=== PATIENT | female | born 1960 | race Caucasian/White ===

== ENCOUNTER 2016-06-06 17:44 | Emergency (ER) | payer MEDICARE, MEDICAID ==
[2016-06-06 18:39] VITALS: BP 116/40
--- NOTE | 2016-06-06 18:49 | UC ---
General HPI - HPI Summary HPI Summary: complaint of cough , nasal congestion and headache that started approx 10 days occasionally productive cough with yellow sputum nasal congestion has become purulent sinus pressure for the last several days denies fever, sore throat, ear pain coughing spasms occasionally uses her nebulizer with relief approx 2x day for the last 2 weeks seen by cardiology and started on increase in lasix but feels no different- last dose yesterday denies feeling shortness of breath at this time, edema in BLE normal for her denies chest pain, palpitations, nauseous, dizziness, denies wheezing in her chest - History of Current Complaint Chief Complaint: UCGeneralIllness Stated Complaint: COUGH/CHEST CONGESTION Time Seen by Provider: 06/06/16 18:37 - Allergy/Home Medications Allergies/Adverse Reactions: Allergies Allergy/AdvReac Type Severity Reaction Status Date / Time Latex Allergy Itching Verified 06/06/16 18:39 Meloxicam [From Mobic] Allergy Rash Verified 05/01/15 11:31 Penicillins [PCN] Allergy Rash Verified 05/01/15 11:31 Home Medications: Home Medications Losartan Potassium [Cozaar] 25 mg PO DAILY 06/06/16 [History Confirmed 06/06/16] Spironolactone [Aldactone 25 MG-] 25 mg PO DAILY 06/06/16 [History Confirmed 12/14] PMH/Surg Hx/FS Hx/Imm Hx Previously Healthy: No - chronic CHf Endocrine History Of: Reports: Diabetes Denies: Thyroid Disease Cardiovascular History Of: Reports: Cardiac Disorders - A-fib, Hypertension Denies: Pacemaker/ICD, Congestive Heart Failure, Deep Vein Thrombosis Respiratory History Of: Reports: Asthma, Pneumonia Denies: COPD, Pulmonary Embolism GI/ History Of: Denies: Ulcer, Gastrointestinal Bleed, Gall Bladder Disease, Kidney Stones Neurological History Of: Denies: Dementia, Seizures Cancer History Of: Denies: Lung Cancer Other History Of: Anticoagulant Therapy - Surgical History Surgical History: Yes Surgery Procedure, Year, and Place: Cryo ablation, hysterectomy, hernia repair, cholecystectomy, knee surgery, cervical spine placement - Family History Known Family History: Positive: Cardiac Disease - mother, Hypertension - father Negative: Diabetes - Social History Occupation: Disabled Alcohol Use: None Substance Use Type: None Smoking Status (MU): Never Smoked Tobacco - Immunization History Most Recent Influenza Vaccination: fall 2014 Most Recent Tetanus Shot: unknown - received in past Most Recent Pneumonia Vaccination: never Review of Systems Constitutional: Negative Skin: Negative Eyes: Negative ENT: Ear Ache, Nasal Discharge Respiratory: Cough Cardiovascular: Negative Gastrointestinal: Negative Genitourinary: Negative Motor: Negative Neurovascular: Negative Musculoskeletal: Negative Neurological: Negative Psychological: Negative All Other Systems Reviewed And Are Negative: Yes Physical Exam Triage Information Reviewed: Yes Appearance: No Pain Distress, Well-Nourished, Obese Vital Signs: Initial Vital Signs Temp 97.8 F 06/06/16 18:32 Pulse 90 06/06/16 18:32 Resp 16 06/06/16 18:32 BP 116/40 06/06/16 18:32 Pulse Ox 99 06/06/16 18:32 Vital Signs Reviewed: Yes Eyes: Positive: Conjunctiva Clear ENT: Positive: Pharyngeal erythema, Nasal congestion, Nasal drainage, TM bulging , Other: - maxillary sinus tenderness. Negative: TM red Neck: Positive: No Lymphadenopathy Respiratory: Positive: Lungs clear, Normal breath sounds, No respiratory distress. Negative: Decreased breath sounds, Crackles, Rhonchi, Wheezing Cardiovascular: Positive: RRR, No Murmur, Pulses Normal Bowel Sounds: Positive: Present Musculoskeletal: Positive: Edema @ - BLE 1+ ankles Neurological: Positive: Alert Psychological Exam: Normal Skin Exam: Normal Course/Dx - Course Course Of Treatment: exam completed. will treat for siusitis d/t length of illness. lung sounds clear, edema in BLKE normal for patient denies s/s of CHF at this time, has followup with Dr Perez in 2 days - Differential Dx - Multi-Symptom Provider Diagnoses: sinusitis secondary to URI - Physician Notifications Discussed Patient Care With: Dr Restrepo Time Discussed With Above Provider: 19:04 Discharge - Discharge Plan Condition: Stable Disposition: HOME Prescriptions: DOXYcycline CAP(*) [DOXYcycline 100MG CAP(*)] 100 mg PO BID #20 cap Patient Education Materials: Sinusitis (ED) Referrals: Deneen Perez MD [Medical Doctor] - Additional Instructions: Please followup with Dr Perez regarding your lasix and CHF SINUSITIS What is Sinusitis? Sinusitis is inflammation or infection of the lining of the sinuses behind the bones in your cheeks or forehead. Sinusitis may occur following a common cold, flu, or other infection; allergies; a tooth infection that spreads to the sinuses; swimming in contaminated water; pressure changes in airplanes at high altitudes; violent sneezing or nose blowing or smoking or breathing other peoples smoke. Symptoms Might Include: Nasal Congestion Sneezing Watery eyes, eye irritation, or eye itching Headaches Pressure in the cheeks Wheezing Trouble smelling Sore throat and coughing may occur Treatment Recommendations: Take medicines as prescribed until completely gone. Drink plenty of fluids. Use saline nose spray to thin the mucous and help the sinuses drain. Use a vaporizer or humidifier. Apply warm compresses to the face or forehead several times a day for 10 to 20 minutes. Call Your Doctor or Return Here IF: Your pain increases during treatment. You develop a high temperature. You develop unusual swelling around the eyes. You have difficulty with your vision. You develop a severe headache, earache, or toothache. You develop increased fever or fever that does not respond to medication such as Tylenol?. You have difficulty breathing or catching your breath. You begin to have any other new symptoms that worry you
[2016-06-06] MEDS ORDERED: DOXYcycline CAP(*) 100 MG PO ONE (19:00)
== END 2016-06-06 19:28 | disposition home or self-care (01) ==
LOC: UCCORT 17:44
DX: J06.9 Acute upper respiratory infection, unspecified (principal); J32.9 Chronic sinusitis, unspecified; Z88.0 Allergy status to penicillin; Z88.8 Allergy status to other drugs, medicaments and biological substances
CPT/HCPCS: 99212; A9270-GY; G0463

== ENCOUNTER 2017-07-02 09:26 | Inpatient (IN) | payer MEDICARE, MEDICAID ==
[2017-07-02] MEDS ORDERED: NS 0.9% 1000 ML* 1,000 ML IV ONE (10:21)
--- NOTE | 2017-07-02 10:34 | RAD ---
HISTORY: Neurological changes, code carrillo COMPARISONS: None TECHNIQUE: Multiple contiguous axial CT scans were obtained of the head without intravenous contrast. FINDINGS: HEMORRHAGE/INFARCT: There is no hemorrhage or acute infarct. MASSES/SHIFT: There is no mass or shift. EXTRA-AXIAL SPACES: There are no extra-axial fluid collections. SULCI AND VENTRICLES: The sulci and ventricles are normal in size and position for the patient's stated age. CEREBRUM: There are no focal parenchymal abnormalities. BRAINSTEM: There are no focal parenchymal abnormalities. CEREBELLUM: There are no focal parenchymal abnormalities. VESSELS: The vessels are grossly normal. PARANASAL SINUSES: The paranasal sinuses are clear. ORBITS: The orbits are unremarkable. BONES AND SOFT TISSUE: Instantly noted is a dysraphic defect of the posterior arch of C1. OTHER: None IMPRESSION: NO ACUTE INTRACRANIAL PATHOLOGY. PRELIMINARY FINDINGS WERE DISCUSSED WITH DR. WEBER IN THE EMERGENCY DEPARTMENT AT APPROXIMATELY 10:30 AM ON JULY 02, 2017.
[2017-07-02 10:40] LABS: ABS Basophils 0.1 10^3/ul (0-0.2); ABS Eosinophils 0.2 10^3/ul (0-0.6); ABS Lymphocytes 1.8 10^3/ul (1.0-4.8); ABS Neutrophils 10.7 10^3/ul (1.5-7.7); ABS Nucleated RBC 0 10^3/ul; Eosinophil % 1.4 % (0-6); Hematocrit 44 % (35-47); Hemoglobin 14.5 g/dl (12.0-16.0); Lymphocyte % 13.4 % (25-47); Mean Corpuscular HGB Conc 33 g/dl (31-36); Mean Corpuscular Hemoglobin 31 pg (27-31); Mean Corpuscular Volume 92 fL (80-97); Mean Platelet Volume 8 um3 (7.4-10.4); Nucleated Red Blood Cells % 0; Platelet Count 277 10^3/ul (150-450); Red Blood Count 4.76 10^6/ul (4.0-5.4); Red Cell Distribution Width 14 % (10.5-15); White Blood Count 13.8 10^3/ul (3.5-10.8)
[2017-07-02] MEDS ORDERED: Ondansetron INJ* 2 MG/ML VIAL IV ONE (10:48)
[2017-07-02 10:56] LABS: EGFR Non-African American 102.3 (>60)
[2017-07-02 11:01] LABS: INR 0.94 (0.77-1.02)
[2017-07-02] MEDS ORDERED: Iodixanol* (CONTRAST) 320 MG/ML 100 ML SDV IV ONE (11:17)
[2017-07-02 11:35] LABS: Urine Appearance Clear; Urine Blood 1+ (Negative); Urine Color Yellow; Urine Ketones Negative (Negative); Urine Protein Negative (Negative); Urine Specific Gravity 1.024 (1.010-1.030); Urine Urobilinogen Negative (Negative)
--- NOTE | 2017-07-02 11:52 | RAD ---
HISTORY: Neurological changes COMPARISONS: May 01, 2015 VIEWS: 1: frontal portable view of the chest at 11:23 AM FINDINGS: LINES AND TUBES: None. CARDIOMEDIASTINAL SILHOUETTE: The cardiac silhouette is enlarged. The cardiomediastinal silhouette is otherwise normal for portable technique. PLEURA: The costophrenic angles are sharp. No pleural abnormalities are noted. LUNG PARENCHYMA: The lungs are clear. ABDOMEN: The upper abdomen is clear. There is no subphrenic gas. BONES AND SOFT TISSUES: The patient is status post anterior cervical fusion. IMPRESSION: CARDIOMEGALY. NO ACTIVE CARDIOPULMONARY DISEASE.
--- NOTE | 2017-07-02 12:06 | RAD ---
HISTORY: Left-sided weakness COMPARISONS: Head CT dated July 02, 2017, CT of the chest dated May 02, 2015 TECHNIQUE: Multiple contiguous axial CT scans were obtained of the head and neck after the administration of nonionic intravenous contrast timed to the systemic arterial phase of contrast enhancement. Coronal and sagittal multiplanar reformations are submitted for review. Multiple 3-D maximum intensity projection reconstructions are also submitted for review. FINDINGS: Evaluation is limited by suboptimal contrast opacification. CTA NECK: AORTIC ARCH: There is a normal three-vessel branching pattern of the aortic arch. There is no ostial or proximal stenosis of the cephalic great vessels. RIGHT VERTEBRAL ARTERY: There is loss of contrast enhancement of the distal V3 and V4 segments of the right vertebral artery, with reconstitution just proximal to the vertebrobasilar junction. This includes the expected origin of the right posterior inferior cerebellar artery, which is also not seen. LEFT VERTEBRAL ARTERY: The left vertebral artery is patent along its course, without stenosis. DOMINANCE: The left vertebral artery is dominant. RIGHT COMMON CAROTID ARTERY: The right common carotid artery is patent. The right carotid bifurcation occurs at C3-C4 RIGHT INTERNAL CAROTID ARTERY: There is no right internal carotid artery stenosis by NASCET criteria. RIGHT EXTERNAL CAROTID ARTERY: The right external carotid artery is unremarkable. LEFT COMMON CAROTID ARTERY: The left common carotid artery is patent. The left carotid bifurcation occurs at C3-C4 LEFT INTERNAL CAROTID ARTERY: There is no left internal carotid artery stenosis by NASCET criteria. LEFT EXTERNAL CAROTID ARTERY: The left external carotid artery is unremarkable. VENOUS CIRCULATION: The venous system is unremarkable. SALIVARY GLANDS: The parotid glands, submandibular glands, sublingual glands are normal. NASAL CAVITY/NASOPHARYNX: The nasal cavity and nasopharynx are normal. ORAL CAVITY/OROPHARYNX: The oral cavity and oropharynx are unremarkable. LARYNGEAL APPARATUS/HYPOPHARYNX: The laryngeal apparatus and hypopharynx are normal. UPPER AIRWAY/UPPER ESOPHAGUS: The visualized upper airway and esophagus are normal. LUNG APICES: There are multiple enlarged prevascular and paratracheal lymph nodes measuring up to 2.2 centers in short axis. This is new when compared to CT of the chest dated May 02, 2015. THYROID GLAND: The thyroid gland is normal. LYMPH NODES: As noted above, there are enlarged mediastinal lymph nodes. There is no appreciable cervical lymphadenopathy by size criteria. BONES AND SOFT TISSUES: Degenerative changes noted of the spine. The patient is status post anterior cervical fusion. Incidentally noted is a dysraphic defect of the arch of C1. CTA HEAD: INTRACRANIAL CIRCULATION: As noted above, there is loss of contrast enhancement of the distal right vertebral artery, including the expected origin of PICA which is not visualized. There is distal reconstitution of the V4 segment just proximal to the vertebrobasilar junction, likely from retrograde flow. Elsewhere, there is no aneurysm, vascular malformation, occlusion, or stenosis of the visualized intracranial circulation. The anterior communicating artery complex is clear. Bilateral posterior communicating arteries are identified. VENOUS CIRCULATION: The venous system is unremarkable. PERFUSION: There is no obvious parenchymal perfusion deficit. HEMORRHAGE/INFARCT: There is no hemorrhage or acute infarct. MASSES/SHIFT: There is no mass or shift. EXTRA-AXIAL SPACES: There are no extra-axial fluid collections. SULCI AND VENTRICLES: The sulci and ventricles are normal in size and position for the patient's stated age. CEREBRUM: There are no focal parenchymal abnormalities. BRAINSTEM: There are no focal parenchymal abnormalities. CEREBELLUM: There are no focal parenchymal abnormalities. PARANASAL SINUSES: The paranasal sinuses are clear. ORBITS: The orbits are unremarkable. BONES AND SOFT TISSUE: No bone or soft tissue abnormalities are noted. OTHER: There is no abnormal enhancement. IMPRESSION: 1. THERE IS LOSS OF CONTRAST ENHANCEMENT OF THE DISTAL RIGHT VERTEBRAL ARTERY, CONCERNING FOR DISTAL RIGHT VERTEBRAL ARTERY OCCLUSION, INCLUDING THE EXPECTED LOCATION OF THE ORIGIN OF THE RIGHT POSTERIOR INFERIOR CEREBELLAR ARTERY, WHICH IS ALSO NOT VISUALIZED AND PRESUMABLY OCCLUDED. 2. NO INTERNAL CAROTID ARTERY STENOSIS BY NASCET CRITERIA. 3. MEDIASTINAL LYMPHADENOPATHY PRELIMINARY FINDINGS WERE DISCUSSED WITH DR. WEBER IN THE EMERGENCY DEPARTMENT AT APPROXIMATELY 12 NOON ON JULY 02, 2017. . CPT II Codes: 3100F
[2017-07-02] MEDS ORDERED: Furosemide TAB* 20 MG PO SCH (14:00)
[2017-07-02] MEDS ORDERED: Dextrose 50% Syringe 50 ML* 25 GM/50 ML SYRINGE IV PUSH PRN (15:02)
[2017-07-02] MEDS ORDERED: amLODIPine TAB* 5 MG PO STA (15:05)
--- NOTE | 2017-07-02 15:39 | CONS ---
NEUROLOGY CONSULTATION: DATE OF CONSULT: 07/02/17 REQUESTING PHYSICIAN: Dr. Mcbride REASON FOR CONSULT: Marley arroyo. CHIEF COMPLAINT: Left-sided weakness and numbness. HISTORY OF PRESENT ILLNESS: Mylene Mendoza is 57-year-old woman with a history of type 2 diabetes; atrial fibrillation, on Pradaxa as well as morbid obesity, hypertension, and dyslipidemia who presents to the emergency department with the acute onset of left-sided numbness and weakness at approximately 8:15 this morning. She was seated on her couch using her laptop when she started to have a funny sensation in the back of her head/neck. She went to sit forward and states that she had the acute onset of numbness and a heavy feeling in her left arm and leg. She also remarked that her vision became blurry and she felt a sense of nausea. She may have also experienced some dizziness/vertigo at that time, but is no longer experiencing that now, though she does remain nauseated. Her daughter tried to help her get off the couch to ambulate to the bathroom and noticed that her meal attendant on her arm on the left side was weaker than normal. In addition, the patient felt that she could not move her left leg and began to cry when she realized she could not walk and so she sat down in a chair next to the couch. At that point, her daughter activated EMS and she was brought in. Upon Dr. Mcbride's evaluation of the patient a marley arroyo was called. The patient denies any past history of TIA or stroke. She mentions that when her daughter was a baby, she would have brief episodes of tingling involving her lips, but otherwise no previous history of neurologic changes. She has a right sided headache now but reports a history of only one migraine headache in her life. She takes her Pradaxa regularly and took it yesterday, though has not yet taken it this morning. She is not a candidate for tPA secondary to use of Pradaxa. PAST MEDICAL HISTORY: 1. Atrial fibrillation diagnosed in 2014. 2. Hypertension. 3. Dyslipidemia. 4. Asthma. 5. GERD. 6. Vih-fdpmwnv-iqqxspbmt type 2 diabetes. 7. Back pain. 8. Morbid obesity. 9. Overactive bladder. PAST SURGICAL HISTORY: 1. Hysterectomy. 2. Hernia repair. 3. Cholecystectomy. 4. Knee surgery. 5. C-spine pin placement. HOME MEDICATIONS: Home medications still need to be confirmed, but according to the list in [employer] include the following; 1. Metformin 500 mg daily. 2. Spironolactone 25 mg daily. 3. Ropinirole 0.5 mg twice daily. 4. Omeprazole 20 mg daily. 5. Multivitamin daily. 6. Singulair 10 mg daily. 7. Metoprolol 75 mg b.i.d. 8. Magnesium oxide 1 tablet daily. 9. Losartan 25 mg daily. 10. Furosemide 20 mg Tuesdays and . 11. Digoxin 0.25 mg daily. 12. Dabigatran 150 mg twice daily. 13. Vitamin C 500 mg daily. 14. Tylenol 1300 mg b.i.d. ALLERGIES: LATEX causes itching, and MELOXICAM and PENICILLINS cause rash. FAMILY HISTORY: There is a history of stroke, coronary artery disease, diabetes and hypertension in the patient's father. Mother had type 2 diabetes, hypertension, and coronary artery disease and a sister also has coronary artery disease. SOCIAL HISTORY: The patient lives at home with family. She does not smoke and drinks alcohol occasionally. REVIEW OF SYSTEMS: As per HPI, otherwise negative. PHYSICAL EXAM: Vital Signs: Temperature 97.4, blood pressure 128/75, heart rate 91, and oxygen saturation 94% to 96% on room air. On general examination, she is in no acute distress, lying on the ER gurney. She is morbidly obese. She is very poorly groomed and smells malodorous. Her heart is in an irregular rate and rhythm. Lungs were clear. Her skin is intact , but the soles of her feet have caked dirt on them. Her finger nails are dirty. Her affect is appropriate. On neurologic examination, she is fully awake, alert, and oriented. She has no aphasia or dysarthria. On cranial nerve testing, pupils are equal, round, and reactive from 3 to 2 mm. Versions were full, but there was some nystagmus on right lateral gaze with some torsional component. Alvarado were full to confrontation with no extinction to double simultaneous stimulation. Facial sensation and musculature are full and symmetric. Hearing is intact to voice. The palate elevates symmetrically and the tongue is midline. On motor examination, she gives good resistance in the proximal upper and lower extremities. Elbow flexion and extension also appears relatively full. She does have some drift of the left arm when completing the stroke scale, but it does not hit the bed. She is not able to fully flex her left lower extremity at the knee though she does give good resistance to the degree that she is able to flex the knee. The right upper and lower extremities are full strength. On sensory testing, pinprick is symmetric in the upper extremities, but subjectively decreased slightly in the left lower extremity. It appears that she may not be able to distinguish dull from sharp in the left lower extremity, but this is also questionable on the right lower extremity. [id number] was slow, but no clear ataxia on the left and normal on the right. [id number] was normal on the right and she could not perform on the left secondary to weakness. Her NIH stroke scale is 2, one point for each extremity on the left. DIAGNOSTIC STUDIES/LAB DATA: Her CBC is notable for a white count of 13.8 with elevated absolute neutrophils of 10.7. No coagulation studies are available. CMP is notable for a nonfasting glucose of 194 and otherwise just a slightly low chloride of 100 and elevated BUN to creatinine ratio of 31.7. Her nonfasting lipids show triglycerides 308, cholesterol 196, LDL 98, HDL 36.5. Noncontrast brain CT showed no acute intracranial abnormality and no evidence of prior infarction or clear evidence of small vessel disease. IMPRESSION: Mylene Mendoza is 57-year-old woman with a history of multiple cardiovascular risk factors including atrial fibrillation, on Pradaxa; hypertension; diabetes as well as morbid obesity, who presented to the emergency department with acute onset of left-sided weakness and numbness associated with some blurring of her vision and nausea. Her exam overall at this point is not very impressive, though I do note that she has some nystagmus when looking towards the right and she may have some subtle left-sided weakness as well as some subtle sensory changes on the left. She is not a candidate for tPA given the presence of Pradaxa and also her relatively minor deficits at this point. Stroke is within the differential and given the nystagmus seen on exam as well as the nausea and possible vertigo, I would consider a posterior circulation event and so I have asked Dr. Mcbride to get a CT angiogram of the head and neck here in the emergency department before making further decisions on whether she should be admitted to this hospital or not. If this were to show any signs of a large vessel occlusion then she would likely need to be transferred out, though I have low suspicion for that at this point based on her exam. If the CTA is unremarkable, then she should be admitted for stroke workup including MRI scan of the brain as well as monitoring on telemetry, echocardiogram, fasting lipid profile, and rechecking the hemoglobin A1c. At this point, I will continue her on her Pradaxa. I also note that her white count is elevated and it is not clear at this time if this is infectious in nature, but should be followed up on. I note that she has had some previous high white counts historically as well. Dr. Sanchez and Dr. Harkins will be taking over this weekend and will receive sign out on the patient if she remains in this hospital. [id number]/[facility] #: [id number] LARRY
--- NOTE | 2017-07-02 18:34 | ED ---
Nirali Sandoval Nilda, scribed for Kalpesh Mcbride MD on 07/02/17 at 1025 . Neurological HPI - HPI Summary HPI Summary: Code Mcdonnell [id number] This patient is a 57 year old F BIBA accompanied by family with a chief complaint of constant numbness and tingling in LUE and LLE since 814. Daughter reports pt could not walk because she was dragging left leg. Symptoms aggravated and alleviated by nothing. Per triage note, pt reports bilat blurred vision. Patient denies ALMONTE, dizziness, and diplopia. - History of Current Complaint Chief Complaint: EDNeurologicalDeficit Stated Complaint: WEAKNESS Time Seen by Provider: 07/02/17 10:13 Hx Obtained From: Patient Onset/Duration: Sudden Onset, Started hours ago Timing: Constant Pain Intensity: 0 Pain Scale Used: 0-10 Numeric Character: Weak - left sided Aggravating: Nothing Alleviating: Nothing - Allergy/Home Medications Allergies/Adverse Reactions: Allergies Allergy/AdvReac Type Severity Reaction Status Date / Time latex Allergy Itching Verified 07/02/17 15:18 meloxicam Allergy Rash Verified 07/02/17 15:18 Penicillins Allergy Rash Verified 07/02/17 15:18 Home Medications: Home Medications Acetaminophen [Tylenol 8 Hour Arthritis] 1,300 mg PO BID 07/02/17 [History Confirmed 07/02/17] Ascorbic Acid TAB* [Vitamin C TAB*] 500 mg PO DAILY 07/02/17 [History Confirmed 07/02/17] Losartan TAB* [Cozaar TAB*] 25 mg PO DAILY 07/02/17 [History Confirmed 07/02/17] Metoprolol Succinate XL TAB* [Toprol XL TAB*] 75 mg PO BID 07/02/17 [History Confirmed 07/02/17] Multivitamins/Minerals TAB* [Theragran/minerals TAB*] 1 tab PO DAILY 07/02/17 [ History Confirmed 07/02/17] Omeprazole CAP* [Prilosec CAP* 20 MG] 20 mg PO DAILY 07/02/17 [History Confirmed 07/02/17] Ropinirole TAB* [Requip TAB*] 0.5 mg PO BID 07/02/17 [History Confirmed 07/02/17 ] Spironolactone TAB* [Aldactone TAB*] 25 mg PO DAILY 07/02/17 [History Confirmed 07/02/17] PMH/Surg Hx/FS Hx/Imm Hx Endocrine/Hematology History: Reports: Hx Anticoagulant Therapy, Hx Diabetes Denies: Hx Blood Disorders, Hx Blood Transfusions, Hx Bone Marrow Disease, Hx Systemic Lupus Erythematosus, Hx Sickle Cell Disease, Hx Thyroid Disease, Hx Anemia, Hx Unexplained Bleeding, Other Endocrine/Hematological Disorders Cardiovascular History: Reports: Hx Hypercholesterolemia, Hx Hypertension Denies: Hx Aneurysm, Hx Angina, Hx Angioplasty, Hx Auto Implanted Cardiovert Defib, Hx Cardiac Arrest, Hx Cardiomegaly, Hx Congenital Heart Disease, Hx Congestive Heart Failure, Hx Coronary Artery Disease, Hx Deep Vein Thrombosis, Hx Embolism, Hx Hypotension, Hx Pacemaker/ICD, Hx Peripheral Vascular Disease, Hx Rheumatic Fever, Hx Syncope, Hx Valvular Heart Disease, Other Cardiovascular Problems/Disorders Respiratory History: Reports: Hx Asthma, Hx Pneumonia, Hx Seasonal Allergies Denies: Hx Chronic Bronchitis, Hx Chronic Obstructive Pulmonary Disease (COPD ), Hx Cystic Fibrosis, Hx Lung Cancer, Hx Pulmonary Edema, Hx Pulmonary Embolism , Hx Sleep Apnea, Other Respiratory Problems/Disorders GI History: Reports: Hx Gastroesophageal Reflux Disease Denies: Hx Cirrhosis, Hx Crohn's Disease, Hx Diverticulosis, Hx Gall Bladder Disease, Hx Gastrointestinal Bleed, Hx Hiatal Hernia, Hx Irritable Bowel, Hx Jaundice, Hx Obstructive Bowel, Hx Ileostomy, Hx Pyloric Stenosis, Hx Ulcer, Other GI Disorders History: Reports: Hx Kidney Infection Denies: Hx Acute Renal Failure, Hx Benign Prostatic Hyperplasia, Hx Chronic Renal Failure, Hx Dialysis, Hx Kidney Stones, Other Problems/Disorders Musculoskeletal History: Reports: Hx Arthritis Denies: Hx Back Problems, Hx Bursitis, Hx Congenital Bone Abnormalities, Hx Fibromyalgia, Hx Gout, Hx Orthopedic Injury, Hx Scoliosis, Hx Tendonitis, Other Musculoskeletal History Sensory History: Reports: Hx Contacts or Glasses Opthamlomology History: Reports: Hx Contacts or Glasses Neurological History: Denies: Hx Dementia, Hx Seizures - Surgical History Surgery Procedure, Year, and Place: Cryo ablation, hysterectomy, hernia repair, cholecystectomy, knee surgery, cervical spine placement Hx Anesthesia Reactions: No Infectious Disease History: No Infectious Disease History: Reports: Hx Hepatitis - related to mono Denies: Hx Human Immunodeficiency Virus (HIV), Hx of Known/Suspected MRSA, Hx Shingles, Hx Tuberculosis, Hx Known/Suspected VRE, Hx Known/Suspected VRSA, History Other Infectious Disease, Traveled Outside the [place] in Last 30 Days - Family History Known Family History: Positive: Cardiac Disease - mother, Hypertension - father Negative: Diabetes - Social History Alcohol Use: Rare Substance Use Type: Reports: Prescribed Smoking Status (MU): Never Smoked Tobacco Review of Systems Positive: Blurred Vision - bilat. Negative: Diplopia Neurological: Other - negative dizziness Positive: Weakness - L-sided, Paresthesia - LUE and LLE, Numbness - LUE and LLE. Negative: Headache All Other Systems Reviewed And Are Negative: Yes Physical Exam - Summary Physical Exam Summary: VITAL SIGNS: Reviewed. GENERAL: Patient is an obese female who is lying comfortable in the stretcher. She has poor hygiene. Patient is not in any acute respiratory distress. HEAD AND FACE: No signs of trauma. No ecchymosis, hematomas or skull depressions. No sinus tenderness. EYES: PERRLA, EOMI x 2, No injected conjunctiva, no nystagmus. EARS: Hearing grossly intact. Ear canals and tympanic membranes are within normal limits. MOUTH: Oropharynx within normal limits. NECK: Supple, trachea is midline, no adenopathy, no JVD, no carotid bruit, no c- spine tenderness, neck with full ROM. CHEST: Symmetric, no tenderness at palpation LUNGS: Clear to auscultation bilaterally. No wheezing or crackles. CVS: Regular rate and rhythm, S1 and S2 present, no murmurs or gallops appreciated. ABDOMEN: Soft, non-tender. No signs of distention. No rebound no guarding, and no masses palpated. Bowel sounds are normal. EXTREMITIES: no edema, no cyanosis or clubbing. NEURO: Alert and oriented x 3. Speech is normal and follows commands. Left sided weakness, with NIH score: 4 SKIN: Dry and warm Triage Information Reviewed: Yes Vital Signs On Initial Exam: Initial Vitals Temp Pulse Resp BP Pulse Ox 97.4 F 88 18 112/83 93 07/02/17 09:34 07/02/17 09:34 07/02/17 09:34 07/02/17 09:34 07/02/17 09:34 Vital Signs Reviewed: Yes Diagnostics - Vital Signs Vital Signs Temp Pulse Resp BP Pulse Ox 07/02/17 10:00 98 128/75 94 07/02/17 09:36 83 18 93 07/02/17 09:34 97.4 F 88 18 112/83 93 - Laboratory Lab Results: Lab Results 07/02/17 07/02/17 07/02/17 Range/Units 10:29 10:33 10:33 WBC 13.8 H (3.5-10.8) 10^3/ul RBC 4.76 (4.0-5.4) 10^6/ul Hgb 14.5 (12.0-16.0) g/dl Hct 44 (35-47) % MCV 92 (80-97) fL MCH 31 (27-31) pg MCHC 33 (31-36) g/dl RDW 14 (10.5-15) % Plt Count 277 (150-450) 10^3/ul MPV 8 (7.4-10.4) um3 Neut % (Auto) 77.5 (38-83) % Lymph % (Auto) 13.4 L (25-47) % Aiken % (Auto) 7.0 (1-9) % Eos % (Auto) 1.4 (0-6) % Baso % (Auto) 0.7 (0-2) % Absolute Neuts (auto) 10.7 H (1.5-7.7) 10^3/ul Absolute Lymphs (auto) 1.8 (1.0-4.8) 10^3/ul Absolute Monos (auto) 1.0 H (0-0.8) 10^3/ul Absolute Eos (auto) 0.2 (0-0.6) 10^3/ul Absolute Basos (auto) 0.1 (0-0.2) 10^3/ul Absolute Nucleated RBC 0 10^3/ul Nucleated RBC % 0 INR (Anticoag Therapy) 0.94 (0.77-1.02) APTT 33.3 (26.0-36.3) seconds Sodium (133-145) mmol/L Potassium (3.5-5.0) mmol/L Chloride (101-111) mmol/L Carbon Dioxide (22-32) mmol/L Anion Gap (2-11) mmol/L BUN (6-24) mg/dL Creatinine (0.51-0.95) mg/dL Est GFR ( Amer) (>60) Est GFR (Non-Af Amer) (>60) BUN/Creatinine Ratio (8-20) Glucose (70-100) mg/dL POC Glucose (mg/dL) 181 H (70-100) mg/dL Lactic Acid (0.5-2.0) mmol/L Calcium (8.6-10.3) mg/dL Total Bilirubin (0.2-1.0) mg/dL AST (13-39) U/L ALT (7-52) U/L Alkaline Phosphatase (34-104) U/L Troponin I (<0.04) ng/mL Total Protein (6.4-8.9) g/dL Albumin (3.2-5.2) g/dL Globulin (2-4) g/dL Albumin/Globulin Ratio (1-3) Triglycerides mg/dL Cholesterol mg/dL LDL Cholesterol mg/dL HDL Cholesterol mg/dL Urine Color Urine Appearance Urine pH (5-9) Ur Specific Stendal (1.010-1.030) Urine Protein (Negative) Urine Ketones (Negative) Urine Blood (Negative) Urine Nitrate (Negative) Urine Bilirubin (Negative) Urine Urobilinogen (Negative) Ur Leukocyte Esterase (Negative) Urine WBC (Auto) (Absent) Urine RBC (Auto) (Absent) Ur Squamous Epith Cells (Absent) Urine Bacteria (Absent) Urine Glucose (Negative) Blood Type Antibody Screen 07/02/17 07/02/17 07/02/17 Range/Units 10:33 10:33 10:33 WBC (3.5-10.8) 10^3/ul RBC (4.0-5.4) 10^6/ul Hgb (12.0-16.0) g/dl Hct (35-47) % MCV (80-97) fL MCH (27-31) pg MCHC (31-36) g/dl RDW (10.5-15) % Plt Count (150-450) 10^3/ul MPV (7.4-10.4) um3 Neut % (Auto) (38-83) % Lymph % (Auto) (25-47) % Aiken % (Auto) (1-9) % Eos % (Auto) (0-6) % Baso % (Auto) (0-2) % Absolute Neuts (auto) (1.5-7.7) 10^3/ul Absolute Lymphs (auto) (1.0-4.8) 10^3/ul Absolute Monos (auto) (0-0.8) 10^3/ul Absolute Eos (auto) (0-0.6) 10^3/ul Absolute Basos (auto) (0-0.2) 10^3/ul Absolute Nucleated RBC 10^3/ul Nucleated RBC % INR (Anticoag Therapy) (0.77-1.02) APTT (26.0-36.3) seconds Sodium 137 (133-145) mmol/L Potassium 4.1 (3.5-5.0) mmol/L Chloride 100 L (101-111) mmol/L Carbon Dioxide 27 (22-32) mmol/L Anion Gap 10 (2-11) mmol/L BUN 19 (6-24) mg/dL Creatinine 0.60 (0.51-0.95) mg/dL Est GFR ( Amer) 131.6 (>60) Est GFR (Non-Af Amer) 102.3 (>60) BUN/Creatinine Ratio 31.7 H (8-20) Glucose 194 H (70-100) mg/dL POC Glucose (mg/dL) (70-100) mg/dL Lactic Acid 3.9 H* (0.5-2.0) mmol/L Calcium 9.6 (8.6-10.3) mg/dL Total Bilirubin 0.40 (0.2-1.0) mg/dL AST 13 (13-39) U/L ALT 17 (7-52) U/L Alkaline Phosphatase 61 (34-104) U/L Troponin I 0.00 (<0.04) ng/mL Total Protein 6.7 (6.4-8.9) g/dL Albumin 3.9 (3.2-5.2) g/dL Globulin 2.8 (2-4) g/dL Albumin/Globulin Ratio 1.4 (1-3) Triglycerides 308 mg/dL Cholesterol 196 mg/dL LDL Cholesterol 98 mg/dL HDL Cholesterol 36.5 mg/dL Urine Color Urine Appearance Urine pH (5-9) Ur Specific Stendal (1.010-1.030) Urine Protein (Negative) Urine Ketones (Negative) Urine Blood (Negative) Urine Nitrate (Negative) Urine Bilirubin (Negative) Urine Urobilinogen (Negative) Ur Leukocyte Esterase (Negative) Urine WBC (Auto) (Absent) Urine RBC (Auto) (Absent) Ur Squamous Epith Cells (Absent) Urine Bacteria (Absent) Urine Glucose (Negative) Blood Type O Positive Antibody Screen Negative 07/02/17 Range/Units 11:00 WBC (3.5-10.8) 10^3/ul RBC (4.0-5.4) 10^6/ul Hgb (12.0-16.0) g/dl Hct (35-47) % MCV (80-97) fL MCH (27-31) pg MCHC (31-36) g/dl RDW (10.5-15) % Plt Count (150-450) 10^3/ul MPV (7.4-10.4) um3 Neut % (Auto) (38-83) % Lymph % (Auto) (25-47) % Aiken % (Auto) (1-9) % Eos % (Auto) (0-6) % Baso % (Auto) (0-2) % Absolute Neuts (auto) (1.5-7.7) 10^3/ul Absolute Lymphs (auto) (1.0-4.8) 10^3/ul Absolute Monos (auto) (0-0.8) 10^3/ul Absolute Eos (auto) (0-0.6) 10^3/ul Absolute Basos (auto) (0-0.2) 10^3/ul Absolute Nucleated RBC 10^3/ul Nucleated RBC % INR (Anticoag Therapy) (0.77-1.02) APTT (26.0-36.3) seconds Sodium (133-145) mmol/L Potassium (3.5-5.0) mmol/L Chloride (101-111) mmol/L Carbon Dioxide (22-32) mmol/L Anion Gap (2-11) mmol/L BUN (6-24) mg/dL Creatinine (0.51-0.95) mg/dL Est GFR ( Amer) (>60) Est GFR (Non-Af Amer) (>60) BUN/Creatinine Ratio (8-20) Glucose (70-100) mg/dL POC Glucose (mg/dL) (70-100) mg/dL Lactic Acid (0.5-2.0) mmol/L Calcium (8.6-10.3) mg/dL Total Bilirubin (0.2-1.0) mg/dL AST (13-39) U/L ALT (7-52) U/L Alkaline Phosphatase (34-104) U/L Troponin I (<0.04) ng/mL Total Protein (6.4-8.9) g/dL Albumin (3.2-5.2) g/dL Globulin (2-4) g/dL Albumin/Globulin Ratio (1-3) Triglycerides mg/dL Cholesterol mg/dL LDL Cholesterol mg/dL HDL Cholesterol mg/dL Urine Color Yellow Urine Appearance Clear Urine pH 5.0 (5-9) Ur Specific Stendal 1.024 (1.010-1.030) Urine Protein Negative (Negative) Urine Ketones Negative (Negative) Urine Blood 1+ H (Negative) Urine Nitrate Negative (Negative) Urine Bilirubin Negative (Negative) Urine Urobilinogen Negative (Negative) Ur Leukocyte Esterase Negative (Negative) Urine WBC (Auto) Trace(0-5/hpf) (Absent) Urine RBC (Auto) Trace(0-2/hpf) (Absent) Ur Squamous Epith Cells Present H (Absent) Urine Bacteria 1+ H (Absent) Urine Glucose Negative (Negative) Blood Type Antibody Screen Result Diagrams: 07/02/17 10:33 07/02/17 10:33 Lab Statement: Any lab studies that have been ordered have been reviewed, and results considered in the medical decision making process. - CT CTA head/neck CT Interpretation Completed By: Radiologist - CTA Head/Neck, per radiologist, reveals 1. THERE IS LOSS OF CONTRAST ENHANCEMENT OF THE DISTAL RIGHT VERTEBRAL ARTERY, CONCERNING FOR DISTAL RIGHT VERTEBRAL ARTERY OCCLUSION, INCLUDING THE EXPECTED LOCATION OF THE ORIGIN OF THE RIGHT POSTERIOR INFERIOR CEREBELLAR ARTERY, WHICH IS ALSO NOT VISUALIZED AND PRESUMABLY OCCLUDED. 2. NO INTERNAL CAROTID ARTERY STENOSIS BY NASCET CRITERIA. 3. MEDIASTINAL LYMPHADENOPATHY Dr. Mcbride has reviewed this radiology report. CT brain CT Interpretation Completed By: Radiologist - CT brain, per radiologist, reveals NO ACUTE INTRACRANIAL PATHOLOGY. Dr. Mcbride has reviewed this radiology report. CXR CT Interpretation Completed By: Radiologist - CXR, per radiologist, reveals CARDIOMEGALY. NO ACTIVE CARDIOPULMONARY DISEASE. Dr. Mcbride has reviewed this radiology report. - EKG 1041 Cardiac Rate: Other Rate EKG Rhythm: Atrial Fibrillation - 97 bpm EKG Interpretation: no ST elevations NIH Scale - NIH Scale Level of Consciousness: Alert/Keenly Responsive Ask Patient the Month and His/Her Age: Both Correct Ask Pt to Open/Close Eyes and Program Medical Director/Release Non-Paretic Hand: Both Correctly Best Gaze (Only Horizontal Eye Movement): Normal Visual Field Testing: No Visual Loss Facial Paresis-Pt to Smile & Close Eyes or Grimace Symmetry: Normal/Symmetrical Motor Function - Right Arm: No Drift-Holds 10 Seconds Motor Function - Left Arm: Drifts LT 10 seconds Motor Function - Right Leg: No Drift-Holds 10 Seconds Motor Function - Left Leg: Drifts LT 10 seconds Limb Ataxia-Must be out of Proportion to Weakness Present: Present in One Limb Sensory (Use Pinprick to Test Arms/Legs/Trunk/Face): Pinprick Less on Affected Best Language (Describe Picture, Name Items): No Aphasia Dysarthria (Read Several Words): Normal Extinction and Inattention: No Abnormality Total Score: 4 Course/Dx - Course Assessment/Plan: This patient is a 57 year old F BIBA accompanied by family with a chief complaint of constant numbness and tingling LUE and LLE since 814. Daughter reports pt could not walk because she was dragging left leg. Symptoms aggravated and alleviated by nothing. Per triage note, pt reports bilat blurred vision. Patient denies ALMONTE, dizziness, and diplopia. Code Mcdonnell 1019. Labs tests unremarkable except for Lactic Acid 3.9, WBC 13.8, Urine Bacteria 1+, Urine blood 1+. An EKG reveals Afib, 97 bpm, no ST elevations. CT brain, per radiologist, reveals NO ACUTE INTRACRANIAL PATHOLOGY. Dr. Mcbride has reviewed this radiology report. CXR, per radiologist, reveals CARDIOMEGALY. NO ACTIVE CARDIOPULMONARY DISEASE. Dr. Mcbride has reviewed this radiology report. Dr. Carrizales at bedside. No candidate for TPA since patient is taking blood thinners. She recommends CTA. CTA Head/Neck, per radiologist, reveals. 1. THERE IS LOSS OF CONTRAST ENHANCEMENT OF THE DISTAL RIGHT VERTEBRAL ARTERY, CONCERNING. FOR DISTAL RIGHT VERTEBRAL ARTERY OCCLUSION, INCLUDING THE EXPECTED LOCATION OF THE ORIGIN OF THE RIGHT POSTERIOR INFERIOR CEREBELLAR ARTERY, WHICH IS ALSO NOT VISUALIZED AND PRESUMABLY OCCLUDED. 2. NO INTERNAL CAROTID ARTERY STENOSIS BY NASCET CRITERIA. 3. MEDIASTINAL LYMPHADENOPATHY. Dr. Mcbride has reviewed this radiology report. After CTA Dr. Carrizales recommends admission to the Hospitalist. I discuss my physical exam, findings and test results with Dr. Tai from the hospitalist services and she agrees to admit patient to his services. Patient is hemodynamically stable alert and oriented x 3. - Differential Dx Differential Diagnoses Neuro: Positive: Benign Paroxysmal Positional Vertigo, Carbon Monoxide Poisoning, Cerebrovascular Accident, Transient Ischemic Attack, Vasovagal Reaction - Diagnoses Provider Diagnoses: Ischemic cerebrovascular accident (CVA), Hyperglycemia - Physician Notifications Discussed Care Of Patient With: Анна Carrizales - Neurologist Time Discussed With Above Provider: 10:28 Instructed by Provider To: Other - pt is not candidate for tpA since pt is taking blood thinner. - Critical Care Time Critical Care Time: 75-104 min Discharge - Discharge Plan Condition: Stable Disposition: ADMITTED TO [facility] The documentation as recorded by the Nirali adkins Nilda accurately reflects the service I personally performed and the decisions made by me, Kalpesh Mcbride MD.
[2017-07-02] MEDS: Insulin LISPRO* 1 UNITS UNIT SUBCUT SCH ×2 (18:37→21:04)
[2017-07-02] MEDS ORDERED: Ondansetron INJ* 2 MG/ML VIAL IV PRN (18:48)
[2017-07-02] MEDS ORDERED: LORazepam INJ* 2 MG/ML 1 ML VIAL IV PUSH PRN (18:49)
--- NOTE | 2017-07-02 19:23 | HP ---
AMENDED REPORT NOW INCLUDES COSIGNER DESIGNATION - ESIGNED BEFORE ADJUSTMENT HISTORY AND PHYSICAL: DATE OF ADMISSION: 07/02/17 PRIMARY CARE PHYSICIAN: Dr. Eagle Schaeffer. MELTER CASTER: Deneen Perez MD ATTENDING PROVIDER: Dr. Tai * (DICTATED BY MIKO BOLES NP) CHIEF COMPLAINT: Numbness and tingling of the face, the left upper extremity and the left lower extremity since approximately 8:15 this morning. HISTORY OF PRESENT ILLNESS: This is a 57-year-old female patient with a history of coronary artery disease and heart failure, diabetes mellitus, hyperlipidemia, hypertension, who presented to the emergency department with these symptoms. The patient states she was dragging her left leg, was unable to walk, also had some blurred vision and some diplopia bilaterally. The patient stated that she did not have a headache or any dizziness, however, but that she felt like she could not ambulate and that she was dragging her left foot behind her. A Code Patel was called at 10:19 this morning when she arrived in the emergency department. CAT scan and CTA were performed in the emergency department. The CTA of the head and neck showed loss of contrast enhancement of the distal right vertebral artery concerning for distal right vertebral artery occlusion including the expected location of the origin of right posterior-inferior cerebellar artery which is also not visualized and presumably occluded. Also found that there was no internal carotid artery stenosis. There was some mediastinal lymphadenopathy. CT of the brain revealed no acute intracranial pathology and no intracranial hemorrhage. Chest x -ray showed some cardiomegaly, but no acute cardiopulmonary disease. EKG, the patient is in persistent atrial fibrillation, this is at her baseline. PAST SURGICAL HISTORY: Significant for: 1. Hysterectomy. 2. Hernia repair. 3. Cholecystectomy. 4. Knee surgery. 5. C-spine surgery. MEDICATIONS: At home include: 1. Ropinirole 0.5 mg 2 times a day. 2. Singulair 10 mg daily. 3. Pradaxa 150 mg 2 times a day. 4. Metformin 500 mg daily. 5. Spironolactone 25 mg daily. 6. Mag-Ox 400 mg daily. 7. Losartan 25 mg daily. 8. Lasix 2 tablets Tuesdays and p.r.n. 3-pound weight gain. 9. Digoxin 0.25 mg daily. 10. Vitamin C 500 mg daily. 11. Omeprazole 20 mg daily. 12. Metoprolol succinate 75 mg 2 times a day. 13. Tylenol as needed. 14. Multivitamin daily. SOCIAL HISTORY: The patient does not smoke, rarely drinks alcohol, does not use any illicit drug use. Her daughter, Miladis, is her healthcare proxy. She is a full code. REVIEW OF SYSTEMS: A 10-point review of systems is negative except as noted in the HPI. PHYSICAL EXAMINATION GENERAL: The patient is alert, morbidly obese, in no acute distress. She is oriented x3. VITAL SIGNS: Currently, temperature 97.4, heart rate 99, atrial fibrillation on the monitor; respiratory rate 20, satting at 93% on room air, blood pressure is 146/82. HEENT: The patient is atraumatic, normocephalic. PERRLA with nonicteric sclerae. NECK: Supple and no JVD noted. No carotid bruits auscultated. LUNGS: Clear bilaterally at the apices to auscultation. No wheezing, rhonchi, or rales noted at that bases. CARDIOVASCULAR: Rate and rhythm are irregular. She has atrial fibrillation on monitor. No murmurs, gallops, or rubs appreciated. ABDOMEN: Obese, nontender. MUSCULOSKELETAL: There is no clubbing, no cyanosis, no edema. She has brisk cap refill. NEUROLOGIC: She is intact. She does not have a pronator drift. No focal deficits noted. PSYCHIATRIC: She is cooperative and appropriate. LABORATORY DATA: WBC is 13.8, RBC is 4.76, hemoglobin 14.5, hematocrit 44, platelets 277,000. Sodium 137, potassium 4.1, chloride 100, CO2 of 27, BUN 19, creatinine 0.6, GFR 102.3, glucose 194, lactic acid 3.9, calcium 9.6, AST 13, ALT 17, alk phos 61. Troponin 0.00. Total protein 6.7. Albumin 3.9. Triglycerides 308. Total cholesterol 196, LDL 98, and HDL is 36.5. Urinalysis shows 1+ blood, squamous epithelial cells; negative for nitrites or leukocytes. Coags: INR is 0.94, APTT is 33.3. IMAGING: EKG shows persistent atrial fibrillation, rate between 80s and 90s. Chest x-ray shows cardiomegaly with no acute cardiopulmonary process. IMPRESSION: The patient has had an NIH stroke scale done in the ER and swallow eval. She has passed her swallow screen, so we can discontinue her n.p.o. order. Her NIH screen is 4. Neurology was already at the bedside for consultation. I believe she has been admitted to medical service, so this is a 57-year-old female with a history of cardiac disease, diabetes, and morbid obesity, who now presents with acute cerebrovascular accident presenting in the distal right vertebral artery. PLAN: The patient has already had CTA of the head and neck. Neurology will be following her. Lipids already have been drawn. We will follow labs again tomorrow. The patient is already anticoagulated on Pradaxa for her atrial fibrillation, so we will look to Neurology for further recommendations concerning the stroke at this time. She does not have any overt deficits currently, so assuming that we will do risk optimization with this patient, she is not in rapid ventricular response and her atrial fibrillation seems to be at baseline. We will continue her home medications as ordered with the exception of her metformin. She will be placed on lispro sliding scale. Consistent carb diet and telemetry. Again, we will look to Neurology for any additional input on this patient's case. The patient is a full code. Again, her daughter is her healthcare proxy. We will continue to follow this patient closely and look for any new changes. She will have neurologic checks q.4 hours. This plan has been discussed with Dr. Tyler Tai, he is in agreement with the plan. MIKO BOLES NP [id number]/CPS #: [id number] LARRY
--- NOTE | 2017-07-02 19:51 | RAD ---
INDICATION: Posterior circulation CVA. COMPARISON: Comparison is made with a prior CT angiogram of the head and neck and CT of the brain from every second 2018. TECHNIQUE: Sagittal T1, axial T1, T2, susceptibility, FLAIR and diffusion weighted images were obtained. The examination is limited. The patient did not completely fit into the head coil. FINDINGS: The ventricles, cisterns and sulci appear to be within normal limits. No significant focal abnormality or mass effect is seen. There is suggestion of a very small area of restricted diffusion in the anterior medulla on the right side measuring approximately 3 mm in size. There is also a second area of restricted diffusion which appears to be associated with a small extra-axial mass present at the vertex adjacent to the midline on the left side measuring 1.2 x 0.6 cm in size suspicious for a small meningioma. There is no evidence for hemorrhage. There is loss of the flow-void in the right vertebral artery suspicious for occlusion as noted on the prior CTA exam. The visualized portion of the paranasal sinuses and mastoid air cells appear clear. IMPRESSION: 1. LIMITED EXAM. 2. PROBABLE SMALL AREA OF RESTRICTED DIFFUSION AND INFARCT IN THE ANTERIOR ASPECT OF THE MEDULLA ON THE RIGHT SIDE. 3. PROBABLE OCCLUSION OF THE DISTAL RIGHT VERTEBRAL ARTERY. 4. SMALL EXTRA-AXIAL MASS PRESENT POSTERIORLY AT THE VERTEX ON THE LEFT SIDE SUSPICIOUS FOR MENINGIOMA. RECOMMEND FURTHER EVALUATION WITH A CONTRAST-ENHANCED MRI OF THE BRAIN.
[2017-07-02] MEDS ORDERED: Atorvastatin* 80 MG TAB PO ONE (20:16)
[2017-07-02] MEDS: CMC:Dabigatran CAP(NF) 150 MG CAP PO SCH (21:06)
[2017-07-02] MEDS: Metoprolol Succinate XL TAB* 25 MG PO SCH (21:06)
[2017-07-02] MEDS: Ropinirole TAB* 0.5 MG TAB PO SCH (21:06)
[2017-07-02] MEDS: Aspirin EC Low Dose* 81 MG TAB.EC PO SCH (21:06)
[2017-07-03 07:19] LABS: Hematocrit 42 % (35-47); Hemoglobin 13.9 g/dl (12.0-16.0); Mean Corpuscular HGB Conc 33 g/dl (31-36); Mean Corpuscular Hemoglobin 30 pg (27-31); Mean Corpuscular Volume 92 fL (80-97); Mean Platelet Volume 8 um3 (7.4-10.4); Platelet Count 264 10^3/ul (150-450); Red Blood Count 4.62 10^6/ul (4.0-5.4); Red Cell Distribution Width 14 % (10.5-15); White Blood Count 14.4 10^3/ul (3.5-10.8)
[2017-07-03] MEDS: Insulin LISPRO* 1 UNITS UNIT SUBCUT SCH ×4 (07:34→22:07)
[2017-07-03 07:38] LABS: EGFR Non-African American 104.3 (>60)
[2017-07-03] MEDS: Multivitamins/Minerals TAB PO SCH (08:33)
[2017-07-03] MEDS: Magnesium Oxide TAB* 400 MG PO SCH (08:33)
[2017-07-03] MEDS: Losartan TAB* 25 MG PO SCH (08:33)
[2017-07-03] MEDS: Omeprazole CAP* 20 MG PO SCH (08:33)
[2017-07-03] MEDS: CMC:Dabigatran CAP(NF) 150 MG CAP PO SCH ×2 (08:33→21:56)
[2017-07-03] MEDS: Aspirin EC Low Dose* 81 MG TAB.EC PO SCH (08:33)
[2017-07-03] MEDS: Spironolactone TAB* 25 MG PO SCH (08:33)
[2017-07-03] MEDS: Ascorbic Acid TAB* 500 MG PO SCH (08:33)
[2017-07-03] MEDS: Montelukast Sodium TAB* 10 MG PO SCH (08:33)
[2017-07-03] MEDS: Ropinirole TAB* 0.5 MG TAB PO SCH ×2 (08:33→21:56)
[2017-07-03] MEDS: Digoxin TAB* 0.25 MG PO SCH (08:33)
[2017-07-03] MEDS: Metoprolol Succinate XL TAB* 25 MG PO SCH ×2 (08:33→21:57)
[2017-07-03 08:37] LABS: Monocytes % 6 % (0-13)
--- NOTE | 2017-07-03 14:54 | PN ---
Subjective Date of Service: 07/03/17 Interval History: Feels stronger today. No new c/o. Objective Active Medications: Ascorbic Acid (Vitamin C Tab*) 500 mg PO DAILY [facility] Last Admin: 07/03/17 08:33 Dose: 500 mg Aspirin (Aspirin Ec Low Dose*) 81 mg PO DAILY [facility] Last Admin: 07/03/17 08:33 Dose: 81 mg Atorvastatin Calcium (Lipitor*) 80 mg PO 1700 [facility] Dabigatran (Pradaxa Cap(Nf)) 150 mg PO BID [facility] Last Admin: 07/03/17 08:33 Dose: 150 mg Dextrose (D50w Syringe 50 Ml*) 12.5 gm IV PUSH .FOR FS < 60 - SS PRN PRN Reason: FS < 60 Digoxin (Lanoxin Tab*) 0.25 mg PO DAILY [facility] Last Admin: 07/03/17 08:33 Dose: 0.25 mg Insulin Human Lispro (Humalog*) 0 units SUBCUT ACHS [facility] PRN Reason: Protocol Last Admin: 07/03/17 11:46 Dose: Not Given Lorazepam (Ativan Inj*) 1 mg IV PUSH ONCE PRN PRN Reason: ANXIETY FOR MRI Stop: 07/03/17 18:48 Losartan Potassium (Cozaar Tab*) 25 mg PO DAILY [facility] Last Admin: 07/03/17 08:33 Dose: 25 mg Magnesium Oxide (Magox 400 Tab*) 400 mg PO DAILY [facility] Last Admin: 07/03/17 08:33 Dose: 400 mg Metoprolol Succinate (Toprol Xl Tab*) 75 mg PO BID [facility] Last Admin: 07/03/17 08:33 Dose: 75 mg Montelukast Sodium (Singulair Tab*) 10 mg PO DAILY [facility] Last Admin: 07/03/17 08:33 Dose: 10 mg Multivitamins/Minerals (Theragran/Minerals Tab*) 1 tab PO DAILY [facility] Last Admin: 07/03/17 08:33 Dose: 1 tab Omeprazole (Prilosec Cap*) 20 mg PO DAILY [facility] Last Admin: 07/03/17 08:33 Dose: 20 mg Ondansetron HCl (Zofran Inj*) 4 mg IV Q6H PRN PRN Reason: NAUSEA Last Admin: 07/02/17 21:05 Dose: 4 mg Ropinirole HCl (Requip Tab*) 0.5 mg PO BID [facility] Last Admin: 07/03/17 08:33 Dose: 0.5 mg Spironolactone (Aldactone Tab*) 25 mg PO DAILY [facility] Last Admin: 07/03/17 08:33 Dose: 25 mg Vital Signs - 8 hr 07/03/17 07/03/17 07/03/17 08:10 08:33 11:14 Temperature 98.2 F 97.9 F Pulse Rate 101 100 85 Respiratory 18 22 Rate Blood Pressure 130/71 119/64 (mmHg) O2 Sat by Pulse 98 97 Oximetry Oxygen Devices in Use Now: None Appearance: Alert, partly up in bed. In good spirits. Looks comfortable. Eyes: No Scleral Icterus Neck: NL Appearance and Movements; NL JVP, No Thyroid Enlargement, Masses Respiratory: Symmetrical Chest Expansion and Respiratory Effort, Clear to Auscultation, Clear to Percussion Cardiovascular: NL Sounds; No Murmurs; No JVD, RRR, No Edema, - Neurological: Alert and Oriented x 3, NL Sensation - Moves all limbs well. Result Diagrams: 07/03/17 07:13 07/03/17 07:09 Additional Lab and Data: Lab Results 07/02/17 07/02/17 07/02/17 Range/Units 10:29 10:33 10:33 WBC 13.8 H (3.5-10.8) 10^3/ul RBC 4.76 (4.0-5.4) 10^6/ul Hgb 14.5 (12.0-16.0) g/dl Hct 44 (35-47) % MCV 92 (80-97) fL MCH 31 (27-31) pg MCHC 33 (31-36) g/dl RDW 14 (10.5-15) % Plt Count 277 (150-450) 10^3/ul MPV 8 (7.4-10.4) um3 Neut % (Auto) 77.5 (38-83) % Lymph % (Auto) 13.4 L (25-47) % Converse % (Auto) 7.0 (1-9) % Eos % (Auto) 1.4 (0-6) % Baso % (Auto) 0.7 (0-2) % Absolute Neuts (auto) 10.7 H (1.5-7.7) 10^3/ul Absolute Lymphs (auto) 1.8 (1.0-4.8) 10^3/ul Absolute Monos (auto) 1.0 H (0-0.8) 10^3/ul Absolute Eos (auto) 0.2 (0-0.6) 10^3/ul Absolute Basos (auto) 0.1 (0-0.2) 10^3/ul Absolute Nucleated RBC 0 10^3/ul Nucleated RBC % 0 INR (Anticoag Therapy) 0.94 (0.77-1.02) APTT 33.3 (26.0-36.3) seconds Sodium (133-145) mmol/L Potassium (3.5-5.0) mmol/L Chloride (101-111) mmol/L Carbon Dioxide (22-32) mmol/L Anion Gap (2-11) mmol/L BUN (6-24) mg/dL Creatinine (0.51-0.95) mg/dL Est GFR ( Amer) (>60) Est GFR (Non-Af Amer) (>60) BUN/Creatinine Ratio (8-20) Glucose (70-100) mg/dL POC Glucose (mg/dL) 181 H (70-100) mg/dL Lactic Acid (0.5-2.0) mmol/L Calcium (8.6-10.3) mg/dL Total Bilirubin (0.2-1.0) mg/dL AST (13-39) U/L ALT (7-52) U/L Alkaline Phosphatase (34-104) U/L Troponin I (<0.04) ng/mL Total Protein (6.4-8.9) g/dL Albumin (3.2-5.2) g/dL Globulin (2-4) g/dL Albumin/Globulin Ratio (1-3) Triglycerides mg/dL Cholesterol mg/dL LDL Cholesterol mg/dL HDL Cholesterol mg/dL Urine Color Urine Appearance Urine pH (5-9) Ur Specific [place] (1.010-1.030) Urine Protein (Negative) Urine Ketones (Negative) Urine Blood (Negative) Urine Nitrate (Negative) Urine Bilirubin (Negative) Urine Urobilinogen (Negative) Ur Leukocyte Esterase (Negative) Urine WBC (Auto) (Absent) Urine RBC (Auto) (Absent) Ur Squamous Epith Cells (Absent) Urine Bacteria (Absent) Urine Glucose (Negative) Blood Type Antibody Screen 07/02/17 07/02/17 07/02/17 Range/Units 10:33 10:33 10:33 WBC (3.5-10.8) 10^3/ul RBC (4.0-5.4) 10^6/ul Hgb (12.0-16.0) g/dl Hct (35-47) % MCV (80-97) fL MCH (27-31) pg MCHC (31-36) g/dl RDW (10.5-15) % Plt Count (150-450) 10^3/ul MPV (7.4-10.4) um3 Neut % (Auto) (38-83) % Lymph % (Auto) (25-47) % Converse % (Auto) (1-9) % Eos % (Auto) (0-6) % Baso % (Auto) (0-2) % Absolute Neuts (auto) (1.5-7.7) 10^3/ul Absolute Lymphs (auto) (1.0-4.8) 10^3/ul Absolute Monos (auto) (0-0.8) 10^3/ul Absolute Eos (auto) (0-0.6) 10^3/ul Absolute Basos (auto) (0-0.2) 10^3/ul Absolute Nucleated RBC 10^3/ul Nucleated RBC % INR (Anticoag Therapy) (0.77-1.02) APTT (26.0-36.3) seconds Sodium 137 (133-145) mmol/L Potassium 4.1 (3.5-5.0) mmol/L Chloride 100 L (101-111) mmol/L Carbon Dioxide 27 (22-32) mmol/L Anion Gap 10 (2-11) mmol/L BUN 19 (6-24) mg/dL Creatinine 0.60 (0.51-0.95) mg/dL Est GFR ( Amer) 131.6 (>60) Est GFR (Non-Af Amer) 102.3 (>60) BUN/Creatinine Ratio 31.7 H (8-20) Glucose 194 H (70-100) mg/dL POC Glucose (mg/dL) (70-100) mg/dL Lactic Acid 3.9 H* (0.5-2.0) mmol/L Calcium 9.6 (8.6-10.3) mg/dL Total Bilirubin 0.40 (0.2-1.0) mg/dL AST 13 (13-39) U/L ALT 17 (7-52) U/L Alkaline Phosphatase 61 (34-104) U/L Troponin I 0.00 (<0.04) ng/mL Total Protein 6.7 (6.4-8.9) g/dL Albumin 3.9 (3.2-5.2) g/dL Globulin 2.8 (2-4) g/dL Albumin/Globulin Ratio 1.4 (1-3) Triglycerides 308 mg/dL Cholesterol 196 mg/dL LDL Cholesterol 98 mg/dL HDL Cholesterol 36.5 mg/dL Urine Color Urine Appearance Urine pH (5-9) Ur Specific [place] (1.010-1.030) Urine Protein (Negative) Urine Ketones (Negative) Urine Blood (Negative) Urine Nitrate (Negative) Urine Bilirubin (Negative) Urine Urobilinogen (Negative) Ur Leukocyte Esterase (Negative) Urine WBC (Auto) (Absent) Urine RBC (Auto) (Absent) Ur Squamous Epith Cells (Absent) Urine Bacteria (Absent) Urine Glucose (Negative) Blood Type O Positive Antibody Screen Negative 07/02/17 Range/Units 11:00 WBC (3.5-10.8) 10^3/ul RBC (4.0-5.4) 10^6/ul Hgb (12.0-16.0) g/dl Hct (35-47) % MCV (80-97) fL MCH (27-31) pg MCHC (31-36) g/dl RDW (10.5-15) % Plt Count (150-450) 10^3/ul MPV (7.4-10.4) um3 Neut % (Auto) (38-83) % Lymph % (Auto) (25-47) % Converse % (Auto) (1-9) % Eos % (Auto) (0-6) % Baso % (Auto) (0-2) % Absolute Neuts (auto) (1.5-7.7) 10^3/ul Absolute Lymphs (auto) (1.0-4.8) 10^3/ul Absolute Monos (auto) (0-0.8) 10^3/ul Absolute Eos (auto) (0-0.6) 10^3/ul Absolute Basos (auto) (0-0.2) 10^3/ul Absolute Nucleated RBC 10^3/ul Nucleated RBC % INR (Anticoag Therapy) (0.77-1.02) APTT (26.0-36.3) seconds Sodium (133-145) mmol/L Potassium (3.5-5.0) mmol/L Chloride (101-111) mmol/L Carbon Dioxide (22-32) mmol/L Anion Gap (2-11) mmol/L BUN (6-24) mg/dL Creatinine (0.51-0.95) mg/dL Est GFR ( Amer) (>60) Est GFR (Non-Af Amer) (>60) BUN/Creatinine Ratio (8-20) Glucose (70-100) mg/dL POC Glucose (mg/dL) (70-100) mg/dL Lactic Acid (0.5-2.0) mmol/L Calcium (8.6-10.3) mg/dL Total Bilirubin (0.2-1.0) mg/dL AST (13-39) U/L ALT (7-52) U/L Alkaline Phosphatase (34-104) U/L Troponin I (<0.04) ng/mL Total Protein (6.4-8.9) g/dL Albumin (3.2-5.2) g/dL Globulin (2-4) g/dL Albumin/Globulin Ratio (1-3) Triglycerides mg/dL Cholesterol mg/dL LDL Cholesterol mg/dL HDL Cholesterol mg/dL Urine Color Yellow Urine Appearance Clear Urine pH 5.0 (5-9) Ur Specific [place] 1.024 (1.010-1.030) Urine Protein Negative (Negative) Urine Ketones Negative (Negative) Urine Blood 1+ H (Negative) Urine Nitrate Negative (Negative) Urine Bilirubin Negative (Negative) Urine Urobilinogen Negative (Negative) Ur Leukocyte Esterase Negative (Negative) Urine WBC (Auto) Trace(0-5/hpf) (Absent) Urine RBC (Auto) Trace(0-2/hpf) (Absent) Ur Squamous Epith Cells Present H (Absent) Urine Bacteria 1+ H (Absent) Urine Glucose Negative (Negative) Blood Type Antibody Screen Assess/Plan/Problems-Billing Assessment: - Patient Problems (1) CVA (cerebral vascular accident) Current Visit: Yes Status: Acute Code(s): I63.9 - CEREBRAL INFARCTION, UNSPECIFIED SNOMED Code(s): 912973619 Comment: R medulla. Continue ASA, dabigatran. Start atorvastatin. PT/OT ordered. Discussed with Dr. Sanchez on 07/03. (2) Atrial fibrillation with RVR Current Visit: No Status: Acute Priority: High Code(s): I48.91 - UNSPECIFIED ATRIAL FIBRILLATION SNOMED Code(s): 851351186962284 Comment: Continue Metoprolol,digoxin, pradaxa (3) DM type 2 (diabetes mellitus, type 2) Current Visit: No Status: Acute Priority: High Comment: Continue Lispro by SS. Metformin on hold. (4) HTN (hypertension) Current Visit: No Status: Acute Priority: High Code(s): I10 - ESSENTIAL ( PRIMARY) HYPERTENSION SNOMED Code(s): 59257632 Comment: Controlled with metoprolol, losartan. (5) GERD (gastroesophageal reflux disease) Current Visit: No Status: Acute Code(s): K21.9 - GASTRO-ESOPHAGEAL REFLUX DISEASE WITHOUT ESOPHAGITIS SNOMED Code(s): 405394734 Comment: Continue omeprazole. (6) Cardiomyopathy Current Visit: No Status: Acute Priority: High Code(s): I42.9 - CARDIOMYOPATHY, UNSPECIFIED SNOMED Code(s): 50847248 Comment: Non ischemic cardiomyopathy with severe left systolic ventricular dysfunction - EF 20%. Continue BB, spironolactone. (7) Morbid obesity Current Visit: Yes Status: Acute Code(s): E66.01 - MORBID (SEVERE) OBESITY DUE TO EXCESS CALORIES SNOMED Code(s): 496908980 Comment: BMI 54.9.
[2017-07-03] MEDS: Atorvastatin* 80 MG TAB PO SCH (17:05)
--- NOTE | 2017-07-03 21:27 | CONS ---
NEUROLOGY FOLLOWUP CONSULTATION: DATE OF FOLLOWUP: 07/03/17 LOCATION: She is in room 444. HOSPITALIST: Dr. Tai. CHIEF COMPLAINT: Left-sided weakness. INTERVAL HISTORY: Since yesterday, Ms. Mendoza feels that her left upper extremity and lower extrem ity function is much improved. She had a little bit of nausea last night, but none since. She was n ot able to use much of her hand yesterday and now she can open and close it. She does not notice any weakness in her legs at this point. She does not have any problems with vertigo, double vision, or any facial numbness or change in speech. I asked if she takes her Pradaxa on a regular basis and she insists that she does. She does not think she missed any doses the week before this event. MEDICATIONS: Reviewed and she is now on: 1. Aspirin 81 mg p.o. daily. 2. Atorvastatin 80 mg p.o. daily was added as well. 3. Pradaxa 150 mg p.o. b.i.d. 4. Digoxin 0.25 mg p.o. daily. 5. Sliding scale insulin. 6. Cozaar 25 mg p.o. daily. 7. Metoprolol XL 75 mg p.o. b.i.d. 8. Singulair 10 mg p.o. daily. 9. Multivitamins. 10. Ropinirole 0.5 mg p.o. b.i.d. 11. Spironolactone 25 mg p.o. daily PHYSICAL EXAMINATION: She is morbidly obese. Temperature 97.9, blood pressure is running at 120/60, heart rate is in 80s and irregularly irregular, respiratory rate 22, oxygen saturation 97% on room a ir. Heart: Irregular rhythm, but I do not hear any murmurs. Carotid pulses are not felt, but I do not hear any bruits either. Lungs: Clear. Neurological Exam: Pupils react equally from 3-1/2 to 2 mm. Visual enciso are full to confrontation . Fundi are normal. She has clockwise and left beating nystagmus in left gaze for about 8 to 10 yris ts. She has no nystagmus in other enciso of gaze. Facial musculature is intact and symmetric, and f acial sensation to temperature and light touch is symmetric. Palate and tongue appear normal, palate rises symmetrically, and tongue protrudes in the midline. There is no dysarthria. Hearing is intac t. Motor exam reveals a left pronator drift. She has normal strength proximally and distally in the low er extremities. She has mild left wrist extensor and ultrasonic solderer weakness. Sensory exam normal for mild vibratory loss in the feet. Light touch and pin discrimination are symm etric in the limbs. Finger taps are a little slow and clumsy in the left hand relative to the right. There is no tremor. Reflexes diffusely hypoactive, trace at the knees, absent at the ankles. Plantar responses flexor on the right and extensor on the left. She is alert and oriented and a fair historian with relatively intact memory. She has good attention , concentration, and fund of knowledge. Language is fluent. DIAGNOSTIC STUDIES/LAB DATA: Brain MRI from yesterday revealing a very small right anterior medullar y infarction. CT angiogram of the head and neck yesterday reveals occlusion of the distal right vert ebral artery. Other laboratory data notable for CBC with a slightly elevated white blood cell count today at 14.4, hemoglobin normal at 13.9 and platelet count 264,000. INR yesterday was 0.94 and PTT 33.3. Choleste rol yesterday was 196, LDL 98. Glucose today is 126. 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 I agree with Dr. Carrizales in adding aspirin 81 mg at least for a couple of months. I also a gree with Dr. Tai restarting atorvastatin. PT will be involved and OT as well. I will follow her along with you. [id number]/[facility] #: [id number]
[2017-07-03] MEDS: Nystatin TOP POWDER* 15 GM BTL TOPICAL SCH (21:57)
[2017-07-04] MEDS ORDERED: Acetaminophen TAB* 325 MG PO PRN (07:25)
[2017-07-04] MEDS: Insulin LISPRO* 1 UNITS UNIT SUBCUT SCH ×2 (07:38→11:55)
[2017-07-04] MEDS: Omeprazole CAP* 20 MG PO SCH (09:04)
[2017-07-04] MEDS: Digoxin TAB* 0.25 MG PO SCH (09:04)
[2017-07-04] MEDS: CMC:Dabigatran CAP(NF) 150 MG CAP PO SCH (09:04)
[2017-07-04] MEDS: Spironolactone TAB* 25 MG PO SCH (09:04)
[2017-07-04] MEDS: Multivitamins/Minerals TAB PO SCH (09:04)
[2017-07-04] MEDS: Metoprolol Succinate XL TAB* 25 MG PO SCH (09:04)
[2017-07-04] MEDS: Magnesium Oxide TAB* 400 MG PO SCH (09:05)
[2017-07-04] MEDS: Ropinirole TAB* 0.5 MG TAB PO SCH (09:05)
[2017-07-04] MEDS: Ascorbic Acid TAB* 500 MG PO SCH (09:05)
[2017-07-04] MEDS: Losartan TAB* 25 MG PO SCH (09:05)
[2017-07-04] MEDS: Montelukast Sodium TAB* 10 MG PO SCH (09:05)
[2017-07-04] MEDS: Aspirin EC Low Dose* 81 MG TAB.EC PO SCH (09:05)
[2017-07-04] MEDS: Nystatin TOP POWDER* 15 GM BTL TOPICAL SCH ×2 (09:06→15:21)
[2017-07-04] MEDS ORDERED: Metoprolol Tartrate TAB* 25 MG PO ONE (11:46)
--- NOTE | 2017-07-04 11:57 | PN ---
Progress Note - Progress Note Date of Service: 07/04/17 Note: Time spent on discharge 50 minutes.
--- NOTE | 2017-07-04 13:33 | ECHO ---
Patient: JUMA FUNG [facility] Rec#: [id number] : 1960 Date: 07/04/2017 Age: 57y Height: 167.64 cm / 66.0 in Weight: 156.04 kg / 343.9 lbs Sex: F BSA: 2.52 Room#: [facility] Type: Inpatient Referring: Arielle Rodriguez Reading: Alexis Ibrahim MD Mix Crusher Operator: Mariposa Le RDCS CC: Eagle Schaeffer MD Transthoracic Echocardiogram Indication: CVA BP: 112/45 HR: 85 Rhythm: A-Fib Findings History: Obesity, CAD, CHF, DM, HLD, HTN, A-fib. Technical Comments: The study quality is fair. The study is technically limited due to patient body habitus. Left Ventricle: The left ventricular chamber size is normal. Mild to moderate concentric left ventricular hypertrophy is observed. Global left ventricular wall motion and contractility are within normal limits. Left ventricular systolic function is at the lower limits of normal. The estimated ejection fraction is 50-55%. The assessment of diastolic function is non-diagnostic. Left Atrium: The left atrium is severely dilated. Right Ventricle: Moderator Band present. The right ventricle is mild to moderately dilated. The right ventricular global systolic function is mildly reduced. Right Atrium: The right atrial cavity size is severely dilated. A patent foramen ovale is visualized. There is a patent foramen ovale with predominant [id number] shunting. A patent foramen ovale is demonstrated by agitated contrast. Aortic Valve: The aortic valve is trileaflet. The aortic valve leaflets are mildly thickened. There is a trace of aortic regurgitation. There is no evidence of aortic stenosis. Mitral Valve: The mitral valve leaflets are mildly thickened. There is moderate mitral regurgitation. There is no evidence of mitral stenosis. Tricuspid Valve: The tricuspid valve leaflets are normal. There is trace tricuspid regurgitation. There is evidence that pulmonary hypertension may be underestimated. There is no tricuspid stenosis. Pulmonic Valve: The pulmonic valve appears normal. There is a trace pulmonic regurgitation. There is no pulmonic stenosis. Pericardium: There is no significant pericardial effusion. A pericardial fat pad is visualized. Aorta: There is no dilatation of the ascending aorta. There is mild dilatation of the aortic arch. There is mild dilatation of the aortic root. Pulmonary Artery: The main pulmonary artery appears normal. Venous: The inferior vena cava appears normal in size. There is a greater than 50% respiratory change in the inferior vena cava dimension. Contrast: Normal saline was used as contrast for the bubble study. Images 56 and 57. Intravenous contrast was used to help determine presence of intracardiac shunting. Summary: There was not any prior study for comparison. Conclusions The left ventricular chamber size is normal. Mild to moderate concentric left ventricular hypertrophy is observed. The estimated ejection fraction is 50-55%. The left atrium is severely dilated. The right ventricle is mild to moderately dilated. A patent foramen ovale is visualized. There is a patent foramen ovale with predominant [id number] shunting. A patent foramen ovale is demonstrated by agitated contrast. There is a trace of aortic regurgitation. There is moderate mitral regurgitation. There is trace tricuspid regurgitation. There is a trace pulmonic regurgitation. There is mild dilatation of the aortic arch. There is mild dilatation of the aortic root. Measurements Name Value Normal Range RVIDd (AP) 2D 4.3 cm (0.9 - 2.6) RVDdMajor (2D) 4.9 cm (2.2 - 4.4) RAd ISD 4CH 6.8 cm (3.4 - 4.9) RA (A4C)W 6.4 cm (2.9 - 4.6) IVSd (2D) 1.4 cm (0.6 - 1) LVPWd (2D) 1.3 cm (0.6 - 1) LVIDd (2D) 4.7 cm (3.6 - 5.4) LVIDs (2D) 3.2 cm - LV FS (2D) 31 % (25 - 45) Aortic Annulus 2.1 cm (1.4 - 2.6) Ao root diameter (2D) 3.6 cm (2.1 - 3.5) Ascending Ao 3.4 cm (2.1 - 3.4) Aortic arch 2.9 cm (1.8 - 3.4) LA dimension (AP) 2D 4.6 cm (2.3 - 3.8) LAd ISD 4CH 7.1 cm (2.9 - 5.3) LA ISD 4CH W 5.3 cm (2.5 - 4.5) Name Value Normal Range LA ESV SP 4CH (A/L) 141 ml - LA ESV SP 2CH (A/L) 130 ml - LA ESV BP (A/L) 142 ml - LA ESV BP (A/L) index 56 ml/m2 - LA ESV SP 4CH (MOD) 127 ml - LA ESV SP 2CH (MOD) 125 ml - Name Value Normal Range MV E-wave Vmax 0.94 m/sec - MV deceleration time 177.8 msec - MV E:A ratio 556.7 ratio - LV septal e' Vmax 0.08 m/sec - LV lateral e' Vmax 0.1 m/sec - LV E:e' septal ratio 11.75 ratio - LV E:e' lateral ratio 9.4 ratio - Name Value Normal Range AV Vmax 1.3 m/sec - AV VTI 18.48 cm - AV peak gradient 6.49 mmHg - AV mean gradient 2.36 mmHg - LVOT Vmax 0.8 m/sec - LVOT VTI 15.15 cm - LVOT peak gradient 2.6 mmHg - LVOT mean gradient 1.36 mmHg - ALEXIS Vmax 0.75 m/sec - Name Value Normal Range MR Vmax 5.25 m/sec - MR VTI 131.9 cm - MR flow (PISA) 136.6 ml/sec - MR ERO 0.26 cm2 - MR PISA radius 0.76 cm - MR alias Vmax 37.1 cm/sec - Name Value Normal Range TR Vmax 1.8 m/sec - TR peak gradient 13 mmHg - RAP 3 mmHg - RVSP 16 mmHg - IVC diameter 2.2 cm - Name Value Normal Range PV Vmax 0.65 m/sec - PV peak gradient 1.72 mmHg -
[2017-07-04 15:22] VITALS: BP 113/56
[2017-07-04] MEDS: Atorvastatin* 80 MG TAB PO SCH (17:09)
[2017-07-04] MEDS ORDERED: Metoprolol Tartrate TAB* 100 MG TAB PO SCH (21:00)
--- NOTE | 2017-07-04 22:08 | PN ---
NEUROLOGY FOLLOWUP NOTE: DATE OF FOLLOWUP: 07/04/17 LOCATION: She is an inpatient in room 444. HOSPITALIST: Dr. Tai. CHIEF COMPLAINT: Left-sided weakness. INTERVAL HISTORY: Since yesterday, Mylene feels her left-sided weakness is completely resolved. She was able to walk with a physical therapist down the sandhu to the end and back again without feeling unsteady or weak. She feels that her left arm function is back to normal. She has not noticed any incoordination in it. No numbness of the limbs or face or change in speech. MEDICATIONS: Reviewed and she remains on: 1. Pradaxa. 2. Aspirin 81 mg p.o. daily. 3. Atorvastatin 80 mg p.o. daily. 4. Digoxin 0.25 mg p.o. daily. 5. Sliding scale insulin. 6. Cozaar 25 mg p.o. daily. 7. Metoprolol XL 75 mg p.o. b.i.d. 8. Singulair 10 mg p.o. daily. 9. Omeprazole 20 mg p.o. daily. 10. Aldactone 25 mg p.o. daily. 11. Ropinirole 0.5 mg p.o. b.i.d. PHYSICAL EXAMINATION: On exam, she is well hydrated and obese. Temperature 98.2 orally, blood pressure 112/45, heart rate in the 80s and irregular. Neurologically, the patient's musculature is symmetric. Eye movements are normal and pupils are equal and reactive to light. There is no ptosis. Palate and tongue are normal and speech is clear. Funduscopic exam reveals sharp discs bilaterally. Motor exam reveals normal strength in the upper and lower extremities. There is no pronator drift. Finger taps are normal in the hands. Clock And Watch Hands Dipper strength is normal bilaterally. I did not ambulate her. She is alert and oriented and in good spirits. Memory is intact and language is fluent. LABORATORY DATA: For today notable for fingerstick glucose of 100 and other than that no new laboratory data. Urine culture came back no growth. IMPRESSION: Right vertebral artery occlusion, which is probably cardioembolic in spite of Pradaxa. An atherothrombotic event cannot be eliminated, but she did not have much in the way of atherosclerotic disease on her CT angiogram. Aspirin has been added as has atorvastatin. I believe an echocardiogram is pending. She appears to have fully recovered from her very small anterior medullary infarction. [id number]/[facility] #: [id number] LARRY
--- NOTE | 2017-07-05 05:03 | DS ---
CC: Dr. Perez DISCHARGE SUMMARY: DATE OF ADMISSION: 07/03/17 DATE OF DISCHARGE: 07/04/17 HISTORY/HOSPITAL COURSE: This 57-year-old woman presented with numbness and tingling of the face, th e left upper extremity, and the left lower extremity. She was admitted to a telemetry unit. She was seen by the neurologist. She was felt to have an acut e cerebrovascular accident. MRI scan showed that this was a nonhemorrhagic right medullary stroke. She did very well in the hospital with resolution of all her neurologic deficits. The initial consult ation was by Dr. Carrizales. Dr. Sanchez saw her in followup as well as on the day of discharge. The patient's atrial fibrillation was partly rate controlled, with exercise she did go up to as high as 140. I have increased the metoprolol from 75 b.i.d. to 100 b.i.d. on the day of discharge. She was started on aspirin 81 mg daily to be given in combination with her dabigatran. I also starte d a statin, atorvastatin 80 mg daily. She will resume her metformin at home. She will follow up with her primary care doctor for life style modification and control of her diabet es. DISCHARGE DIAGNOSES: 1. Cerebrovascular accident. 2. Atrial fibrillation. 3. Diabetes. 4. Hypertension. 5. Gastroesophageal reflux disease. 6. Cardiomyopathy. 7. Morbid obesity. DISCHARGE MEDICATIONS: 1. Acetaminophen 650 mg every 4 hours p.r.n. 2. Aspirin 81 mg daily. 3. Atorvastatin 80 mg daily at 5 p.m. 4. Metoprolol tartrate 100 mg b.i.d. 5. Nystatin topical powder t.i.d. to affected areas. 6. Metformin 500 mg daily. 7. Montelukast 10 mg daily. 8. Furosemide 20 mg on Wednesday and . 9. Dabigatran 150 mg b.i.d. 10. Digoxin 0.25 mg daily. 11. Magnesium oxide 400 mg daily. 12. Ropinirole 0.5 mg b.i.d. 13. Spironolactone 25 mg daily. 14. Losartan 25 mg daily. 15. Omeprazole 20 mg daily. 16. Ascorbic acid 500 mg daily. 17. Acetaminophen 1300 mg arthritis strength b.i.d. 18. Multivitamin with mineral daily. [id number]/[facility] #: [id number]
== END 2017-07-04 17:00 | disposition home or self-care (01) | DRG 65 ==
LOC: ED 09:26 → MEDTELE 13:41 → OBSVTOIN 07-03 16:00
PROVIDERS: ADMIT Internal Medicine; ATTEND Internal Medicine
DX: I63.211 Cerebral infarction due to unspecified occlusion or stenosis of right vertebral artery (principal); I42.9 Cardiomyopathy, unspecified; E66.01 Morbid (severe) obesity due to excess calories; I11.0 Hypertensive heart disease with heart failure; I48.91 Unspecified atrial fibrillation; I50.9 Heart failure, unspecified; Z68.43 Body mass index [BMI] 50.0-59.9, adult; E11.9 Type 2 diabetes mellitus without complications; K21.9 Gastro-esophageal reflux disease without esophagitis; E78.5 Hyperlipidemia, unspecified; N32.81 Overactive bladder; J45.909 Unspecified asthma, uncomplicated; I25.10 Atherosclerotic heart disease of native coronary artery without angina pectoris; Z79.84 Long term (current) use of oral hypoglycemic drugs; Z79.1 Long term (current) use of non-steroidal anti-inflammatories (NSAID); Z79.899 Other long term (current) drug therapy; Z79.01 Long term (current) use of anticoagulants; Z88.0 Allergy status to penicillin; Z88.8 Allergy status to other drugs, medicaments and biological substances; Z91.040 Latex allergy status; Z82.49 Family history of ischemic heart disease and other diseases of the circulatory system; Z82.3 Family history of stroke; Z83.3 Family history of diabetes mellitus
CPT/HCPCS: 36415; 70450; 70496; 70498; 70551; 71045; 80053; 80061; 81003; 81015; 83605; 84484; 85025; 85060; 85610; 85730; 86850; 86900; 86901; 87086; 93005; 93306; 96374; 99285; A9270-GY; G0378; J2405; Q9967

== ENCOUNTER 2017-09-09 18:42 | Emergency (ER) | payer MEDICARE, MEDICAID ==
[2017-09-09 20:56] VITALS: BP 117/90
--- NOTE | 2017-09-09 21:06 | UC ---
Respiratory Complaint HPI - HPI Summary HPI Summary: beginning day three of fever, cough,body aches and headaches---daughter with similar symptoms for the past 10 days - History of Current Complaint Chief Complaint: UCGeneralIllness Stated Complaint: RESPIRATORY Time Seen by Provider: 09/09/17 21:00 Hx Obtained From: Patient ?: No Onset/Duration: Sudden Onset, Lasting Days - 3, Still Present Timing: Constant Severity Initially: Moderate Severity Currently: Moderate Character: Cough: Nonproductive Aggravating Factors: Nothing Alleviating Factors: Nothing Associated Signs And Symptoms: Positive: Fever, Chills, Pleuritic Chest Pain, URI, Nasal Congestion - Allergies/Home Medications Allergies/Adverse Reactions: Allergies Allergy/AdvReac Type Severity Reaction Status Date / Time latex Allergy Itching Verified 09/09/17 20:45 meloxicam Allergy Rash Verified 09/09/17 20:45 Penicillins Allergy Rash Verified 09/09/17 20:45 Home Medications: Home Medications Ibuprofen TAB* [Motrin TAB* 400 MG] 800 mg PO Q6H PRN 09/09/17 [History Confirmed 09/09/17] PMH/Surg Hx/FS Hx/Imm Hx Previously Healthy: No Endocrine History: Dyslipidemia Cardiovascular History: Cardiac Disease, Hypertension, Atrial Fibrillation GI/ History: Gastroesophageal Reflux Other History Of: Anticoagulant Therapy - Surgical History Surgical History: Yes Surgery Procedure, Year, and Place: Cryo ablation, hysterectomy, hernia repair, cholecystectomy, knee surgery, cervical spine placement - Family History Known Family History: Positive: Cardiac Disease - mother, Hypertension - father Negative: Diabetes - Social History Occupation: Disabled Lives: With Family Alcohol Use: Rare Substance Use Type: None Smoking Status (MU): Never Smoked Tobacco - Immunization History Most Recent Influenza Vaccination: Fall 2016 Most Recent Tetanus Shot: unknown - received in past Most Recent Pneumonia Vaccination: never Review of Systems Constitutional: Fever, Chills, Fatigue Skin: Negative Eyes: Negative ENT: Negative Respiratory: Cough Cardiovascular: Negative Gastrointestinal: Negative Genitourinary: Negative Motor: Negative Neurovascular: Negative Musculoskeletal: Arthralgia, Myalgia Neurological: Headache Psychological: Negative Is Patient Immunocompromised?: No All Other Systems Reviewed And Are Negative: Yes Physical Exam Triage Information Reviewed: Yes Appearance: No Pain Distress, Ill-Appearing, Obese Vital Signs: Initial Vital Signs Temp 98.4 F 09/09/17 20:47 Pulse 60 09/09/17 20:47 Resp 16 09/09/17 20:47 BP 117/90 09/09/17 20:47 Pulse Ox 95 09/09/17 20:47 Vital Signs Reviewed: Yes Eye Exam: Normal Eyes: Positive: Conjunctiva Clear ENT Exam: Normal ENT: Positive: Normal ENT inspection, Hearing grossly normal, Pharynx normal, Nasal congestion, TMs normal, Uvula midline. Negative: Tonsillar swelling, Trismus, Muffled voice, Hoarse voice, Dental tenderness, Sinus tenderness Neck exam: Normal Neck: Positive: Supple, Nontender Respiratory Exam: Normal Respiratory: Positive: Chest non-tender, Lungs clear, Normal breath sounds, No respiratory distress, No accessory muscle use Cardiovascular Exam: Other Cardiovascular: Positive: No Murmur, Pulses Normal, Brisk Capillary Refill, Other: - irregularly irregular Musculoskeletal Exam: Normal Musculoskeletal: Positive: Strength Intact, ROM Intact, No Edema Neurological Exam: Normal Neurological: Positive: Alert, Muscle Tone Normal Psychological Exam: Normal Skin Exam: Normal UC Diagnostic Evaluation - Laboratory O2 Sat by Pulse Oximetry: 95 Diagnostic Studies Comment: Influenza A (+) - Radiology Xray Interpretation: No Acute Changes Radiology Interpretation Completed By: Radiologist Respiratory Course/Dx - Course Course Of Treatment: Robutussin, tylenol, tamiflu, follow with PCP Ramses (09/10) - Differential Dx/Diagnosis Provider Diagnoses: Influenza A, A-fib by history Discharge - Sign-Out/Discharge Documenting (check all that apply): Discharge - Discharge Plan Condition: Stable Disposition: HOME Prescriptions: Oseltamivir CAP* [Tamiflu CAP*] 75 mg PO BID #8 cap Patient Education Materials: Acetaminophen (By mouth), Guaifenesin (By mouth), Influenza (ED) Referrals: Maksim VALERO,Eagle Alvarez [Primary Care Provider] - 1 Day - Billing Disposition and Condition Condition: STABLE Disposition: HOME
[2017-09-09] MEDS ORDERED: Oseltamivir CAP* 75 MG CAP PO ONE (21:43)
--- NOTE | 2017-09-09 21:45 | RAD ---
INDICATION: Headache, cough, fever. History of asthma, diabetes, hypertension. COMPARISON: July 02, 2017 TECHNIQUE: Dual energy PA and routine lateral views of the chest were obtained. REPORT: Elevated lung volumes and both diffuse mild prominence of the interstitial markings and patchy rarefaction of the mid to upper lung zone interstitial markings. No focal pulmonary lesion, compelling alveolar consolidation, pleural effusion, pneumothorax. Unchanged cardiomegaly. The pulmonary vasculature and mediastinal contours are unremarkable. Anterior cervical fusion hardware. IMPRESSION: Stigmata of obstructive lung disease. Cardiomegaly. No acute pulmonary or cardiac process evident.
== END 2017-09-09 22:04 | disposition home or self-care (01) ==
LOC: UCCORT 18:42
DX: J10.1 Influenza due to other identified influenza virus with other respiratory manifestations (principal); I48.91 Unspecified atrial fibrillation; Z88.8 Allergy status to other drugs, medicaments and biological substances; Z88.0 Allergy status to penicillin
CPT/HCPCS: 71046; 87502; 99213; A9270-GY; G0463

== ENCOUNTER 2018-10-06 19:55 | Emergency (ER) | payer MEDICARE, MEDICAID ==
--- OUTSIDE RECORDS SUMMARY | 2018-10-06 20:03 | XMS REPORT | Continuity of Care Document ---
:1960 External Reference #:[id number] Author Name Sheila Arauz Care Team Providers Name Role Phone Jj Gardner MD Care Team Information Rn Document Improvement Specialist Unavailable Angela Martin MD Primary Care Physician Unavailable Payers Date Identification Numbers Payment Provider Subscriber Policy Number: [id number] [facility] Medicare Solutions Mylene M[employer]za Group Number: [id number] [address] [address] PayID: [id number] [place] [address] Effective: 2015 Policy Number: [id number] Medicaid Mylene M[employer]za Group Name: 1 1 [address] PayID: [id number] [place] [address] Advance Directives Description No Information Available Problems Active Problems Provider Date Persistent atrial fibrillation Deneen Perez M.D. Onset: 04/09/2015 Dyspnea Deneen Perez M.D. Onset: 04/30/2015 Primary cardiomyopathy Deneen Perez M.D. Onset: 05/15/2015 Morbid obesity Deneen Perez M.D. Onset: 05/15/2015 Chronic combined systolic and diastolic Deneen Perez M.D. Onset: 05/15/2015 heart failure Persistent atrial fibrillation Christophe Howard DO [facility] Onset: 10/08/2015 Chronic atrial fibrillation Deneen Perez M.D. Onset: 01/09/2016 Family History Date Family Member(s) Observation Comments Father Emphysema Father Diabetes Father Hypertension Father Heart Disease Father Stroke Mother Diabetes Mother Hypertension Mother Heart Disease First Sister Heart Disease "heart surgery" age: 50's Social History Type Date Description Comments Sex Unknown Marital Status Single Lives With Daughter Occupation Disabled Tobacco Use Start: Unknown Never Smoked Cigarettes Smoking Status Reviewed: 09/30/18 Never Smoked Cigarettes ETOH Use Occasionally consumes alcohol Tobacco Use Start: Unknown Patient has never smoked Recreational Drug Use Denies Drug Use Exercise Type/Frequency Does not exercise Allergies, Adverse Reactions, Alerts Active Allergies Reaction Severity Comments Date Penicillin hives 04/09/2015 Mobic rash 04/09/2015 Latex itch per patient 06/02/2016 Medications Active Medications SIG Qnty Indications Ordering Date Provider Metoprolol Tartrate take 1 by mouth Soniya Acosta, 09/21/2017 100mg twice daily N.P. Tablets Metformin HCL 1 by mouth daily Angela Martin, 08/25/2016 500mg MD Tablets Pradaxa 1 cap by mouth 180caps I48.1 Deneen Perez, 04/09/2015 150mg Capsules twice a day M.D. Aspercreme Nighttime apply at night as Unknown 10% needed Lotion Flonase Allergy Relief 2 puffs each nare Unknown every in the 50mcg/Act Suspension morning Gabapentin 1 cap po tid Unknown 100mg Capsules Proair HFA 2 puffs by mouth Unknown 108(90Base) every 4 hours as mcg/Act Aerosol needed Atorvastatin Calcium 1 by mouth every Unknown 80mg day Tablets Ropinirole HCL take 1 tablet by Unknown 0.5mg mouth every night Tablets at bedtime Arthritis Pain 4 tabs daily Unknown 650mg Tablets ER Ibuprofen 200 2 tabs daily as Unknown 200mg needed Tablets Aspirin 1 by mouth every Unknown 81mg Tablets DR day Albuterol Sulfate 1 vial via Unknown nebulizer every 4 (2.5mg/3ML) 0.083% hours as needed Nebulizer Spironolactone 1 by mouth every 90tabs Deneen Perez, 25mg day M.D. Tablets Magnesium Oxide 1 by mouth twice 180caps Deneen Perez, 400mg a day. M.D. Capsules Digoxin 1 by mouth every 90tabs Deneen Perez, 250mcg Tablets day M.D. Women One Daily 1 by mouth every Unknown Capsules day Omeprazole 1 by mouth bid Angela Martin, 20mg Capsules MD DR Fernández 1 tab by mouth 3 90tabs Deneen Neumannsher, 20mg Tablets x week. M.D. Flovent HFA inhale two puffs Unknown 220mcg/Act by mouth twice a Aerosol day Singulair 1 by mouth every Unknown 10mg Tablets day Nasonex 1 spray belen each Unknown 50mcg/Act side every day as Suspension needed Tylenol Arthritis Pain 2 by mouth bid Unknown 650mg Tablets ER History Medications Metoprolol Succinate ER 1 by mouth 180tabs I48.2 Deneen Ana, 11/24/2016 - 25mg twice a day M.D. 09/21/2017 Tablets ER 24HR with 50 mg tablet, total of 75 mg twice daily. (Not taking) Metoprolol Succinate ER 1 tablet by 180tabs Deneen Perez, 11/26/2015 - 50mg mouth twice M.D. 09/21/2017 Tablets ER 24HR daily (Not taking) Nystatin Apply to 30gm B37.2 Deneen Neumannsher, 08/23/2015 - [id number]/GM Cream affected areas M.D. 10/07/2015 bid Cozaar 1 by mouth 90tabs I50.42 Deneen Neumannsher, 06/28/2015 - 25mg Tablets every day M.D. 08/22/2015 Aldactone 1 1/2 tabs by 90tabs I48.1 Deneen Perez, 04/09/2015 - 25mg Tablets mouth every day M.D. 05/14/2015 Montelukast Sodium 1 by mouth Unknown - 10mg Tablets every day 07/29/2018 Neurontin 1 Tab 3 X Daily Unknown - Capsules 03/16/2018 Muscle & Joint ( Menthol apply topically Unknown - 2.5%) to affected 09/08/2017 Gel area once daily as needed Losartan Potassium 1 by mouth 90tabs I50.42 Deneen Perez, - 25mg Tablets every day M.D. 03/17/2018 Antacid prn Unknown - 10/08/2017 Amiodarone HCL 1 by mouth 180tabs Deneen Perez, - 200mg Tablets twice a day M.D. 09/17/2015 Metoprolol Succinate ER 1 tablet twice 90tabs Deneen Perez, - 25mg a day M.D. 11/26/2015 Tablets ER 24HR Lisinopril 1 by mouth 90tabs I50.42 Deneen Perez, - 2.5mg Tablets every day M.D. 06/28/2015 Benefiber Drink Mix as directed Unknown - Packet daily. 11/23/2016 Metoprolol Tartrate 2 by mouth once Unknown - 50mg a day 05/14/2015 Tablets Claritin by mouth every Unknown - 10mg Tablets day as needed 09/16/2015 Gemfibrozil 1 by mouth Unknown - 600mg Tablets twice a day 09/16/2015 Hydrochlorothiazide 1 by mouth Unknown - 50mg every day 05/14/2015 Tablets Losartan Potassium 1 by mouth Unknown - 25mg Tablets every day 05/14/2015 Montelukast Sodium 1 by mouth Unknown - 10mg Tablets every day 04/08/2015 Gabapentin 1 by mouth Unknown - 300mg Capsules twice a day 04/08/2015 Proair HFA 2 puffs by Unknown - 108(90Base) mcg/Act mouth every 4 09/14/2017 Aerosol hours as needed Medications Administered in Office Medication SIG Qnty Indications Ordering Provider Date Inj, Regadenoson, 0.1 MG Christophe Howard DO [facility] 04/30/2015 Injection Inj, Regadenoson, 0.1 MG Deneen Perez M.D. 04/30/2015 Injection Technetium TC 99M Christophe Howard DO [facility] 04/30/2015 Tetrofosmin, Per Unit Dose Up To 40 Millicuries Injection Technetium TC 99M Deneen Perez M.D. 04/30/2015 Tetrofosmin, Per Unit Dose Up To 40 Millicuries Injection Immunizations Description No Information Available Vital Signs Date Vital Result Comment 09/30/2018 3:56pm Height 66 inches 5'6" Weight 364.00 lb with shoes Heart Rate 78 /min BP Systolic Sitting 130 mmHg Rue lg cuff BP Diastolic Sitting 78 mmHg Rue lg cuff BP Systolic Standing 132 mmHg Rue lg cuff BP Diastolic Standing 80 mmHg Rue lg cuff Respiratory Rate 18 /min BMI (Body Mass Index) 58.7 kg/m2 07/29/2018 3:50pm Height 66 inches 5'6" Weight 366.00 lb no shoes Heart Rate 80 /min BP Systolic Sitting 138 mmHg lue reg cuff BP Diastolic Sitting 78 mmHg lue reg cuff BP Systolic Standing 140 mmHg lue reg cuff BP Diastolic Standing 80 mmHg lue reg cuff Respiratory Rate 18 /min BMI (Body Mass Index) 59.1 kg/m2 Ejection Fraction 50-55% echo. 07/04/17 03/17/2018 3:27pm Height 66 inches 5'6" Heart Rate 80 /min BP Systolic Sitting 140 mmHg lue lg cuff BP Diastolic Sitting 85 mmHg lue lg cuff BP Systolic Standing 140 mmHg BP Diastolic Standing 70 mmHg Respiratory Rate 18 /min Ejection Fraction 50-55% 07/04/2017 echo 11/08/2017 2:28pm Height 66 inches 5'6" Weight 354.00 lb w/ shoes Heart Rate 68 /min BP Systolic Sitting 106 mmHg Rue lg cuff BP Diastolic Sitting 70 mmHg Rue lg cuff BP Systolic Standing 100 mmHg Rue BP Diastolic Standing 66 mmHg Rue Respiratory Rate 16 /min BMI (Body Mass Index) 57.1 kg/m2 Ejection Fraction 50-55% as of 07/04/17 echo 09/21/2017 2:41pm Height 66 inches 5'6" Weight 345.50 lb No shoes Heart Rate 66 /min BP Systolic Sitting 100 mmHg Lue lrg cuff BP Diastolic Sitting 64 mmHg Lue lrg cuff Respiratory Rate 18 /min BMI (Body Mass Index) 55.8 kg/m2 Ejection Fraction 50-55% 07/04/2017-Echo 01/01/2017 9:46am Height 66 inches 5'6" Weight 341.00 lb with shoes Heart Rate 71 /min irreg BP Systolic Sitting 120 mmHg Rue lg cuff BP Diastolic Sitting 100 mmHg Rue lg cuff BP Systolic Standing 118 mmHg Rue lg cuff BP Diastolic Standing 84 mmHg Rue lg cuff Respiratory Rate 17 /min BMI (Body Mass Index) 55.0 kg/m2 Ejection Fraction 45-50% date 09/17/16 ECHO 11/24/2016 2:55pm Height 66 inches 5'6" Weight 345.00 lb with shoes Heart Rate 88 /min BP Systolic Sitting 120 mmHg Rue lg cuff BP Diastolic Sitting 70 mmHg Rue lg cuff BP Systolic Standing 118 mmHg Rue lg cuff BP Diastolic Standing 74 mmHg Rue lg cuff BMI (Body Mass Index) 55.7 kg/m2 06/02/2016 10:14am Height 66 inches 5'6" Weight 341.00 lb with shoes Heart Rate 96 /min BP Systolic Sitting 136 mmHg Ra lrg cuff BP Diastolic Sitting 96 mmHg Ra lrg cuff BP Systolic Standing 132 mmHg Ra lrg cuff BP Diastolic Standing 82 mmHg Ra lrg cuff BMI (Body Mass Index) 55.0 kg/m2 Ejection Fraction 45% - 50% echo 08/27/15 01/09/2016 3:27pm Height 66 inches 5'6" Weight 328.00 lb w/o shoes Heart Rate 86 /min irreg BP Systolic Sitting 100 mmHg Lue, lg cuff BP Diastolic Sitting 70 mmHg Lue, lg cuff BP Systolic Standing 104 mmHg Lue BP Diastolic Standing 74 mmHg Lue Respiratory Rate 16 /min BMI (Body Mass Index) 52.9 kg/m2 Ejection Fraction 45-50% as of 08/27/15 echo 10/08/2015 10:08am Height 66 inches 5'6" Weight 323.00 lb Heart Rate 70 /min BP Systolic 138 mmHg right arm, large cuff BP Diastolic 72 mmHg right arm, large cuff BP Systolic Sitting 130 mmHg left arm, large cuff BP Diastolic Sitting 78 mmHg left arm, large cuff Body Temperature 97.3 F BMI (Body Mass Index) 52.1 kg/m2 Ejection Fraction 45-50% 08/27/15 09/17/2015 10:16am Height 66 inches 5'6" Weight 321.56 lb Heart Rate 82 /min BP Systolic 132 mmHg right arm, large cuff BP Diastolic 82 mmHg right arm, large cuff BP Systolic Sitting 128 mmHg left arm, large cuff BP Diastolic Sitting 80 mmHg left arm, large cuff BP Systolic Standing 128 mmHg left arm, large cuff BP Diastolic Standing 78 mmHg left arm, large cuff Body Temperature 97.5 F BMI (Body Mass Index) 51.9 kg/m2 Ejection Fraction 45-50% 08/27/15 08/23/2015 10:38am Height 66 inches 5'6" Weight 317.00 lb Heart Rate 74 /min BP Systolic Sitting 120 mmHg left arm, large cuff BP Diastolic Sitting 76 mmHg left arm, large cuff BP Systolic Standing 120 mmHg left arm, large cuff BP Diastolic Standing 78 mmHg left arm, large cuff Respiratory Rate 20 /min BMI (Body Mass Index) 51.2 kg/m2 Ejection Fraction 35-40% 07/05/15 06/28/2015 10:39am Height 66 inches 5'6" Weight 321.00 lb no shoes Heart Rate 80 /min BP Systolic Sitting 120 mmHg left arm, large cuff BP Diastolic Sitting 82 mmHg left arm, large cuff BP Systolic Standing 118 mmHg left arm, large cuff BP Diastolic Standing 80 mmHg left arm, large cuff Respiratory Rate 20 /min BMI (Body Mass Index) 51.8 kg/m2 Ejection Fraction 20-25% 05/15/15 05/15/2015 12:37pm Height 66 inches 5'6" Weight 326.00 lb without shoes Heart Rate 78 /min BP Systolic 120 mmHg Large cuff. L arm BP Diastolic 70 mmHg Large cuff. L arm BP Systolic Sitting 114 mmHg BP Diastolic Sitting 70 mmHg Respiratory Rate 18 /min BMI (Body Mass Index) 52.6 kg/m2 Ejection Fraction 20% 05/03/15 04/30/2015 11:45am Height 66 inches 5'6" Weight 366.00 lb w/o shoes Heart Rate 180 /min irreg BP Systolic Sitting 104 mmHg Rue, lg cuff BP Diastolic Sitting 74 mmHg Rue, lg cuff BP Systolic Standing 106 mmHg Rue BP Diastolic Standing 70 mmHg Rue O2 % BldC Oximetry 95 % on Ra BMI (Body Mass Index) 59.1 kg/m2 04/09/2015 9:29am Height 66 inches 5'6" Weight 347.00 lb Heart Rate 84 /min BP Systolic 160 mmHg right arm, large cuff BP Diastolic 90 mmHg right arm, large cuff BP Systolic Sitting 160 mmHg left arm, large cuff BP Diastolic Sitting 96 mmHg left arm, large cuff BP Systolic Standing 160 mmHg left arm, large cuff BP Diastolic Standing 88 mmHg left arm, large cuff Respiratory Rate 16 /min BMI (Body Mass Index) 56.0 kg/m2 Results Test Date Facility Test Result H/L Range Note Laboratory test 04/14/2018 [facility] Magnesium 1.7 mg/dL Low 1.9-2.[address] [place] [address] [phone] Basic Metabolic 04/14/2018 [facility] Sodium 140 mmol/L N 135- 145 Panel [address] [place] [address] [phone] Potassium 4.3 mmol/L N 3.5-5.0 Chloride 102 mmol/L N 101-111 Co2 Carbon Dioxide 30 mmol/L N 22-32 Anion Gap 8 mmol/L N 2-11 Glucose 144 mg/dL High 70-100 Blood Urea Nitrogen 23 mg/dL N 6-24 Creatinine 0.67 mg/dL N 0.51-0.95 BUN/Creatinine Ratio 34.3 High 8-20 Calcium 9.4 mg/dL N 8.6-10.3 Egfr Non- 89.8 >60 Egfr 108.6 >60 1 Laboratory test 04/14/2018 [facility] Digoxin 0.8 ng/ml N 0.8- 2.0 finding [address] [place] [address] [phone] Laboratory test 03/17/2018 [facility] Magnesium <pending> finding [address] [place] [address] [phone] Digoxin <pending> Comp Metabolic Panel 01/28/2018 [facility] Sodium 141 mmol/L N 135-145 [address] [place] [address] [phone] Potassium 4.6 mmol/L N 3.5-5.0 Chloride 101 mmol/L N 101-111 Co2 Carbon Dioxide 30 mmol/L N 22-32 Anion Gap 10 mmol/L N 2-11 Glucose 138 mg/dL High 70-100 Blood Urea Nitrogen 19 mg/dL N 6-24 Creatinine 0.60 mg/dL N 0.51-0.95 BUN/Creatinine Ratio 31.7 High 8-20 Calcium 9.4 mg/dL N 8.6-10.3 Total Protein 6.2 g/dL Low 6.4-8.9 Albumin 4.0 g/dL N 3.2-5.2 Globulin 2.2 g/dL N 2-4 Albumin/Globulin Ratio 1.8 N 1-3 Total Bilirubin 0.60 mg/dL N 0.2-1.0 Alkaline Phosphatase 59 U/L N 34-104 Alt 18 U/L N 7-52 Ast 14 U/L N 13-39 Egfr Non- 102.3 >60 Egfr 123.8 >60 2 Laboratory test 01/28/2018 [facility] B-Type 56 pg/mL [address] [place] [address] Peptide BNP [phone] Comp Metabolic 10/14/2017 [facility] Sodium 139 mmol/L N 139- [address] [place] [address] [phone] Potassium 4.2 mmol/L N 3.5-5.0 Chloride 102 mmol/L N 101-111 Co2 Carbon Dioxide 27 mmol/L N 22-32 Anion Gap 10 mmol/L N 2-11 Glucose 136 mg/dL High 70-100 Blood Urea Nitrogen 17 mg/dL N 6-24 Creatinine 0.60 mg/dL N 0.51-0.95 BUN/Creatinine Ratio 28.3 High 8-20 Calcium 8.9 mg/dL N 8.6-10.3 Total Protein 6.1 g/dL Low 6.4-8.9 Albumin 3.8 g/dL N 3.2-5.2 Globulin 2.3 g/dL N 2-4 Albumin/Globulin Ratio 1.7 N 1-3 Total Bilirubin 0.70 mg/dL N 0.2-1.0 Alkaline Phosphatase 55 U/L N 34-104 Alt 16 U/L N 7-52 Ast 14 U/L N 13-39 Egfr Non- 102.3 >60 Egfr 131.6 >60 4 Lipid Profile 10/14/2017 [facility] Triglycerides 218 mg/dL 5 (Trig/Chol/HDL) [address] [place] [address] [phone] Cholesterol 120 mg/dL 6 HDL Cholesterol 32.5 mg/dL 7 LDL Cholesterol 44 mg/dL 8 Laboratory test 10/14/2017 [facility] Magnesium 1.5 mg/dL Low 1.9-2.[address] [place] [address] [phone] Creatine Kinase(CK) 26 U/L N 10-223 Digoxin 0.8 ng/ml N 0.8-2.0 B-Type Natriuretic Peptide BNP 43 pg/mL 9 Lipid Panel - [facility] 09/21/2017 [facility] Creatine <pending> [address] Kinase(CK) [place] [address] [phone] Laboratory test 09/21/2017 [facility] Magnesium <pending> finding [address] [place] [address] [phone] Digoxin <pending> B-Type Natriuretic Peptide BNP <pending> Laboratory test 02/14/2016 [facility] Magnesium 1.7 mg/dL Low 1.9-2.7 10 finding [address] [place] [address] [phone] Basic Metabolic 02/14/2016 [facility] Sodium 138 mmol/L N 133- 145 Panel [address] [place] [address] [phone] Potassium 4.0 mmol/L N 3.5-5.0 Chloride 99 mmol/L Low 101-111 Co2 Carbon Dioxide 29 mmol/L N 22-32 Anion Gap 10 mmol/L N 2-11 Glucose 116 mg/dL High 70-100 Blood Urea Nitrogen 20 mg/dL N 6-24 Creatinine 0.71 mg/dL N 0.51-0.95 BUN/Creatinine Ratio 28.2 High 8-20 Calcium 9.1 mg/dL N 8.6-10.3 Egfr Non- 84.8 N >60 Egfr 109.1 N >60 11 Laboratory test 02/14/2016 [facility] Digoxin 0.7 ng/ml Low 0.8-2.0 12 finding [address] [place] [address] [phone] Basic Metabolic 08/23/2015 [facility] Sodium 137 mmol/L N 133- 145 Panel [address] [place] [address] [phone] Potassium 4.1 mmol/L N 3.5-5.0 Chloride 100 mmol/L Low 101-111 Co2 Carbon Dioxide 26 mmol/L N 22-32 Anion Gap 11 mmol/L N 2-11 Glucose 130 mg/dL High 70-100 Blood Urea Nitrogen 16 mg/dL N 6-24 Creatinine 0.76 mg/dL N 0.51-0.95 BUN/Creatinine Ratio 21.1 High 8-20 Calcium 9.4 mg/dL N 8.6-10.3 Egfr Non- 78.4 N >60 Egfr 100.9 N >60 13 Laboratory test 08/23/2015 [facility] Magnesium 1.5 mg/dL Low 1.9-2.7 14 finding [address] [place] [address] [phone] B-Type Natriuretic Peptide BNP 57 pg/mL N 15 Laboratory test 06/13/2015 [facility] Magnesium 1.7 mg/dL Low 1.9-2.7 16, 17 finding [address] [place] [address] [phone] Basic Metabolic 06/13/2015 [facility] Sodium 137 mmol/L N 133- 145 Panel [address] [place] [address] [phone] Potassium 4.4 mmol/L N 3.5-5.0 Chloride 101 mmol/L N 101-111 Co2 Carbon Dioxide 27 mmol/L N 22-32 Anion Gap 9 mmol/L N 2-11 Glucose 110 mg/dL High 70-100 Blood Urea Nitrogen 17 mg/dL N 6-24 Creatinine 0.60 mg/dL N 0.51-0.95 BUN/Creatinine Ratio 28.3 High 8-20 Calcium 9.9 mg/dL N 8.6-10.3 Egfr Non- 103.0 N >60 Egfr 132.5 N >60 18 Laboratory test finding 05/01/2015 [facility] Ast (Sgot) 30 U/L N 13-39 [address] [place] [address] [phone] Magnesium 1.7 mg/dL Low 1.9-2.7 TSH (Thyroid Stim Horm) 3.11 ?IU/mL N 0.34-5.60 B-Type Natriuretic Peptide BNP 454 pg/mL High 19 Basic Metabolic Panel 05/01/2015 [facility] Sodium 139 mmol/L N 133-145 [address] [place] [address] [phone] Potassium 3.8 mmol/L N 3.5-5.0 Chloride 100 mmol/L Low 101-111 Co2 Carbon Dioxide 28 mmol/L N 22-32 Anion Gap 11 mmol/L N 2-11 Glucose 118 mg/dL High 70-100 Blood Urea Nitrogen 14 mg/dL N 6-24 Creatinine 0.93 mg/dL N 0.51-0.95 BUN/Creatinine Ratio 15.1 N 8-20 Calcium 9.8 mg/dL N 8.6-10.3 Egfr Non- 62.1 N >60 Egfr 79.9 N >60 20 Laboratory test 05/01/2015 [facility] Point of Care 133 mg/dL High 74-106 [address] [place] [address] [phone] 1 Because ethnic data is not always readily available, this report includes an eGFR for both -Americans and non- Americans. The National Kidney Disease Education Program (NKDEP) does not endorse the use of the MDRD equation for patients that are not between the ages of 18 and 70, are , have extremes of body size, muscle mass, or nutritional status, or are non- or non-. According to the National Kidney Foundation, irrespective of diagnosis, the stage of the disease is based on the level of kidney function: Stage Description GFR(mL/min/1.73 m(2)) 1 Kidney damage with normal or decreased GFR 90 2 Kidney damage with mild decrease in GFR 60-89 3 Moderate decrease in GFR 30-59 4 Severe decrease in GFR 15-29 5 Kidney failure <15 (or dialysis) 2 Because ethnic data is not always readily available, this report includes an eGFR for both -Americans and non- Americans. The National Kidney Disease Education Program (NKDEP) does not endorse the use of the MDRD equation for patients that are not between the ages of 18 and 70, are , have extremes of body size, muscle mass, or nutritional status, or are non- or non-. According to the National Kidney Foundation, irrespective of diagnosis, the stage of the disease is based on the level of kidney function: Stage Description GFR(mL/min/1.73 m(2)) 1 Kidney damage with normal or decreased GFR 90 2 Kidney damage with mild decrease in GFR 60-89 3 Moderate decrease in GFR 30-59 4 Severe decrease in GFR 15-29 5 Kidney failure <15 (or dialysis) 3 >100 to <200 pg/mL: likely compensated congestive heart failure (CHF) 200 to 400 pg/mL: likely moderate CHF >400 pg/mL: likely moderate to severe CHF 4 Because ethnic data is not always readily available, this report includes an eGFR for both -Americans and non- Americans. The National Kidney Disease Education Program (NKDEP) does not endorse the use of the MDRD equation for patients that are not between the ages of 18 and 70, are , have extremes of body size, muscle mass, or nutritional status, or are non- or non-. According to the National Kidney Foundation, irrespective of diagnosis, the stage of the disease is based on the level of kidney function: Stage Description GFR(mL/min/1.73 m(2)) 1 Kidney damage with normal or decreased GFR 90 2 Kidney damage with mild decrease in GFR 60-89 3 Moderate decrease in GFR 30-59 4 Severe decrease in GFR 15-29 5 Kidney failure <15 (or dialysis) 5 Desirable: <150 Borderline High: 150-199 High: 200-499 Very High: >500 6 Desirable: <200 Borderline High: 200-239 High: >239 7 Low: <40 Desirable: 40-60 High: >60 8 Desirable: <100 Near Optimal: 100-129 Borderline High: 130-159 High: 160-189 Very High: >189 9 >100 to <200 pg/mL: likely compensated congestive heart failure (CHF) 200 to 400 pg/mL: likely moderate CHF >400 pg/mL: likely moderate to severe CHF 10 FASTING Copy Result to: ANGELA MARTIN ([id number]) 11 Because ethnic data is not always readily available, this report includes an eGFR for both -Americans and non- Americans. The National Kidney Disease Education Program (NKDEP) does not endorse the use of the MDRD equation for patients that are not between the ages of 18 and 70, are , have extremes of body size, muscle mass, or nutritional status, or are non- or non-. According to the National Kidney Foundation, irrespective of diagnosis, the stage of the disease is based on the level of kidney function: Stage Description GFR(mL/min/1.73 m(2)) 1 Kidney damage with normal or decreased GFR 90 2 Kidney damage with mild decrease in GFR 60-89 3 Moderate decrease in GFR 30-59 4 Severe decrease in GFR 15-29 5 Kidney failure <15 (or dialysis) 12 FASTING Copy Result to: ANGELA MARTIN ([id number]) 13 Because ethnic data is not always readily available, this report includes an eGFR for both -Americans and non- Americans. The National Kidney Disease Education Program (NKDEP) does not endorse the use of the MDRD equation for patients that are not between the ages of 18 and 70, are , have extremes of body size, muscle mass, or nutritional status, or are non- or non-. According to the National Kidney Foundation, irrespective of diagnosis, the stage of the disease is based on the level of kidney function: Stage Description GFR(mL/min/1.73 m(2)) 1 Kidney damage with normal or decreased GFR 90 2 Kidney damage with mild decrease in GFR 60-89 3 Moderate decrease in GFR 30-59 4 Severe decrease in GFR 15-29 5 Kidney failure <15 (or dialysis) 14 Copy Result to: ANGELA MARTIN ([id number]) 15 >100 to <200 pg/mL: likely compensated congestive heart failure (CHF) 200 to 400 pg/mL: likely moderate CHF >400 pg/mL: likely moderate to severe CHF 16 CALL RESULTS TO [phone] 17 CALL RESULTS TO 4591 18 Because ethnic data is not always readily available, this report includes an eGFR for both -Americans and non- Americans. The National Kidney Disease Education Program (NKDEP) does not endorse the use of the MDRD equation for patients that are not between the ages of 18 and 70, are , have extremes of body size, muscle mass, or nutritional status, or are non- or non-. According to the National Kidney Foundation, irrespective of diagnosis, the stage of the disease is based on the level of kidney function: Stage Description GFR(mL/min/1.73 m(2)) 1 Kidney damage with normal or decreased GFR 90 2 Kidney damage with mild decrease in GFR 60-89 3 Moderate decrease in GFR 30-59 4 Severe decrease in GFR 15-29 5 Kidney failure <15 (or dialysis) 19 >100 to <200 pg/mL: likely compensated congestive heart failure (CHF) 200 to 400 pg/mL: likely moderate CHF >400 pg/mL: likely moderate to severe CHF 20 Because ethnic data is not always readily available, this report includes an eGFR for both -Americans and non- Americans. The National Kidney Disease Education Program (NKDEP) does not endorse the use of the MDRD equation for patients that are not between the ages of 18 and 70, are , have extremes of body size, muscle mass, or nutritional status, or are non- or non-. According to the National Kidney Foundation, irrespective of diagnosis, the stage of the disease is based on the level of kidney function: Stage Description GFR(mL/min/1.73 m(2)) 1 Kidney damage with normal or decreased GFR 90 2 Kidney damage with mild decrease in GFR 60-89 3 Moderate decrease in GFR 30-59 4 Severe decrease in GFR 15-29 5 Kidney failure <15 (or dialysis) 21 [employer]: [id number] ALEX VALENCIA Procedures Date Code Description Status 08/12/2018 08165 ECHO Transthoracic, Real-Time 2D With Doppler And Color Completed Flow 08/12/2018 06838 ECHO Transthoracic, Real-Time 2D With Doppler And Color Completed Flow 07/29/2018 60154 EKG Tracing & Interpretation Completed 10/03/2017 31551 Holter Monitor Review (24 hr)dr review & interp only Completed 09/29/2017 43973 ECG Monitor/Recording W/Visual Superimposition Scanning Completed 09/21/2017 21386 EKG Tracing & Interpretation Completed 07/04/2017 35495 ECHO Transthorasic Realtime 2D W Doppler & Color Flow Hosp Completed 09/17/2016 72787 ECHO Transthoracic, Real-Time 2D With Doppler And Color Completed Flow 06/02/2016 16190 EKG Tracing & Interpretation Completed 08/27/2015 39654 ECHO Transthorasic Realtime 2D W Doppler & Color Flow Hosp Completed 07/05/2015 74505 ECHO Transthorasic Realtime 2D W Doppler & Color Flow Hosp Completed 06/28/2015 87953 EKG Tracing & Interpretation Completed 06/13/2015 89779 Cardioversion Completed 05/03/2015 25017 RT & lt Cath W/Injx HRT Art&L Ventr Img S&I Completed 05/02/2015 70497 EKG, Interpretation Only Completed 05/01/2015 41005 Color Flow Doppler/Interp & Reprt Completed 05/01/2015 65278 Pulse Wave/Continuous-Interp.RPT Completed 05/01/2015 57858 Echocardiography, Transesophageal, Real Time W/Image 2D Completed W/W/O M-M 05/01/2015 57791 EKG, Interpretation Only Completed 05/01/2015 71065 Cardioversion Completed 04/30/2015 18474 Stress Test Completed 04/30/2015 50706 EKG Tracing & Interpretation Completed 04/30/2015 83279 Myocardial Perfusion Imaging Tomographic (Spect) Multiple Completed Studies 04/30/2015 68801 Myocardial Perfusion Imaging Tomographic (Spect) Multiple Completed Studies 04/09/2015 90257 EKG, Interpretation Only Completed 04/09/2015 08098 EKG Tracing & Interpretation Completed Encounters Type Date Location Provider Dx Diagnosis Office Visit 07/29/2018 [facility] Soniya Acosta, I48.91 Unspecified atrial 3:30p Of Director Medical Science N.P. fibrillation I10 Essential (primary) hypertension E78.5 Hyperlipidemia, unspecified R06.02 Shortness of breath I42.9 Cardiomyopathy, unspecified Office Visit 03/17/2018 3:30p [facility] Soniya SSuly R60.9 Edema, unspecified Of Director Medical Science Dave, N.P. I48.91 Unspecified atrial fibrillation I10 Essential (primary) hypertension E78.5 Hyperlipidemia, unspecified Office Visit 11/08/2017 2:40p [facility] Deneen Perez, I48.2 Chronic atrial Of [employer] Science M.D. fibrillation R60.9 Edema, unspecified R06.02 Shortness of breath I63.9 Cerebral infarction, unspecified E83.42 Hypomagnesemia Office Visit 09/21/2017 3:30p [facility] Soniya S. I10 Essential ( primary) Of Director Medical Science Dave, N.P. hypertension I48.2 Chronic atrial fibrillation E66.01 Morbid (severe) obesity due to excess calories E78.5 Hyperlipidemia, unspecified R60.9 Edema, unspecified R06.02 Shortness of breath Office Visit 07/04/2017 2:06p [facility] I65.09 [facility] Assoc,german Tai M.D. stenosis of Hospitalists unspecified vertebral artery I63.50 Cereb infrc due to unsp occls or stenos of unsp cereb artery I48.1 Persistent atrial fibrillation E66.01 Morbid (severe) obesity due to excess calories Office Visit 07/04/2017 [facility] Angela Aldridge I63.211 Cerebral 3:37p [facility] infrc due to unsp occls or stenosis of r verteb art I10 Essential (primary) hypertension I48.91 Unspecified atrial fibrillation E66.01 Morbid (severe) obesity due to excess calories Z79.01 intermediate (current) use of anticoagulants Office Visit 07/03/2017 2:05p [facility] Vu I65.09 Occlusion and Assoc,german Tai M.D. stenosis of Hospitalists unspecified vertebral artery I63.50 Cereb infrc due to unsp occls or stenos of unsp cereb artery I48.1 Persistent atrial fibrillation E66.01 Morbid (severe) obesity due to excess calories Office Visit 07/03/2017 [facility] Angela Aldridge I63.211 Cerebral 3:23p Clinic Ru[facility] Sanchez infrc due to unsp occls or stenosis of r verteb art I10 Essential (primary) hypertension I48.91 Unspecified atrial fibrillation E66.01 Morbid (severe) obesity due to excess calories Z79.01 long term care phlebotomist (current) use of anticoagulants Office Visit 07/02/2017 [facility] Arielle I65.09 Occlusion and 2:03p Assoc,pc Shaheed Stein, stenosis of Hospitalists ACCESS REPRESENTATIVE unspecified vertebral artery I63.50 Cereb infrc due to unsp occls or stenos of unsp cereb artery I48.1 Persistent atrial fibrillation E66.01 Morbid (severe) obesity due to excess calories Office Visit 07/02/2017 [facility] Анна Carrizales, I63.9 Cerebral 3:21p Clinic MD infarction, unspecified R29.702 Nihss score 2 I10 Essential (primary) hypertension I48.91 Unspecified atrial fibrillation E66.01 Morbid (severe) obesity due to excess calories Z79.01 intermediate (current) use of anticoagulants Office Visit 01/01/2017 10:00a [facility] Gregoria Nash, I48.2 Chronic atrial Of [facility] [place] fibrillation R06.02 Shortness of breath E66.01 Morbid (severe) obesity due to excess calories Office Visit 11/24/2016 2:45p [facility] Deneen Perez, 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 fibrillation I50.42 Chronic combined systolic and diastolic hrt fail E66.01 Morbid (severe) obesity due to excess calories M15.9 Polyosteoarthritis, unspecified Office Visit 10/08/2015 10:30a Kenrick Aldridge I48.1 Persistent atrial Cardiology Howard, DO fibrillation FAC E66.01 Morbid (severe) obesity due to excess calories I42.9 Cardiomyopathy, unspecified R60.0 Localized edema Z68.43 Body mass index (BMI) 50-59.9 , adult Office Visit 09/17/2015 10:30a Kenrick Perez I48.1 Persistent atrial Cardiology M.D. fibrillation I42.0 Dilated cardiomyopathy E66.01 Morbid (severe) obesity due to excess calories G47.9 Sleep disorder, unspecified Z68.43 Body mass index (BMI) 50-59.9 , adult Office Visit 08/23/2015 11:00a [facility] Deneen Perez I48.1 Persistent atrial Of Director Medical Science AT [facility] M.D. fibrillation I42.0 Dilated cardiomyopathy I50.42 Chronic combined systolic and diastolic hrt fail B37.2 Candidiasis of skin and nail Office Visit 06/28/2015 10:40a [facility] Deneen Perez I48.1 Persistent atrial Of Director Medical Science AT [facility].D. fibrillation E66.01 Morbid (severe) obesity due to excess calories I42.0 Dilated cardiomyopathy R05 Cough I50.42 Chronic combined systolic and diastolic hrt fail Office Visit 05/15/2015 [facility] Deneen Perez I42.0 Dilated 1:00p Cardiology Of M.D. cardiomyopathy Director Medical Science I48.1 Persistent atrial fibrillation E66.01 Morbid (severe) obesity due to excess calories I50.42 Chronic combined systolic and diastolic hrt fail R60.0 Localized edema Office Visit 05/07/2015 [facility] Elva I42.9 Cardiomyopathy, 9:07a Assgerman rubin, ACCESS REPRESENTATIVE unspecified Hospitalists I48.91 Unspecified atrial fibrillation Q21.1 Atrial septal defect E66.01 Morbid (severe) obesity due to excess calories Office Visit 05/06/2015 [facility] Elva I42.9 Cardiomyopathy, 9:06a Assgerman rubin, ACCESS REPRESENTATIVE unspecified Hospitalists I48.91 Unspecified atrial fibrillation Q21.1 Atrial septal defect E66.01 Morbid (severe) obesity due to excess calories Office Visit 05/05/2015 [facility] Elva I42.9 Cardiomyopathy, 9:06a Assgerman rubin, ACCESS REPRESENTATIVE unspecified Hospitalists I48.91 Unspecified atrial fibrillation Q21.1 Atrial septal defect E66.01 Morbid (severe) obesity due to excess calories Office Visit 05/04/2015 9:46a [facility] Pablo FSuly I50.9 Heart failure, Collin Amos. unspecified I48.91 Unspecified atrial fibrillation I42.9 Cardiomyopathy, unspecified Office Visit 05/04/2015 [facility] Cortez I42.9 Cardiomyopathy, 9:05a Assgerman rubin, N.P. unspecified Hospitalists I48.91 Unspecified atrial fibrillation Q21.1 Atrial septal defect E66.01 Morbid (severe) obesity due to excess calories Office Visit 05/03/2015 [facility] Pablo FSuly I48.1 Persistent atrial 9:46a Ruiz Amos fibrillation Office Visit 05/03/2015 [facility] Soniya S. I42.9 Cardiomyopathy, 9:04a german Lozano, N.P. unspecified Hospitalists Q21.1 Atrial septal defect I48.91 Unspecified atrial fibrillation E66.01 Morbid (severe) obesity due to excess calories Office Visit 05/02/2015 [facility] Soniya S. I42.9 Cardiomyopathy, 9:03a Assscottie,pc Dave, N.P. unspecified Hospitalists E66.01 Morbid (severe) obesity due to excess calories I48.91 Unspecified atrial fibrillation Q21.1 Atrial septal defect Office Visit 05/02/2015 2:15p [facility] Deneen Perez, I48.1 Persistent atrial Of Fe Melchor fibrillation I42.9 Cardiomyopathy, unspecified Q21.1 Atrial septal defect I34.2 Nonrheumatic mitral (valve) stenosis Office Visit 05/01/2015 [facility] I42.9 Cardiomyopathy, 9:03a german Lozano, ACCESS REPRESENTATIVE unspecified Hospitalists E66.01 Morbid (severe) obesity due to excess calories I48.91 Unspecified atrial fibrillation Q21.1 Atrial septal defect Office Visit 04/30/2015 11:30a [facility] Deneen Perez, I48.1 Persistent atrial Of [facility] M.D. fibrillation R06.02 Shortness of breath R60.0 Localized edema R07.9 Chest pain, unspecified Office Visit 04/09/2015 9:45a [place] Deneen Perez, I48.1 Persistent atrial Cardiology M.D. fibrillation R06.02 Shortness of breath R06.01 Orthopnea R07.9 Chest pain, unspecified I10 Essential (primary) hypertension Plan of Treatment Future Appointment(s):04/06/2019 4:00 pm - Deneen Perez M.D. at [facility]09/30/2018 - Deneen Perez M.D.I48.2 Chronic atrial fibrillationComments:Continue Pradaxa for stroke prevention and Metoprolol and digoxen for rate control.Follow up:6 months with ECG.I42.8 Other cardiomyopathiesComments:EF 50%, low normal. Nominal leaks across your valves, all good news.Recommendations:Your recent echo and labs look excellent regarding fluid control. Continue meds as anexsoA81 Essential (primary) hypertensionComments:Well controlledRecommendations:Continue Lasix, spironolactone and metoprolol.R60.0 Localized edemaComments:Continue with improved diet and OK to continue fluids as your are.
[2018-10-06 20:20] VITALS: BP 115/59
--- NOTE | 2018-10-06 20:47 | UC ---
Respiratory Complaint HPI - HPI Summary HPI Summary: Diagnosed wtih sinus infection 2 weeks ago. Now has chest congestion with occasional productive cough. Body aches. Denies fever. - History of Current Complaint Chief Complaint: UCGeneralIllness Stated Complaint: COUGH/HEADACHE/BODY ACHES Time Seen by Provider: 10/06/18 20:46 Pain Intensity: 8 - Allergies/Home Medications Allergies/Adverse Reactions: Allergies Allergy/AdvReac Type Severity Reaction Status Date / Time latex Allergy Itching Verified 10/06/18 20:15 meloxicam Allergy Rash Verified 10/06/18 20:15 Penicillins Allergy Rash Verified 10/06/18 20:15 Home Medications: Home Medications Acetaminophen TAB* [Tylenol TAB*] 650 mg PO BID 10/06/18 [History Confirmed 02/16] Albuterol 2.5MG/3ML (0.083%)* [Ventolin 2.5 MG/3 ML NEB.DEN*] 2.5 mg INH Q4H PRN 10/06/18 [History Confirmed 10/06/18] Albuterol inh POWDER (NF) [Proair Respiclick] 2 puff INH Q4HR PRN 10/06/18 [ History Confirmed 10/06/18] Fluticasone HFA 220 mcg(NF) [Flovent HFA 220 Mcg(NF)] 1 puff INH BID 10/06/18 [ History Confirmed 10/06/18] Gabapentin CAP(*) [Neurontin 100 mg CAP(*)] 100 mg PO TID 10/06/18 [History Confirmed 10/06/18] Magnesium Oxide [Magnesium] 400 mg PO DAILY 10/06/18 [History Confirmed 10/06/18 ] Mometasone NASAL (NF) [Nasonex (NF)] 2 spray INTRANASAL DAILY 10/06/18 [History Confirmed 10/06/18] Ropinirole TAB* [Requip TAB*] 0.5 mg PO DAILY 10/06/18 [History Confirmed ] PMH/Surg Hx/FS Hx/Imm Hx Other History Of: Anticoagulant Therapy - Surgical History Surgical History: Yes Surgery Procedure, Year, and Place: Cryo ablation, hysterectomy, hernia repair, cholecystectomy, knee surgery, cervical spine placement - Family History Known Family History: Positive: Cardiac Disease - mother, Hypertension - father Negative: Diabetes - Social History Alcohol Use: Rare Substance Use Type: None Smoking Status (MU): Never Smoked Tobacco - Immunization History Most Recent Influenza Vaccination: Fall 2016 Most Recent Tetanus Shot: unknown - received in past Most Recent Pneumonia Vaccination: never Physical Exam Vital Signs: Initial Vital Signs Temp 96.9 F 10/06/18 20:13 Pulse 74 10/06/18 20:13 Resp 22 10/06/18 20:13 BP 115/59 10/06/18 20:13 Pulse Ox 97 10/06/18 20:13 Discharge - Discharge Plan Referrals: Maksim VALERO,Eagle Alvarez [Primary Care Provider] -
--- NOTE | 2018-10-06 20:56 | UC ---
Respiratory Complaint HPI - HPI Summary HPI Summary: Has had progressive cough for the past 2 weeks, started on loratidine by her PMD without improvement. Now has increasing cough and shortness of breath. Uses flovent daily, singulair, nasonex and albuterol. Has a nebulizier unit at home which cannot be located. Coughing to point of incontinence. NO fever, sore throat, feels out of breath. Hx of pneumonia. - History of Current Complaint Chief Complaint: UCGeneralIllness Stated Complaint: COUGH/HEADACHE/BODY ACHES Time Seen by Provider: 10/06/18 20:46 Hx Obtained From: Patient Onset/Duration: Gradual Onset, Lasting Weeks Timing: Intermittent Episodes - of cough, last minutes. Severity Initially: Mild Severity Currently: Moderate Pain Intensity: 8 Character: Cough: Nonproductive Aggravating Factors: Exertion, Deep Breaths, Recumbent Position Alleviating Factors: Upright Position Associated Signs And Symptoms: Positive: Dyspnea Related History: Seasonal Allergies - Risk Factors Pulmonary Embolism Risk Factors: Negative Cardiac Risk Factors: Diabetes Pseudomonas Risk Factors: Negative Tuberculosis Risk Factors: Negative - Allergies/Home Medications Allergies/Adverse Reactions: Allergies Allergy/AdvReac Type Severity Reaction Status Date / Time latex Allergy Itching Verified 10/06/18 20:15 meloxicam Allergy Rash Verified 10/06/18 20:15 Penicillins Allergy Rash Verified 10/06/18 20:15 Home Medications: Home Medications Acetaminophen TAB* [Tylenol TAB*] 650 mg PO BID 10/06/18 [History Confirmed 02/16] Albuterol 2.5MG/3ML (0.083%)* [Ventolin 2.5 MG/3 ML NEB.DEN*] 2.5 mg INH Q4H PRN 10/06/18 [History Confirmed 10/06/18] Albuterol inh POWDER (NF) [Proair Respiclick] 2 puff INH Q4HR PRN 10/06/18 [ History Confirmed 10/06/18] Fluticasone HFA 220 mcg(NF) [Flovent HFA 220 Mcg(NF)] 1 puff INH BID 10/06/18 [ History Confirmed 10/06/18] Gabapentin CAP(*) [Neurontin 100 mg CAP(*)] 100 mg PO TID 10/06/18 [History Confirmed 10/06/18] Magnesium Oxide [Magnesium] 400 mg PO DAILY 10/06/18 [History Confirmed 10/06/18 ] Mometasone NASAL (NF) [Nasonex (NF)] 2 spray INTRANASAL DAILY 10/06/18 [History Confirmed 10/06/18] Ropinirole TAB* [Requip TAB*] 0.5 mg PO DAILY 10/06/18 [History Confirmed ] PMH/Surg Hx/FS Hx/Imm Hx - Additional Past Medical History Additional PMH: morbid obesitiy Previously Healthy: No Endocrine History: Diabetes Cardiovascular History: Cardiac Disease, Atrial Fibrillation Respiratory History: Asthma, Pneumonia GI/ History: Gastroesophageal Reflux Other History Of: Anticoagulant Therapy - Surgical History Surgical History: Yes Surgery Procedure, Year, and Place: Cryo ablation, hysterectomy, hernia repair, cholecystectomy, knee surgery, cervical spine placement - Family History Known Family History: Positive: Cardiac Disease - mother, Hypertension - father Negative: Diabetes - Social History Lives: With Family Alcohol Use: Rare Substance Use Type: None Smoking Status (MU): Never Smoked Tobacco - Immunization History Most Recent Influenza Vaccination: Fall 2016 Most Recent Tetanus Shot: unknown - received in past Most Recent Pneumonia Vaccination: never Review of Systems All Other Systems Reviewed And Are Negative: Yes Constitutional: Positive: Fatigue, Other - hx of pcn allergy is years ago, itchy rash, no anaphylaxis. Respiratory: Positive: Shortness Of Breath, Cough Gastrointestinal: Positive: Diarrhea - stools loose Genitourinary: Positive: Urgency, Other - incontinence Motor: Positive: Negative Neurological: Positive: Negative Psychological: Positive: Negative Physical Exam Triage Information Reviewed: Yes Appearance: Obese - No respiratory distress. Vital Signs: Initial Vital Signs Temp 96.9 F 10/06/18 20:13 Pulse 74 10/06/18 20:13 Resp 22 10/06/18 20:13 BP 115/59 10/06/18 20:13 Pulse Ox 97 10/06/18 20:13 Eyes: Positive: Conjunctiva Clear ENT: Positive: Pharynx normal, TMs normal Dental Exam: Other - edentulous Neck: Positive: Supple Respiratory: Positive: No accessory muscle use, Decreased breath sounds Cardiovascular Exam: Other - irregular irregular rhythm Cardiovascular: Positive: No Murmur Psychological Exam: Normal Skin Exam: Normal Re-Evaluation - Re-Evaluation First Eval Re-Evaluation Time: 21:30 - air entry improved Change: Improved Respiratory Course/Dx - Course Course Of Treatment: increase flovent to 4 puffs bid, add cephalexin, ensure uses nebs at home ( needs to locate unit) - Differential Dx/Diagnosis Differential Diagnosis/HQI/PQRI: Asthma, Laryngitis, Lower Resp Infection, Sinusitis Provider Diagnosis: Asthma Discharge - Sign-Out/Discharge Documenting (check all that apply): Patient Departure All imaging exams completed and their final reports reviewed: No Studies - Discharge Plan Condition: Stable Disposition: HOME Prescriptions: cephALEXin [Keflex] 500 mg PO TID #21 capsule Patient Education Materials: Asthma (ED) Referrals: Maksim VALERO,Eagle Alvarez [Primary Care Provider] - Additional Instructions: Begin cephalexin for bacterial component of asthma exacerbation. Increase Flovent to 4 puffs twice daily for 4 or 5 days, then decrease back to 2 puffs twice daily. Ensure that you are using your home nebulizer --this will help to decrease cough. Followup with your primary doctor if you are not improving in 3 days. It is not likely that you will have an allergic reaction to cephalexin, but if you develop rash, please ensure that you stop the medication and follow up. - Billing Disposition and Condition Condition: STABLE Disposition: Home
[2018-10-06] MEDS ORDERED: Levalbuterol 0.63MG/3ML NEB* UNIT OF USE INH ONE (21:03)
[2018-10-06] MEDS ORDERED: Cephalexin CAP* 500 MG PO ONE (21:25)
== END 2018-10-06 21:39 | disposition home or self-care (01) ==
LOC: UCCORT 19:55
DX: J45.909 Unspecified asthma, uncomplicated (principal); R06.00 Dyspnea, unspecified; E66.01 Morbid (severe) obesity due to excess calories; E11.9 Type 2 diabetes mellitus without complications; I51.9 Heart disease, unspecified; I48.91 Unspecified atrial fibrillation; K21.9 Gastro-esophageal reflux disease without esophagitis; Z79.01 Long term (current) use of anticoagulants; Z88.0 Allergy status to penicillin; Z88.8 Allergy status to other drugs, medicaments and biological substances; Z91.040 Latex allergy status
CPT/HCPCS: 99212; A9270-GY; G0463

== ENCOUNTER 2020-12-27 00:26 | Inpatient (IN) ==
[2020-12-27] MEDS ORDERED: Lactated Ringers 1000 ml BAG IV.FLUID IV ONE (00:30)
[2020-12-27 02:04] LABS: Hematocrit 41 % (35-47); Mean Corpuscular HGB Conc 31 g/dL (31-36); Mean Corpuscular Hemoglobin 27 pg (27-31); Mean Corpuscular Volume 86 fL (80-97); Mean Platelet Volume 8.3 fL (7.4-10.4); Platelet Count 299 10^3/uL (150-450); Red Blood Count 4.79 10^6 /uL (3.70-4.87); Red Cell Distribution Width 17 % (10-15); White Blood Count 26.2 10^3/uL (3.5-10.8)
[2020-12-27 02:10] LABS: Activated Partial Thrombo Time 30.7 seconds (26.0-38.0); INR 1.26 (0.86-1.15)
[2020-12-27] MEDS ORDERED: cefTRIAXone 1 gm/50 mL NS BAG 1 GM/50 ML BAG IV ONE (02:18)
[2020-12-27 02:21] LABS: Albumin 3.9 g/dL (3.2-5.2); Albumin/Globulin Ratio 1.3 (1-3); C Reactive Protein 41.01 mg/L (<8.01); Calcium 9.1 mg/dL (8.6-10.3); EGFR African American 113.8 (>60); Globulin 2.9 g/dL (2-4); Total Protein 6.8 g/dL (6.4-8.9)
[2020-12-27 02:22] LABS: Troponin I 0.01 ng/mL (<0.03)
[2020-12-27 02:27] LABS: ABS Basophils 0.1 10^3/ul (0-0.2); ABS Lymphocytes 0.9 10^3/ul (1.0-4.8); ABS Monocytes 1.8 10^3/ul (0-0.8); ABS Neutrophils 23.4 10^3/ul (1.5-7.7); Eosinophil % 0.1 %; Lymphocyte % 3.6 %
[2020-12-27 02:34] LABS: Urine Appearance Clear; Urine Bilirubin Negative (Negative); Urine Blood Negative (Negative); Urine Color Yellow; Urine Glucose 3+(>=500 mg/dL) (Negative); Urine Ketones Trace (Negative); Urine Nitrite Negative (Negative); Urine Protein Negative (Negative); Urine Specific Gravity 1.031 (1.002-1.030); Urine Urobilinogen Negative (Negative)
[2020-12-27 02:38] LABS: Urine Bacteria 1+ (Absent); Urine Red Blood Cell Absent (Absent); Urine Squamous Epithelial Cell Present (Absent); Urine White Blood Cell 1+(6-10/hpf) (Absent)
[2020-12-27] MEDS ORDERED: DOXYcycline 100 MG in NS 0.9% 250 ml 250 ML IVPB ONE (02:39)
[2020-12-27] MEDS ORDERED: Acetaminophen IV 1 GM/100ML 100 ML IV ONE (02:40)
[2020-12-27] MEDS ORDERED: NS 0.9% 250 ml 0 ML ONE (02:58)
[2020-12-27] MEDS ORDERED: Lactated Ringers 1000 ml BAG 1,000 ML IV SCH (03:00)
[2020-12-27] MEDS ORDERED: Amiodarone 150 mg IVPREMIX 150 MG/100 ML BAG IV ONE (03:00)
[2020-12-27] MEDS ORDERED: Ondansetron 4 mg VIAL 2 MG/ML 2 ml VIAL IV PRN (03:01)
[2020-12-27 03:23] LABS: Digoxin 0.9 ng/ml (0.8-2.0)
[2020-12-27] MEDS: Amiodarone 360 MG IVPREMIX 360 MG/200 ML BAG IV ONE ×2 (03:53→09:12)
[2020-12-27] MEDS ORDERED: Dextrose 50% Syringe 50 ml 25 GM/50 ML SYRINGE IV PUSH PRN (03:58)
[2020-12-27] MEDS ORDERED: DOXYcycline 100 MG in NS 0.9% 250 ml 250 ML IVPB SCH (04:00)
[2020-12-27 05:47] LABS: Hematocrit 37 % (35-47); Mean Corpuscular HGB Conc 32 g/dL (31-36); Mean Corpuscular Hemoglobin 28 pg (27-31); Mean Corpuscular Volume 85 fL (80-97); Mean Platelet Volume 8.2 fL (7.4-10.4); Platelet Count 262 10^3/uL (150-450); Red Blood Count 4.36 10^6 /uL (3.70-4.87); Red Cell Distribution Width 17 % (10-15); White Blood Count 25.5 10^3/uL (3.5-10.8)
[2020-12-27 05:48] LABS: ABS Basophils 0.1 10^3/ul (0-0.2); ABS Lymphocytes 0.8 10^3/ul (1.0-4.8); ABS Monocytes 1.9 10^3/ul (0-0.8); ABS Neutrophils 22.8 10^3/ul (1.5-7.7); Lymphocyte % 3.2 %
[2020-12-27 06:08] LABS: Albumin 3.5 g/dL (3.2-5.2); Albumin/Globulin Ratio 1.4 (1-3); Calcium 8.7 mg/dL (8.6-10.3); EGFR African American 120.3 (>60); EGFR Non-African American 99.4 (>60); Globulin 2.5 g/dL (2-4); Magnesium 1.3 mg/dL (1.9-2.7); Potassium 3.6 mmol/L (3.5-5.0); Total Bilirubin 0.9 mg/dL (0.2-1.0)
[2020-12-27] MEDS ORDERED: Magnesium Sulf 4 GM/100 ML IV 4,000 MG/100 ML BAG IVPB ONE (06:18)
[2020-12-27] MEDS ORDERED: Metoprolol Tartrate 5 mg VIAL 5 ml VIAL (1 mg/ml) IV PRN (07:49)
[2020-12-27] MEDS: KCL 20 MEQ/100 ML IVPREMIX 20 MEQ/100 ML BAG IV SCH ×2 (07:51→10:37)
[2020-12-27] MEDS: Acetaminophen IV 1 GM/100ML 100 ML IV PRN ×2 (07:59→16:45)
[2020-12-27] MEDS ORDERED: Aspirin EC 81 mg TAB.EC (enteric coated) PO SCH (09:00)
[2020-12-27] MEDS ORDERED: Amiodarone 360 MG IVPREMIX 360 MG/200 ML BAG IV SCH (09:15)
[2020-12-27 09:40] LABS: Phosphorus 3.1 mg/dL (2.5-5.0)
[2020-12-27] MEDS: DOXYcycline 100 MG in NS 0.9% 250 ml 250 ML IVPB SCH (17:11)
[2020-12-27] MEDS: cefTRIAXone 1 gm/50 mL NS BAG 1 GM/50 ML BAG IVPB SCH (21:50)
[2020-12-28] MEDS: DOXYcycline 100 MG in NS 0.9% 250 ml 250 ML IVPB SCH ×2 (06:11→17:18)
[2020-12-28] MEDS: Acetaminophen IV 1 GM/100ML 100 ML IV PRN (09:19)
[2020-12-28 11:00] LABS: Calcium 8.3 mg/dL (8.6-10.3); Magnesium 1.8 mg/dL (1.9-2.7); Potassium 4.1 mmol/L (3.5-5.0)
[2020-12-28 11:05] LABS: EGFR African American 96.2 (>60); EGFR Non-African American 79.5 (>60)
[2020-12-28] MEDS ORDERED: Magnesium Sulfate 2 gm BAG 2 GM/50 ML BAG IVPB ONE (11:40)
[2020-12-28] MEDS ORDERED: Albuterol/Ipratropium NEB.SOL (2.5/0.5 MG) 3 ML NEB.SOLN INH ONE (21:33)
[2020-12-28] MEDS ORDERED: Albuterol/Ipratropium NEB.SOL (2.5/0.5 MG) 3 ML NEB.SOLN ONE (21:56)
[2020-12-28] MEDS ORDERED: Furosemide 20 mg/2 ml IV VIAL IV SLOW PU ONE (22:04)
[2020-12-28] MEDS: cefTRIAXone 1 gm/50 mL NS BAG 1 GM/50 ML BAG IVPB SCH (22:34)
[2020-12-29] MEDS ORDERED: Furosemide 20 mg/2 ml IV VIAL IV SLOW PU ONE (00:55)
[2020-12-29 04:55] LABS: ABS Basophils 0.1 10^3/ul (0-0.2); ABS Eosinophils 0.1 10^3/ul (0-0.6); ABS Lymphocytes 1.4 10^3/ul (1.0-4.8); ABS Monocytes 1.3 10^3/ul (0-0.8); ABS Neutrophils 12.8 10^3/ul (1.5-7.7); Eosinophil % 0.4 %; Hematocrit 33 % (35-47); Hemoglobin 10.8 g/dL (12.0-16.0); Lymphocyte % 8.7 %; Mean Corpuscular HGB Conc 33 g/dL (31-36); Mean Corpuscular Hemoglobin 28 pg (27-31); Mean Corpuscular Volume 85 fL (80-97); Mean Platelet Volume 8.3 fL (7.4-10.4); Platelet Count 231 10^3/uL (150-450); Red Blood Count 3.87 10^6 /uL (3.70-4.87); Red Cell Distribution Width 17 % (10-15); White Blood Count 15.6 10^3/uL (3.5-10.8)
[2020-12-29 05:10] LABS: Potassium 3.7 mmol/L (3.5-5.0)
[2020-12-29 05:11] LABS: Calcium 8.2 mg/dL (8.6-10.3); EGFR African American 109.8 (>60); EGFR Non-African American 90.7 (>60)
[2020-12-29] MEDS: DOXYcycline 100 MG in NS 0.9% 250 ml 250 ML IVPB SCH ×2 (05:29→17:09)
[2020-12-29] MEDS ORDERED: LORazepam 2 mg VIAL 1 ml ONE (10:23)
[2020-12-29] MEDS ORDERED: Lorazepam PYXIS KEY ONE (10:23)
[2020-12-29] MEDS ORDERED: Furosemide 20 mg/2 ml IV VIAL IV ONE (12:34)
[2020-12-29] MEDS ORDERED: Iodixanol (CONTRAST) 320 MG/ML 100 ML SDV IV ONE (12:58)
[2020-12-29] MEDS ORDERED: Buffered Lidocaine 1% SYRIN 1 ml INTRADERM ONE (17:50)
[2020-12-29] MEDS: cefTRIAXone 1 gm/50 mL NS BAG 1 GM/50 ML BAG IVPB SCH (22:38)
[2020-12-30] MEDS: DOXYcycline 100 MG in NS 0.9% 250 ml 250 ML IVPB SCH (05:48)
[2020-12-30 06:34] LABS: ABS Eosinophils 0.1 10^3/ul (0-0.6); ABS Lymphocytes 1.7 10^3/ul (1.0-4.8); ABS Monocytes 1.5 10^3/ul (0-0.8); ABS Neutrophils 10.3 10^3/ul (1.5-7.7); Eosinophil % 1.1 %; Hematocrit 32 % (35-47); Hemoglobin 10.6 g/dL (12.0-16.0); Lymphocyte % 12.1 %; Mean Corpuscular HGB Conc 33 g/dL (31-36); Mean Corpuscular Hemoglobin 28 pg (27-31); Mean Corpuscular Volume 84 fL (80-97); Mean Platelet Volume 8.4 fL (7.4-10.4); Platelet Count 233 10^3/uL (150-450); Red Blood Count 3.83 10^6 /uL (3.70-4.87); Red Cell Distribution Width 17 % (10-15); White Blood Count 13.7 10^3/uL (3.5-10.8)
[2020-12-30 06:53] LABS: Calcium 8.3 mg/dL (8.6-10.3); EGFR African American 127.5 (>60); EGFR Non-African American 105.3 (>60); Potassium 3.6 mmol/L (3.5-5.0)
[2020-12-30] MEDS ORDERED: Lactated Ringers 1000 ml BAG 1,000 ML IV ONE (15:53)
[2020-12-30] MEDS: cefTRIAXone 2 GM ADDV.VIAL 2 GM in NS 0.9% 100 ml BAG 100 ML IV SCH (16:32)
[2020-12-31 05:18] LABS: Hematocrit 32 % (35-47); Hemoglobin 10.4 g/dL (12.0-16.0); Mean Corpuscular HGB Conc 33 g/dL (31-36); Mean Corpuscular Hemoglobin 28 pg (27-31); Mean Corpuscular Volume 85 fL (80-97); Mean Platelet Volume 8.1 fL (7.4-10.4); Platelet Count 261 10^3/uL (150-450); Red Blood Count 3.74 10^6 /uL (3.70-4.87); Red Cell Distribution Width 17 % (10-15); White Blood Count 14.6 10^3/uL (3.5-10.8)
[2020-12-31 05:27] LABS: ABS Basophils 0.1 10^3/ul (0-0.2); ABS Eosinophils 0.2 10^3/ul (0-0.6); ABS Monocytes 1.7 10^3/ul (0-0.8); ABS Neutrophils 10.5 10^3/ul (1.5-7.7); Eosinophil % 1.6 %; Lymphocyte % 13.6 %
[2020-12-31 05:36] LABS: Calcium 8.5 mg/dL (8.6-10.3); EGFR African American 115.9 (>60); EGFR Non-African American 95.8 (>60); Potassium 3.7 mmol/L (3.5-5.0)
[2020-12-31] MEDS ORDERED: Buffered Lidocaine 1% SYRIN 1 ml INTRADERM ONE (06:00)
[2020-12-31] MEDS ORDERED: Famotidine IV 10 MG/ML 2 ml VIAL (20 mg) IV ONE (06:00)
[2020-12-31] MEDS ORDERED: NS 0.9% 1000 ml BAG 1,000 ML IV SCH (06:00)
[2020-12-31] MEDS ORDERED: Lidocaine 4% TOPICAL 50 ML TOP.SOLN ONE (10:22)
[2020-12-31] MEDS ORDERED: Propofol 10 MG/ML 20 ML BTL ONE (10:33)
[2020-12-31] MEDS ORDERED: fentaNYL 100 mcg/2 ml 50 MCG/ML VIAL ONE (10:33)
[2020-12-31] MEDS ORDERED: Ondansetron 4 mg VIAL 2 MG/ML 2 ml VIAL ONE (10:33)
[2020-12-31] MEDS ORDERED: Ketamine HCL 50 mg/ml 10 ml VIAL (500 MG) ONE (10:33)
[2020-12-31] MEDS ORDERED: Midazolam 5 mg/5 ml VIAL 1 mg/ml 5 ml VIAL (5 mg) ONE (10:33)
[2020-12-31] MEDS ORDERED: Lidocaine 2% PF 5 ML VIAL ONE (10:33)
[2020-12-31] MEDS ORDERED: Glycopyrrolate IV 0.2 MG/ML 1 ML VIAL ONE (10:33)
[2020-12-31] MEDS ORDERED: Famotidine IV 10 MG/ML 2 ml VIAL (20 mg) ONE (10:49)
[2020-12-31] MEDS: cefTRIAXone 2 GM ADDV.VIAL 2 GM in NS 0.9% 100 ml BAG 100 ML IV SCH (15:49)
[2021-01-01] MEDS: Fluticasone NASAL SPRAY 50MCG 16 gm SPRAY BTL BOTH NARES SCH ×2 (05:58→11:53)
[2021-01-01 06:39] LABS: Hematocrit 32 % (35-47); Hemoglobin 10.3 g/dL (12.0-16.0); Mean Corpuscular HGB Conc 32 g/dL (31-36); Mean Corpuscular Hemoglobin 27 pg (27-31); Mean Corpuscular Volume 85 fL (80-97); Mean Platelet Volume 8.1 fL (7.4-10.4); Platelet Count 298 10^3/uL (150-450); Red Blood Count 3.77 10^6 /uL (3.70-4.87); Red Cell Distribution Width 17 % (10-15); White Blood Count 15.1 10^3/uL (3.5-10.8)
[2021-01-01 07:15] LABS: Calcium 8.4 mg/dL (8.6-10.3); EGFR African American 113.8 (>60); Potassium 3.9 mmol/L (3.5-5.0)
[2021-01-01 08:34] LABS: C Reactive Protein 166.95 mg/L (<8.01)
[2021-01-01 08:40] LABS: ABS Basophils 0.1 10^3/ul (0-0.2); ABS Eosinophils 0.4 10^3/ul (0-0.6); ABS Lymphocytes 2.1 10^3/ul (1.0-4.8); ABS Monocytes 1.5 10^3/ul (0-0.8); Eosinophil % 2.8 %; Lymphocyte % 13.7 %; RBC Morphology Normal (Normal)
[2021-01-01 11:42] LABS: Albumin 2.2 g/dL (3.4-4.7); Gamma Globulin 0.7 g/dL (0.6-1.6); Total Protein(PEP) 5.3 g/dL (6.3 - 7.9)
[2021-01-01] MEDS: cefTRIAXone 2 GM ADDV.VIAL 2 GM in NS 0.9% 100 ml BAG 100 ML IV SCH (16:12)
[2021-01-01] MEDS ORDERED: Fluticasone NASAL SPRAY 50MCG 16 gm SPRAY BTL BOTH NARES ONE (23:14)
[2021-01-02 06:17] LABS: C Reactive Protein 128.51 mg/L (<8.01); Calcium 8.5 mg/dL (8.6-10.3); EGFR African American 104.3 (>60); EGFR Non-African American 86.2 (>60); Potassium 3.9 mmol/L (3.5-5.0)
[2021-01-02] MEDS: Fluticasone NASAL SPRAY 50MCG 16 gm SPRAY BTL BOTH NARES SCH (09:26)
[2021-01-02] MEDS: cefTRIAXone 2 GM ADDV.VIAL 2 GM in NS 0.9% 100 ml BAG 100 ML IV SCH (14:48)
[2021-01-02 18:18] VITALS: BP 122/83
[2021-01-02 18:42] LABS: Albumin 6.3 mg/dL; Albumin/Globulin Ratio 0.53; Gamma Globulin 1.6 mg/dL; Protein,Total, Random Urine 18 mg/dL
== END 2021-01-02 18:30 | disposition home or self-care (01) | DRG 872 ==
LOC: ED 00:26 → ICU 03:02 → MEDTELE 12-29 18:13 → UNDODISIN 01-02 14:50
PROVIDERS: ADMIT Internal Medicine; ATTEND Internal Medicine
PROC: O.CATEE (2020-12-31 13:30)

== ENCOUNTER 2021-08-27 17:37 | Inpatient (IN) ==
[2021-08-27 18:53] LABS: ABS Basophils 0.1 10^3/ul (0-0.2); ABS Eosinophils 0.1 10^3/ul (0-0.6); ABS Lymphocytes 1.6 10^3/ul (1.0-4.8); ABS Monocytes 1.4 10^3/ul (0-0.8); ABS Neutrophils 14.5 10^3/ul (1.5-7.7); Eosinophil % 0.8 %; Hematocrit 40 % (35-47); Hemoglobin 12.3 g/dL (12.0-16.0); Lymphocyte % 9.2 %; Mean Corpuscular HGB Conc 31 g/dL (31-36); Mean Corpuscular Hemoglobin 23 pg (27-31); Mean Corpuscular Volume 74 fL (80-97); Mean Platelet Volume 7.7 fL (7.4-10.4); Nucleated Red Blood Cells % 0.1; Platelet Count 413 10^3/uL (150-450); Red Blood Count 5.41 10^6 /uL (3.70-4.87); Red Cell Distribution Width 22 % (10-15); White Blood Count 17.7 10^3/uL (3.5-10.8)
[2021-08-27 19:03] LABS: INR 1.16 (0.86-1.15)
[2021-08-27 19:15] LABS: High Sens Troponin Baseline 9 pg/mL (<15)
[2021-08-27] MEDS ORDERED: fentaNYL 100 mcg/2 ml 50 MCG/ML VIAL IV SLOW PU ONE ×2 (19:34→21:28)
[2021-08-27] MEDS ORDERED: Vancomycin 1,500 MG in NS 0.9% 250 ml 250 ML IVPB ONE (19:34)
[2021-08-27] MEDS ORDERED: Cefepime 2 GM in Dextrose 2 GM/50 ML BAG IV ONE (19:37)
[2021-08-27] MEDS ORDERED: Lactated Ringers 1000 ml BAG 2,000 ML IV ONE (19:37)
[2021-08-27] MEDS ORDERED: Lactated Ringers 1000 ml BAG 1,000 ML IV ONE (19:38)
[2021-08-27] MEDS ORDERED: Vancomycin 2,000 MG in NS 0.9% 500 ml BAG 500 ML IVPB ONE (20:00)
[2021-08-27 20:06] LABS: ALT 16 U/L (7-52); Albumin 3.8 g/dL (3.2-5.2); Albumin/Globulin Ratio 1.2 (1-3); Alkaline Phosphatase 97 U/L (35-149); Blood Urea Nitrogen 39 mg/dL (6-24); C Reactive Protein 30.03 mg/L (<8.01); CO2 Carbon Dioxide 19 mmol/L (22-32); Calcium 9.5 mg/dL (8.6-10.3); Chloride 100 mmol/L (101-111); Globulin 3.2 g/dL (2-4); Glucose 146 mg/dL (70-100); Sodium 130 mmol/L (135-145); eGFR CKD-EPI 82.7 (>60)
[2021-08-27 20:12] LABS: High Sensitivity Troponin 1 Hr 9 pg/mL (<15)
[2021-08-27 20:15] LABS: Anion Gap 11 mmol/L (2-11)
[2021-08-27] MEDS: Metoprolol Succinate XL 200 mg TAB PO SCH (20:42)
[2021-08-27] MEDS ORDERED: Ondansetron 4 mg VIAL 2 MG/ML 2 ml VIAL IV ONE (21:14)
[2021-08-27] MEDS ORDERED: NS 0.9% 500 ml BAG 500 ML ONE (21:17)
[2021-08-27] MEDS ORDERED: Iodixanol (CONTRAST) 320 MG/ML 100 ML SDV IV ONE (23:08)
[2021-08-28] MEDS ORDERED: Vancomycin per Pharmacy 1 EA NOTE FOLLOW UP SCH (02:00)
[2021-08-28] MEDS ORDERED: Albuterol 2.5mg/3 ml (0.083%) NEB.SOLN INH PRN (02:34)
[2021-08-28 02:39] LABS: Magnesium 1.9 mg/dL (1.9-2.7)
[2021-08-28 02:40] LABS: Potassium Redraw 5.3 mmol/L (3.5-5.0)
[2021-08-28 02:43] LABS: Corrected Retic Count 1.6 % (0.5-1.5); Hematocrit for Retic CNT 39 % (35-47); Immature Retic Fraction 0.54; RBC Retic Count 5.17 10^6/uL (3.70-4.87)
[2021-08-28] MEDS ORDERED: Dextrose 50% Syringe 50 ml 25 GM/50 ML SYRINGE IV PUSH PRN (02:48)
[2021-08-28 03:14] LABS: Folate > 20.00 ng/mL (5.90-24.80)
[2021-08-28 03:20] LABS: Total Iron Binding Capacity 545 mcg/dL (250-450); Transferrin 389 mg/dL (203-362)
[2021-08-28 03:44] LABS: Vitamin B12 465 pg/mL (180-914)
[2021-08-28] MEDS: Acetaminophen IV 1 GM/100ML 100 ML IV PRN (04:07)
[2021-08-28] MEDS: HYDROmorphone 0.5 MG/0.5 ML SYRINGE IV SLOW PU PRN ×2 (04:07→11:05)
[2021-08-28 06:47] LABS: Hematocrit 36 % (35-47); Hemoglobin 10.9 g/dL (12.0-16.0); Mean Corpuscular HGB Conc 31 g/dL (31-36); Mean Corpuscular Hemoglobin 23 pg (27-31); Mean Corpuscular Volume 74 fL (80-97); Mean Platelet Volume 7.6 fL (7.4-10.4); Platelet Count 352 10^3/uL (150-450); Red Blood Count 4.78 10^6 /uL (3.70-4.87); Red Cell Distribution Width 22 % (10-15); White Blood Count 16.6 10^3/uL (3.5-10.8)
[2021-08-28 07:02] LABS: Calcium 8.7 mg/dL (8.6-10.3); eGFR CKD-EPI 97.8 (>60)
[2021-08-28 07:07] LABS: Potassium 5.2 mmol/L (3.5-5.0)
[2021-08-28] MEDS: Aspirin EC 81 mg TAB.EC (enteric coated) PO SCH ×2 (08:43→08:57)
[2021-08-28] MEDS: Ciprofloxacin 0.3% OPTH.SOL 5 ML BTL RIGHT EYE SCH ×3 (08:44→21:27)
[2021-08-28] MEDS: prednisoLONE 1% OPHTH.SUSP 5 ML OPHTH.SUSP RIGHT EYE SCH ×3 (08:45→21:28)
[2021-08-28] MEDS ORDERED: Vancomycin 1,500 MG in NS 0.9% 250 ml 250 ML IVPB SCH (09:00)
[2021-08-28] MEDS: Nystatin TOP POWDER 15 GM BTL TOPICAL SCH ×2 (10:25→10:54)
[2021-08-28] MEDS: Metoprolol Succinate XL 200 mg TAB PO SCH (10:31)
[2021-08-28] MEDS: ceFAZolin VIAL 1 GM in NS 0.9% 50 ML 50 ML IVPB SCH ×2 (15:46→22:56)
[2021-08-28 15:47] LABS: Calcium 8.8 mg/dL (8.6-10.3); eGFR CKD-EPI 81.5 (>60)
[2021-08-28 15:48] LABS: Potassium 5.1 mmol/L (3.5-5.0)
[2021-08-28] MEDS: HYDROmorphone 1 MG/1 ML SYRINGE IV SLOW PU PRN (16:51)
[2021-08-29] MEDS: HYDROmorphone 1 MG/1 ML SYRINGE IV SLOW PU PRN ×2 (03:01→23:00)
[2021-08-29] MEDS: ceFAZolin VIAL 1 GM in NS 0.9% 50 ML 50 ML IVPB SCH ×3 (05:36→22:51)
[2021-08-29] MEDS ORDERED: Vancomycin Trough Check NOTE FOLLOW UP ONE (08:30)
[2021-08-29 08:35] LABS: ABS Basophils 0.1 10^3/ul (0-0.2); ABS Eosinophils 0.4 10^3/ul (0-0.6); ABS Lymphocytes 1.8 10^3/ul (1.0-4.8); ABS Monocytes 1.2 10^3/ul (0-0.8); Eosinophil % 3.5 %; Hematocrit 36 % (35-47); Lymphocyte % 15.4 %; Mean Corpuscular HGB Conc 31 g/dL (31-36); Mean Corpuscular Hemoglobin 23 pg (27-31); Mean Corpuscular Volume 74 fL (80-97); Mean Platelet Volume 7.3 fL (7.4-10.4); Platelet Count 327 10^3/uL (150-450); Red Blood Count 4.82 10^6 /uL (3.70-4.87); Red Cell Distribution Width 22 % (10-15); White Blood Count 11.4 10^3/uL (3.5-10.8)
[2021-08-29] MEDS: Aspirin EC 81 mg TAB.EC (enteric coated) PO SCH (08:55)
[2021-08-29] MEDS: Acetaminophen IV 1 GM/100ML 100 ML IV PRN (09:04)
[2021-08-29] MEDS: prednisoLONE 1% OPHTH.SUSP 5 ML OPHTH.SUSP RIGHT EYE SCH ×3 (09:05→20:45)
[2021-08-29] MEDS: Ciprofloxacin 0.3% OPTH.SOL 5 ML BTL RIGHT EYE SCH ×3 (09:05→20:45)
[2021-08-29] MEDS: Nystatin TOP POWDER 15 GM BTL TOPICAL SCH (09:06)
[2021-08-29 09:08] LABS: Calcium 8.9 mg/dL (8.6-10.3); Magnesium 1.8 mg/dL (1.9-2.7); eGFR CKD-EPI 93.9 (>60)
[2021-08-29 09:10] LABS: eGFR CKD-EPI 97.1 (>60)
[2021-08-29] MEDS ORDERED: Magnesium Sulfate 2 gm BAG 2 GM/50 ML BAG IVPB ONE (10:44)
[2021-08-30] MEDS: ceFAZolin VIAL 1 GM in NS 0.9% 50 ML 50 ML IVPB SCH ×3 (05:55→22:34)
[2021-08-30 06:08] LABS: ABS Basophils 0.1 10^3/ul (0-0.2); ABS Eosinophils 0.4 10^3/ul (0-0.6); ABS Lymphocytes 2.1 10^3/ul (1.0-4.8); ABS Monocytes 1.1 10^3/ul (0-0.8); Eosinophil % 3.2 %; Hematocrit 35 % (35-47); Lymphocyte % 18.1 %; Mean Corpuscular HGB Conc 31 g/dL (31-36); Mean Corpuscular Hemoglobin 23 pg (27-31); Mean Corpuscular Volume 75 fL (80-97); Mean Platelet Volume 7.3 fL (7.4-10.4); Platelet Count 326 10^3/uL (150-450); Red Blood Count 4.69 10^6 /uL (3.70-4.87); Red Cell Distribution Width 22 % (10-15); White Blood Count 11.7 10^3/uL (3.5-10.8)
[2021-08-30 06:51] LABS: C Reactive Protein 33.26 mg/L (<8.01); Calcium 8.7 mg/dL (8.6-10.3); Magnesium 1.7 mg/dL (1.9-2.7); Potassium 4.8 mmol/L (3.5-5.0); eGFR CKD-EPI 98.5 (>60)
[2021-08-30] MEDS: Acetaminophen IV 1 GM/100ML 100 ML IV PRN (07:48)
[2021-08-30] MEDS ORDERED: Magnesium Sulfate 2 gm BAG 2 GM/50 ML BAG IVPB ONE (08:51)
[2021-08-30] MEDS: prednisoLONE 1% OPHTH.SUSP 5 ML OPHTH.SUSP RIGHT EYE SCH ×3 (09:13→21:01)
[2021-08-30] MEDS: Aspirin EC 81 mg TAB.EC (enteric coated) PO SCH (09:13)
[2021-08-30] MEDS: Ciprofloxacin 0.3% OPTH.SOL 5 ML BTL RIGHT EYE SCH ×3 (09:13→21:01)
[2021-08-30] MEDS: Nystatin TOP POWDER 15 GM BTL TOPICAL SCH (15:07)
[2021-08-31] MEDS: ceFAZolin VIAL 1 GM in NS 0.9% 50 ML 50 ML IVPB SCH ×3 (05:44→21:17)
[2021-08-31] MEDS: Nystatin TOP POWDER 15 GM BTL TOPICAL SCH (08:53)
[2021-08-31] MEDS: Aspirin EC 81 mg TAB.EC (enteric coated) PO SCH (08:53)
[2021-08-31] MEDS: prednisoLONE 1% OPHTH.SUSP 5 ML OPHTH.SUSP RIGHT EYE SCH ×3 (08:53→21:20)
[2021-08-31] MEDS: Ciprofloxacin 0.3% OPTH.SOL 5 ML BTL RIGHT EYE SCH ×3 (08:53→21:20)
[2021-09-01] MEDS: ceFAZolin VIAL 1 GM in NS 0.9% 50 ML 50 ML IVPB SCH ×3 (06:18→22:12)
[2021-09-01] MEDS: Aspirin EC 81 mg TAB.EC (enteric coated) PO SCH (08:37)
[2021-09-01] MEDS: Ciprofloxacin 0.3% OPTH.SOL 5 ML BTL RIGHT EYE SCH ×3 (08:38→22:12)
[2021-09-01] MEDS: prednisoLONE 1% OPHTH.SUSP 5 ML OPHTH.SUSP RIGHT EYE SCH ×3 (08:39→22:12)
[2021-09-01] MEDS: Nystatin TOP POWDER 15 GM BTL TOPICAL SCH (14:55)
[2021-09-02] MEDS: ceFAZolin VIAL 1 GM in NS 0.9% 50 ML 50 ML IVPB SCH (04:39)
[2021-09-02 05:12] LABS: ABS Basophils 0.1 10^3/ul (0-0.2); ABS Eosinophils 0.3 10^3/ul (0-0.6); ABS Lymphocytes 2.3 10^3/ul (1.0-4.8); ABS Neutrophils 9.3 10^3/ul (1.5-7.7); Eosinophil % 2.3 %; Hematocrit 34 % (35-47); Hemoglobin 10.6 g/dL (12.0-16.0); Lymphocyte % 17.8 %; Mean Corpuscular HGB Conc 31 g/dL (31-36); Mean Corpuscular Hemoglobin 23 pg (27-31); Mean Corpuscular Volume 74 fL (80-97); Mean Platelet Volume 7.3 fL (7.4-10.4); Platelet Count 346 10^3/uL (150-450); Red Blood Count 4.55 10^6 /uL (3.70-4.87); Red Cell Distribution Width 22 % (10-15)
[2021-09-02 05:28] LABS: Calcium 8.8 mg/dL (8.6-10.3); Magnesium 1.4 mg/dL (1.9-2.7); Potassium 4.2 mmol/L (3.5-5.0); eGFR CKD-EPI 98.9 (>60)
[2021-09-02] MEDS ORDERED: Magnesium Sulfate 2 gm BAG 2 GM/50 ML BAG IVPB ONE (08:30)
[2021-09-02] MEDS: Aspirin EC 81 mg TAB.EC (enteric coated) PO SCH (09:45)
[2021-09-02] MEDS: Nystatin TOP POWDER 15 GM BTL TOPICAL SCH (09:52)
[2021-09-02] MEDS: Ciprofloxacin 0.3% OPTH.SOL 5 ML BTL RIGHT EYE SCH (09:52)
[2021-09-02] MEDS: prednisoLONE 1% OPHTH.SUSP 5 ML OPHTH.SUSP RIGHT EYE SCH (09:52)
[2021-09-02 11:17] VITALS: BP 141/59
== END 2021-09-02 12:50 | disposition home health service (06) | DRG 603 ==
LOC: ED 17:37 → SUATTDRO 08-28 01:51 → EDHOLD 08-28 01:51 → SSU 08-28 08:59 → MED 09-01 21:17
PROVIDERS: ADMIT Internal Medicine; ATTEND Internal Medicine

== ENCOUNTER 2022-01-06 19:15 | Inpatient (IN) ==
[2022-01-06 21:49] LABS: Hematocrit 41 % (35-47); Hemoglobin 13.8 g/dL (12.0-16.0); Mean Corpuscular HGB Conc 33 g/dL (31-36); Mean Corpuscular Hemoglobin 27 pg (27-31); Mean Corpuscular Volume 82 fL (80-97); Mean Platelet Volume 7.3 fL (7.4-10.4); Platelet Count 431 10^3/uL (150-450); Red Blood Count 5.07 10^6 /uL (3.70-4.87); Red Cell Distribution Width 18 % (10-15)
[2022-01-06 22:30] LABS: ALT 16 U/L (7-52); AST 14 U/L (13-39); Albumin 3.5 g/dL (3.2-5.2); Alkaline Phosphatase 109 U/L (35-149); Blood Urea Nitrogen 58 mg/dL (6-24); CO2 Carbon Dioxide 20 mmol/L (22-32); Calcium 9.5 mg/dL (8.6-10.3); Chloride 99 mmol/L (101-111); Globulin 3.5 g/dL (2-4); Glucose 131 mg/dL (70-100); Sodium 127 mmol/L (135-145); eGFR CKD-EPI 47.1 (>60)
[2022-01-06 22:40] LABS: Anion Gap 8 mmol/L (2-11); Potassium 6.6 mmol/L (3.5-5.0)
[2022-01-06 22:42] LABS: CRP High Sensitivity > 80.00 mg/L (<2.00)
[2022-01-06 22:45] LABS: ABS Basophils 0.1 10^3/ul (0-0.2); ABS Eosinophils 0.1 10^3/ul (0-0.6); ABS Lymphocytes 1.9 10^3/ul (1.0-4.8); ABS Monocytes 1.5 10^3/ul (0-0.8); ABS Neutrophils 14.4 10^3/ul (1.5-7.7); Eosinophil % 0.8 %; Lymphocyte % 10.4 %
[2022-01-06] MEDS ORDERED: AMPICILLIN ADVAN IVPB ONE (23:11)
[2022-01-06] MEDS ORDERED: NS 0.9% IVPB ONE (23:11)
[2022-01-06] MEDS ORDERED: Cefepime 2 GM in Dextrose 2 GM/50 ML BAG IV ONE (23:23)
[2022-01-06] MEDS ORDERED: metroNIDAZOLE IV 500 MG/100ML 500 MG/100 ML BAG IVPB ONE (23:23)
[2022-01-06] MEDS ORDERED: Lactated Ringers 500 ml BAG 500 ML IV ONE (23:36)
[2022-01-06] MEDS ORDERED: Vancomycin per Pharmacy 1 EA NOTE FOLLOW UP SCH (23:45)
[2022-01-07] MEDS ORDERED: Vancomycin 2,000 MG in NS 0.9% 500 ml BAG 500 ML IVPB ONE
[2022-01-07 00:07] LABS: Digoxin 1.8 ng/ml (0.8-2.0)
[2022-01-07 00:11] LABS: Erythrocyte Sed Rate 66 mm/Hr (0-29)
[2022-01-07] MEDS ORDERED: SODIUM ZIRCONIUM CYCLOSILICATE 10 GM PACKET PO ONE (01:01)
[2022-01-07] MEDS ORDERED: Dextrose 50% Syringe 50 ml 25 GM/50 ML SYRINGE IV PUSH PRN (01:20)
[2022-01-07] MEDS ORDERED: Albuterol HFA INHALER 8 gm MDI INH PRN (01:20)
[2022-01-07 01:21] LABS: Urine Appearance Slightly Cloudy; Urine Bilirubin Negative (Negative); Urine Blood 1+ (Small) (Negative); Urine Color Yellow; Urine Glucose 1+ (250mg/dL) (Negative); Urine Ketones Negative (Negative); Urine Specific Gravity 1.015 (1.005-1.030)
[2022-01-07 01:22] LABS: Urine Nitrite Negative (Negative); Urine Protein Negative (Negative); Urine Urobilinogen 0.2 (Negative) (Negative); Urine pH 5.5 (5.0-9.0)
[2022-01-07 01:27] LABS: Urine Bacteria Absent (Absent); Urine Red Blood Cell Trace(0-2/hpf) (Absent); Urine Squamous Epithelial Cell Present (Absent); Urine White Blood Cell 2+(11-20/hpf) (Absent)
[2022-01-07] MEDS: Nystatin TOP POWDER 15 GM BTL TOPICAL SCH (08:30)
[2022-01-07] MEDS: Ciprofloxacin 0.3% OPTH.SOL 5 ML BTL RIGHT EYE SCH ×4 (08:32→23:01)
[2022-01-07] MEDS: prednisoLONE 1% OPHTH.SUSP 5 ML OPHTH.SUSP RIGHT EYE SCH ×4 (08:32→23:01)
[2022-01-07] MEDS: metroNIDAZOLE IV 500 MG/100ML 500 MG/100 ML BAG IVPB SCH ×2 (09:01→16:17)
[2022-01-07] MEDS: Cefepime 1 GM in Dextrose 1 GM/50 ML BAG IV SCH ×2 (12:19→23:43)
[2022-01-07] MEDS ORDERED: Vancomycin Random Level NOTE FOLLOW UP ONE (13:30)
[2022-01-07] MEDS: Collagenase 250 units/gm OINT 1 tube TOPICAL SCH (13:46)
[2022-01-07 14:05] LABS: Hematocrit 38 % (35-47); Hemoglobin 12.4 g/dL (12.0-16.0); Mean Corpuscular HGB Conc 33 g/dL (31-36); Mean Corpuscular Hemoglobin 27 pg (27-31); Mean Corpuscular Volume 81 fL (80-97); Mean Platelet Volume 7.2 fL (7.4-10.4); Platelet Count 407 10^3/uL (150-450); Red Blood Count 4.64 10^6 /uL (3.70-4.87); Red Cell Distribution Width 18 % (10-15)
[2022-01-07 15:22] LABS: Calcium 8.7 mg/dL (8.6-10.3); eGFR CKD-EPI 75.9 (>60)
[2022-01-07 15:30] LABS: ABS Basophils 0.1 10^3/ul (0-0.2); ABS Eosinophils 0.1 10^3/ul (0-0.6); ABS Lymphocytes 1.3 10^3/ul (1.0-4.8); ABS Monocytes 1.6 10^3/ul (0-0.8); ABS Neutrophils 11.9 10^3/ul (1.5-7.7); Lymphocyte % 8.5 %
[2022-01-07] MEDS ORDERED: Gadoteridol (CONTRAST) 279.3 MG/ML 10 ML IV ONE (19:48)
[2022-01-08] MEDS: metroNIDAZOLE IV 500 MG/100ML 500 MG/100 ML BAG IVPB SCH ×3 (01:18→16:35)
[2022-01-08 06:56] LABS: ABS Basophils 0.1 10^3/ul (0-0.2); ABS Eosinophils 0.3 10^3/ul (0-0.6); ABS Lymphocytes 1.8 10^3/ul (1.0-4.8); ABS Monocytes 1.1 10^3/ul (0-0.8); ABS Neutrophils 7.6 10^3/ul (1.5-7.7); Eosinophil % 2.6 %; Hematocrit 35 % (35-47); Hemoglobin 11.7 g/dL (12.0-16.0); Lymphocyte % 16.6 %; Mean Corpuscular HGB Conc 34 g/dL (31-36); Mean Corpuscular Hemoglobin 27 pg (27-31); Mean Corpuscular Volume 81 fL (80-97); Mean Platelet Volume 7.3 fL (7.4-10.4); Platelet Count 370 10^3/uL (150-450); Red Cell Distribution Width 17 % (10-15); White Blood Count 10.9 10^3/uL (3.5-10.8)
[2022-01-08 07:08] LABS: Calcium 8.3 mg/dL (8.6-10.3); Potassium 4.8 mmol/L (3.5-5.0)
[2022-01-08] MEDS: prednisoLONE 1% OPHTH.SUSP 5 ML OPHTH.SUSP RIGHT EYE SCH ×3 (09:47→20:34)
[2022-01-08] MEDS: Ciprofloxacin 0.3% OPTH.SOL 5 ML BTL RIGHT EYE SCH ×3 (09:47→20:34)
[2022-01-08] MEDS: Nystatin TOP POWDER 15 GM BTL TOPICAL SCH (09:47)
[2022-01-08] MEDS: Collagenase 250 units/gm OINT 1 tube TOPICAL SCH (09:47)
[2022-01-08] MEDS: Cefepime 1 GM in Dextrose 1 GM/50 ML BAG IV SCH ×2 (12:06→21:57)
[2022-01-09] MEDS: metroNIDAZOLE IV 500 MG/100ML 500 MG/100 ML BAG IVPB SCH ×3 (00:09→21:19)
[2022-01-09 05:22] LABS: Hematocrit 35 % (35-47); Mean Corpuscular HGB Conc 32 g/dL (31-36); Mean Corpuscular Hemoglobin 26 pg (27-31); Mean Corpuscular Volume 82 fL (80-97); Mean Platelet Volume 6.9 fL (7.4-10.4); Platelet Count 357 10^3/uL (150-450); Red Blood Count 4.28 10^6 /uL (3.70-4.87); Red Cell Distribution Width 18 % (10-15); White Blood Count 11.5 10^3/uL (3.5-10.8)
[2022-01-09 05:42] LABS: Potassium 4.4 mmol/L (3.5-5.0); eGFR CKD-EPI 97.1 (>60)
[2022-01-09 08:53] LABS: C Reactive Protein 33.98 mg/L (<8.01)
[2022-01-09 09:40] LABS: ABS Basophils 0.1 10^3/ul (0-0.2); ABS Eosinophils 0.3 10^3/ul (0-0.6); ABS Lymphocytes 2.1 10^3/ul (1.0-4.8); ABS Monocytes 1.1 10^3/ul (0-0.8); ABS Neutrophils 7.8 10^3/ul (1.5-7.7); Eosinophil % 2.5 %; Lymphocyte % 18.1 %
[2022-01-09] MEDS: Nystatin TOP POWDER 15 GM BTL TOPICAL SCH (09:45)
[2022-01-09] MEDS: Ciprofloxacin 0.3% OPTH.SOL 5 ML BTL RIGHT EYE SCH ×3 (09:51→21:50)
[2022-01-09] MEDS: prednisoLONE 1% OPHTH.SUSP 5 ML OPHTH.SUSP RIGHT EYE SCH ×3 (09:51→21:50)
[2022-01-09] MEDS: Cefepime 1 GM in Dextrose 1 GM/50 ML BAG IV SCH (11:54)
[2022-01-09] MEDS ORDERED: Iodixanol (CONTRAST) 320 MG/ML 100 ML SDV IV ONE (12:33)
[2022-01-09] MEDS: Ondansetron ODT 4 mg TAB 4 MG TAB SL PRN (13:13)
[2022-01-09] MEDS: cefTRIAXone 2 gm/50 mL D5W 2 GM/50 ML BAG IV SCH (13:14)
[2022-01-09] MEDS: Collagenase 250 units/gm OINT 1 tube TOPICAL SCH (15:05)
[2022-01-10 07:01] LABS: ABS Basophils 0.1 10^3/ul (0-0.2); ABS Eosinophils 0.3 10^3/ul (0-0.6); ABS Lymphocytes 1.7 10^3/ul (1.0-4.8); ABS Neutrophils 7.5 10^3/ul (1.5-7.7); Eosinophil % 2.8 %; Hematocrit 36 % (35-47); Hemoglobin 12.1 g/dL (12.0-16.0); Lymphocyte % 15.8 %; Mean Corpuscular HGB Conc 34 g/dL (31-36); Mean Corpuscular Hemoglobin 27 pg (27-31); Mean Corpuscular Volume 81 fL (80-97); Mean Platelet Volume 7.1 fL (7.4-10.4); Platelet Count 358 10^3/uL (150-450); Red Blood Count 4.41 10^6 /uL (3.70-4.87); Red Cell Distribution Width 18 % (10-15); White Blood Count 10.5 10^3/uL (3.5-10.8)
[2022-01-10 07:20] LABS: Calcium 8.7 mg/dL (8.6-10.3); Magnesium 1.5 mg/dL (1.9-2.7); Potassium 4.6 mmol/L (3.5-5.0); eGFR CKD-EPI 97.1 (>60)
[2022-01-10] MEDS ORDERED: Magnesium Sulfate 2 gm BAG 2 GM/50 ML BAG IVPB ONE (07:34)
[2022-01-10] MEDS: prednisoLONE 1% OPHTH.SUSP 5 ML OPHTH.SUSP RIGHT EYE SCH ×3 (08:50→21:48)
[2022-01-10] MEDS: Ciprofloxacin 0.3% OPTH.SOL 5 ML BTL RIGHT EYE SCH ×3 (08:51→21:48)
[2022-01-10] MEDS: metroNIDAZOLE IV 500 MG/100ML 500 MG/100 ML BAG IVPB SCH ×2 (10:05→21:18)
[2022-01-10] MEDS: cefTRIAXone 2 gm/50 mL D5W 2 GM/50 ML BAG IV SCH (11:36)
[2022-01-10] MEDS: Collagenase 250 units/gm OINT 1 tube TOPICAL SCH (15:08)
[2022-01-10] MEDS: Nystatin TOP POWDER 15 GM BTL TOPICAL SCH (15:08)
[2022-01-11 07:34] LABS: ABS Basophils 0.1 10^3/ul (0-0.2); ABS Eosinophils 0.3 10^3/ul (0-0.6); ABS Lymphocytes 1.9 10^3/ul (1.0-4.8); ABS Monocytes 1.1 10^3/ul (0-0.8); ABS Neutrophils 8.2 10^3/ul (1.5-7.7); Eosinophil % 2.7 %; Hematocrit 36 % (35-47); Hemoglobin 11.9 g/dL (12.0-16.0); Lymphocyte % 16.5 %; Mean Corpuscular HGB Conc 33 g/dL (31-36); Mean Corpuscular Hemoglobin 27 pg (27-31); Mean Corpuscular Volume 82 fL (80-97); Mean Platelet Volume 7.2 fL (7.4-10.4); Platelet Count 374 10^3/uL (150-450); Red Blood Count 4.45 10^6 /uL (3.70-4.87); Red Cell Distribution Width 18 % (10-15); White Blood Count 11.6 10^3/uL (3.5-10.8)
[2022-01-11 07:52] LABS: Calcium 8.6 mg/dL (8.6-10.3); Magnesium 1.6 mg/dL (1.9-2.7); Potassium 4.4 mmol/L (3.5-5.0); eGFR CKD-EPI 93.9 (>60)
[2022-01-11] MEDS ORDERED: Magnesium Sulfate 2 gm BAG 2 GM/50 ML BAG IVPB ONE (08:09)
[2022-01-11] MEDS: Collagenase 250 units/gm OINT 1 tube TOPICAL SCH (09:49)
[2022-01-11] MEDS: prednisoLONE 1% OPHTH.SUSP 5 ML OPHTH.SUSP RIGHT EYE SCH ×2 (09:49→15:28)
[2022-01-11] MEDS: Ciprofloxacin 0.3% OPTH.SOL 5 ML BTL RIGHT EYE SCH ×2 (09:49→15:26)
[2022-01-11] MEDS: Nystatin TOP POWDER 15 GM BTL TOPICAL SCH (09:55)
[2022-01-11] MEDS: metroNIDAZOLE IV 500 MG/100ML 500 MG/100 ML BAG IVPB SCH ×2 (11:10→21:31)
[2022-01-11] MEDS: Ondansetron ODT 4 mg TAB 4 MG TAB SL PRN (13:21)
[2022-01-11] MEDS: cefTRIAXone 2 gm/50 mL D5W 2 GM/50 ML BAG IV SCH (13:22)
[2022-01-12 05:41] LABS: ABS Basophils 0.1 10^3/ul (0-0.2); ABS Eosinophils 0.3 10^3/ul (0-0.6); ABS Lymphocytes 2.1 10^3/ul (1.0-4.8); Eosinophil % 2.9 %; Hematocrit 38 % (35-47); Hemoglobin 11.9 g/dL (12.0-16.0); Lymphocyte % 17.8 %; Mean Corpuscular HGB Conc 32 g/dL (31-36); Mean Corpuscular Hemoglobin 26 pg (27-31); Mean Corpuscular Volume 82 fL (80-97); Platelet Count 381 10^3/uL (150-450); Red Blood Count 4.62 10^6 /uL (3.70-4.87); Red Cell Distribution Width 18 % (10-15); White Blood Count 11.5 10^3/uL (3.5-10.8)
[2022-01-12 06:20] LABS: C Reactive Protein 8.65 mg/L (<8.01); Calcium 8.5 mg/dL (8.6-10.3); Magnesium 1.7 mg/dL (1.9-2.7); Potassium 4.7 mmol/L (3.5-5.0); eGFR CKD-EPI 100.4 (>60)
[2022-01-12] MEDS ORDERED: Magnesium Sulfate 2 gm BAG 2 GM/50 ML BAG IVPB ONE (07:59)
[2022-01-12] MEDS: Nystatin TOP POWDER 15 GM BTL TOPICAL SCH (08:10)
[2022-01-12] MEDS: metroNIDAZOLE IV 500 MG/100ML 500 MG/100 ML BAG IVPB SCH ×2 (09:57→22:28)
[2022-01-12] MEDS: Collagenase 250 units/gm OINT 1 tube TOPICAL SCH (10:02)
[2022-01-12] MEDS: cefTRIAXone 2 gm/50 mL D5W 2 GM/50 ML BAG IV SCH (11:23)
[2022-01-13 06:27] LABS: ABS Basophils 0.1 10^3/ul (0-0.2); ABS Eosinophils 0.3 10^3/ul (0-0.6); ABS Lymphocytes 2.3 10^3/ul (1.0-4.8); ABS Monocytes 0.9 10^3/ul (0-0.8); ABS Neutrophils 6.8 10^3/ul (1.5-7.7); Eosinophil % 3.3 %; Hematocrit 36 % (35-47); Hemoglobin 11.5 g/dL (12.0-16.0); Lymphocyte % 21.9 %; Mean Corpuscular HGB Conc 32 g/dL (31-36); Mean Corpuscular Hemoglobin 26 pg (27-31); Mean Corpuscular Volume 82 fL (80-97); Mean Platelet Volume 7.2 fL (7.4-10.4); Platelet Count 361 10^3/uL (150-450); Red Cell Distribution Width 19 % (10-15); White Blood Count 10.3 10^3/uL (3.5-10.8)
[2022-01-13 06:51] LABS: Albumin 2.9 g/dL (3.2-5.2); Albumin/Globulin Ratio 1.2 (1-3); Calcium 8.6 mg/dL (8.6-10.3); Globulin 2.4 g/dL (2-4); Magnesium 1.7 mg/dL (1.9-2.7); Potassium 4.5 mmol/L (3.5-5.0); Total Bilirubin 0.3 mg/dL (0.2-1.0); Total Protein 5.3 g/dL (6.4-8.9); eGFR CKD-EPI 99.2 (>60)
[2022-01-13] MEDS: Nystatin TOP POWDER 15 GM BTL TOPICAL SCH (08:38)
[2022-01-13] MEDS: metroNIDAZOLE IV 500 MG/100ML 500 MG/100 ML BAG IVPB SCH ×2 (09:12→22:02)
[2022-01-13] MEDS: cefTRIAXone 2 gm/50 mL D5W 2 GM/50 ML BAG IV SCH (10:45)
[2022-01-14] MEDS: Nystatin TOP POWDER 15 GM BTL TOPICAL SCH (08:56)
[2022-01-15] MEDS: Nystatin TOP POWDER 15 GM BTL TOPICAL SCH (10:48)
[2022-01-16 09:58] LABS: ABS Basophils 0.1 10^3/ul (0-0.2); ABS Eosinophils 0.2 10^3/ul (0-0.6); ABS Lymphocytes 1.7 10^3/ul (1.0-4.8); ABS Monocytes 0.8 10^3/ul (0-0.8); ABS Neutrophils 7.2 10^3/ul (1.5-7.7); Eosinophil % 2.2 %; Hematocrit 38 % (35-47); Hemoglobin 12.4 g/dL (12.0-16.0); Lymphocyte % 17.3 %; Mean Corpuscular HGB Conc 32 g/dL (31-36); Mean Corpuscular Hemoglobin 27 pg (27-31); Mean Corpuscular Volume 83 fL (80-97); Mean Platelet Volume 7.3 fL (7.4-10.4); Platelet Count 352 10^3/uL (150-450); Red Blood Count 4.63 10^6 /uL (3.70-4.87); Red Cell Distribution Width 18 % (10-15); White Blood Count 9.9 10^3/uL (3.5-10.8)
[2022-01-16] MEDS: Nystatin TOP POWDER 15 GM BTL TOPICAL SCH (10:09)
[2022-01-16 10:46] LABS: Calcium 8.8 mg/dL (8.6-10.3); Potassium 4.4 mmol/L (3.5-5.0)
[2022-01-16 11:05] VITALS: BP 114/70
== END 2022-01-16 13:35 | disposition home or self-care (01) | DRG 603 ==
LOC: ED 19:15 → INTOOBSV 01-07 00:54 → SUATTDRO 01-07 00:54 → EDHOLD 01-07 00:54 → MED 01-07 06:10 → SUATTDRO 01-09 16:00
PROVIDERS: ADMIT Student in an Organized Health Care Education/Training Program; ATTEND Internal Medicine

== ENCOUNTER 2022-11-29 16:30 | Inpatient (IN) ==
[2022-11-29 18:42] LABS: ABS Basophils 0.1 10^3/uL (0.0-0.1); ABS Eosinophils 0.2 10^3/uL (0.0-0.5); ABS Lymphocytes 1.5 10^3/uL (1.0-4.8); ABS Monocytes 1.3 10^3/uL (0.0-0.9); ABS Neutrophils 14.6 10^3/uL (1.5-7.6); ABS Nucleated RBC 0.01 10^3/ul; Eosinophil % 1.4 %; Hematocrit 40.1 % (35-45); Hemoglobin 12.9 g/dL (11.5-14.3); Lymphocyte % 8.5 %; Mean Corpuscular Hemoglobin 24.6 pg (27-33); Mean Corpuscular Hgb Conc 32.2 g/dL (31-36); Mean Corpuscular Volume 76.6 fL (80-97); Mean Platelet Volume 7.9 fL (7.5-11.2); Nucleated Red Blood Cells % 0.1 /100 WBC (0.0-0.4); Platelet Count 410 10^3/uL (150-450); Red Blood Count 5.23 10^6/uL (3.63-4.92); Red Cell Distribution Width 19.3 % (12-17); White Blood Count 17.8 10^3/uL (3.8-11.8)
[2022-11-29 18:59] LABS: Albumin 3.7 g/dL (3.2-5.2); Albumin/Globulin Ratio 1.1 (1-3); Calcium 9.7 mg/dL (8.6-10.3); Creatinine, Serum 0.74 mg/dL (0.51-0.95); Globulin 3.3 g/dL (2-4); Total Bilirubin 0.7 mg/dL (0.2-1.0); eGFR CKD-EPI 90.3 (>60)
[2022-11-29 19:31] LABS: Digoxin 1.5 ng/ml (0.8-2.0)
[2022-11-29 20:03] LABS: High Sensitivity Troponin 1 Hr 7 pg/mL (<15)
[2022-11-29] MEDS ORDERED: Vancomycin 1,500 MG in NS 0.9% 250 ml 250 ML IVPB ONE (20:33)
[2022-11-29 21:14] LABS: C Reactive Protein 52.5 mg/L (<8.01)
[2022-11-29] MEDS ORDERED: cefTRIAXone 2 gm/50 mL D5W 2 GM/50 ML BAG IV SCH (22:00)
[2022-11-30] MEDS ORDERED: Dextrose 50% Syringe 50 ml 25 GM/50 ML SYRINGE IV PUSH PRN (02:48)
[2022-11-30] MEDS ORDERED: Albuterol HFA INHALER 8 gm MDI INH PRN (02:49)
[2022-11-30 07:28] LABS: ABS Basophils 0.2 10^3/uL (0.0-0.1); ABS Eosinophils 0.3 10^3/uL (0.0-0.5); ABS Lymphocytes 1.6 10^3/uL (1.0-4.8); ABS Monocytes 1.3 10^3/uL (0.0-0.9); ABS Neutrophils 10.6 10^3/uL (1.5-7.6); Eosinophil % 1.9 %; Hematocrit 38.4 % (35-45); Hemoglobin 12.4 g/dL (11.5-14.3); Lymphocyte % 11.2 %; Mean Corpuscular Hemoglobin 25.1 pg (27-33); Mean Corpuscular Hgb Conc 32.4 g/dL (31-36); Mean Corpuscular Volume 77.6 fL (80-97); Mean Platelet Volume 7.6 fL (7.5-11.2); Platelet Count 343 10^3/uL (150-450); Red Blood Count 4.95 10^6/uL (3.63-4.92); Red Cell Distribution Width 19.5 % (12-17)
[2022-11-30 07:45] LABS: C Reactive Protein 60.04 mg/L (<8.01); Calcium 8.8 mg/dL (8.6-10.3); Creatinine, Serum 0.64 mg/dL (0.51-0.95); Potassium 3.6 mmol/L (3.5-5.0); eGFR CKD-EPI 98.6 (>60)
[2022-11-30] MEDS: Nystatin TOP POWDER 15 GM BTL TOPICAL SCH ×2 (09:04→21:00)
[2022-11-30] MEDS: cefTRIAXone 2 gm/50 mL D5W 2 GM/50 ML BAG IV SCH (20:58)
[2022-11-30 22:41] LABS: Urine Appearance Cloudy; Urine Bilirubin Negative (Negative); Urine Blood 2+ (Negative); Urine Color Yellow; Urine Glucose 3+(>=500 mg/dL) (Negative); Urine Ketones Negative (Negative); Urine Nitrite Negative (Negative); Urine Protein Negative (Negative); Urine Specific Gravity 1.027 (1.002-1.030); Urine Urobilinogen Negative (Negative)
[2022-11-30 22:44] LABS: Urine Bacteria 1+ (Absent); Urine Red Blood Cell 2+(6-10/hpf) (Absent); Urine Squamous Epithelial Cell Present (Absent); Urine White Blood Cell 3+(>20/hpf) (Absent)
[2022-12-01 08:04] LABS: Hematocrit 34.9 % (35-45); Hemoglobin 11.4 g/dL (11.5-14.3); Mean Corpuscular Hgb Conc 32.6 g/dL (31-36); Mean Corpuscular Volume 76.5 fL (80-97); Mean Platelet Volume 7.4 fL (7.5-11.2); Platelet Count 306 10^3/uL (150-450); Red Blood Count 4.56 10^6/uL (3.63-4.92); Red Cell Distribution Width 19.8 % (12-17); White Blood Count 11.5 10^3/uL (3.8-11.8)
[2022-12-01 09:10] LABS: Microcytosis 1+
[2022-12-01 09:11] LABS: ABS Basophils 0.1 10^3/uL (0.0-0.1); ABS Eosinophils 0.3 10^3/uL (0.0-0.5); ABS Lymphocytes 1.9 10^3/uL (1.0-4.8); ABS Monocytes 1.1 10^3/uL (0.0-0.9); ABS Nucleated RBC 0.02 10^3/ul; Eosinophil % 2.6 %; Lymphocyte % 16.8 %; Nucleated Red Blood Cells % 0.1 /100 WBC (0.0-0.4)
[2022-12-01] MEDS: Nystatin TOP POWDER 15 GM BTL TOPICAL SCH ×2 (09:46→20:07)
[2022-12-01] MEDS: cefTRIAXone 2 gm/50 mL D5W 2 GM/50 ML BAG IV SCH (20:03)
[2022-12-01] MEDS: Magnesium Hydroxide LIQ 30 ML UDC PO SCH (20:04)
[2022-12-02] MEDS: Magnesium Hydroxide LIQ 30 ML UDC PO SCH ×2 (09:42→20:59)
[2022-12-02] MEDS: Nystatin TOP POWDER 15 GM BTL TOPICAL SCH ×2 (09:47→21:03)
[2022-12-02] MEDS: ORALSYR PO SCH (11:09)
[2022-12-02] MEDS: FUROSEMIDE PO SCH (11:09)
[2022-12-02] MEDS ORDERED: Iodixanol (CONTRAST) 320 MG/ML 100 ML SDV IV ONE (13:36)
[2022-12-02] MEDS: cefTRIAXone 2 gm/50 mL D5W 2 GM/50 ML BAG IV SCH (21:00)
[2022-12-03 06:01] LABS: Hematocrit 34.6 % (35-45); Hemoglobin 11.1 g/dL (11.5-14.3); Mean Corpuscular Hemoglobin 24.9 pg (27-33); Mean Platelet Volume 7.8 fL (7.5-11.2); Platelet Count 336 10^3/uL (150-450); Red Blood Count 4.44 10^6/uL (3.63-4.92); Red Cell Distribution Width 19.4 % (12-17); White Blood Count 12.8 10^3/uL (3.8-11.8)
[2022-12-03] MEDS: Magnesium Hydroxide LIQ 30 ML UDC PO SCH ×2 (10:00→20:19)
[2022-12-03] MEDS: FUROSEMIDE PO SCH (10:00)
[2022-12-03] MEDS: ORALSYR PO SCH (10:00)
[2022-12-03] MEDS: Nystatin TOP POWDER 15 GM BTL TOPICAL SCH ×2 (12:57→20:36)
[2022-12-04] MEDS: Magnesium Hydroxide LIQ 30 ML UDC PO SCH ×2 (07:56→20:27)
[2022-12-04] MEDS: FUROSEMIDE PO SCH (07:59)
[2022-12-04] MEDS: ORALSYR PO SCH (07:59)
[2022-12-04] MEDS: Nystatin TOP POWDER 15 GM BTL TOPICAL SCH ×2 (12:16→20:32)
[2022-12-05] MEDS: Magnesium Hydroxide LIQ 30 ML UDC PO SCH ×2 (10:17→20:39)
[2022-12-05] MEDS: Nystatin TOP POWDER 15 GM BTL TOPICAL SCH ×2 (10:19→20:42)
[2022-12-06 06:03] LABS: ABS Eosinophils 0.3 10^3/uL (0.0-0.5); ABS Lymphocytes 1.8 10^3/uL (1.0-4.8); ABS Monocytes 0.9 10^3/uL (0.0-0.9); ABS Neutrophils 7.4 10^3/uL (1.5-7.6); ABS Nucleated RBC 0.01 10^3/ul; Eosinophil % 2.7 %; Hematocrit 35.3 % (35-45); Hemoglobin 11.3 g/dL (11.5-14.3); Lymphocyte % 17.6 %; Mean Corpuscular Hemoglobin 25.2 pg (27-33); Mean Corpuscular Hgb Conc 32.1 g/dL (31-36); Mean Corpuscular Volume 78.5 fL (80-97); Mean Platelet Volume 7.5 fL (7.5-11.2); Nucleated Red Blood Cells % 0.1 /100 WBC (0.0-0.4); Platelet Count 330 10^3/uL (150-450); Red Cell Distribution Width 20.1 % (12-17); White Blood Count 10.5 10^3/uL (3.8-11.8)
[2022-12-06 06:36] LABS: Calcium 8.5 mg/dL (8.6-10.3); Creatinine, Serum 0.55 mg/dL (0.51-0.95); Potassium 4.2 mmol/L (3.5-5.0); eGFR CKD-EPI 102.3 (>60)
[2022-12-06] MEDS: Magnesium Hydroxide LIQ 30 ML UDC PO SCH ×2 (08:50→21:16)
[2022-12-06] MEDS: Nystatin TOP POWDER 15 GM BTL TOPICAL SCH ×2 (08:52→21:23)
[2022-12-07 07:07] LABS: ABS Basophils 0.1 10^3/uL (0.0-0.1); ABS Eosinophils 0.3 10^3/uL (0.0-0.5); ABS Lymphocytes 1.9 10^3/uL (1.0-4.8); ABS Neutrophils 7.6 10^3/uL (1.5-7.6); ABS Nucleated RBC 0.01 10^3/ul; Hematocrit 34.5 % (35-45); Hemoglobin 11.2 g/dL (11.5-14.3); Lymphocyte % 17.4 %; Mean Corpuscular Hemoglobin 25.6 pg (27-33); Mean Corpuscular Hgb Conc 32.5 g/dL (31-36); Mean Corpuscular Volume 78.6 fL (80-97); Mean Platelet Volume 7.2 fL (7.5-11.2); Platelet Count 330 10^3/uL (150-450); Red Blood Count 4.39 10^6/uL (3.63-4.92); Red Cell Distribution Width 19.6 % (12-17); White Blood Count 10.9 10^3/uL (3.8-11.8)
[2022-12-07 07:37] LABS: Calcium 8.4 mg/dL (8.6-10.3); Creatinine, Serum 0.54 mg/dL (0.51-0.95); Potassium 4.4 mmol/L (3.5-5.0); eGFR CKD-EPI 102.7 (>60)
[2022-12-07] MEDS: Nystatin TOP POWDER 15 GM BTL TOPICAL SCH ×2 (08:54→19:36)
[2022-12-07] MEDS: Magnesium Hydroxide LIQ 30 ML UDC PO SCH ×2 (08:55→19:37)
[2022-12-08 06:00] LABS: ABS Basophils 0.1 10^3/uL (0.0-0.1); ABS Eosinophils 0.3 10^3/uL (0.0-0.5); ABS Monocytes 0.9 10^3/uL (0.0-0.9); ABS Neutrophils 6.7 10^3/uL (1.5-7.6); Eosinophil % 3.3 %; Hematocrit 34.4 % (35-45); Hemoglobin 11.1 g/dL (11.5-14.3); Lymphocyte % 19.9 %; Mean Corpuscular Hemoglobin 25.1 pg (27-33); Mean Corpuscular Hgb Conc 32.4 g/dL (31-36); Mean Corpuscular Volume 77.7 fL (80-97); Mean Platelet Volume 7.5 fL (7.5-11.2); Platelet Count 330 10^3/uL (150-450); Red Blood Count 4.43 10^6/uL (3.63-4.92); Red Cell Distribution Width 19.8 % (12-17)
[2022-12-08 06:21] LABS: Calcium 8.5 mg/dL (8.6-10.3); Creatinine, Serum 0.51 mg/dL (0.51-0.95); Potassium 4.3 mmol/L (3.5-5.0); eGFR CKD-EPI 104.2 (>60)
[2022-12-08] MEDS: Magnesium Hydroxide LIQ 30 ML UDC PO SCH (08:26)
[2022-12-08] MEDS: Nystatin TOP POWDER 15 GM BTL TOPICAL SCH (08:28)
[2022-12-08 10:13] VITALS: BP 126/84
== END 2022-12-08 10:46 | DRG 871 ==
LOC: EDHOLD 16:30 → ED 16:30 → OBSVTOIN 22:00 → INTOOBSV 22:00 → SUATTDRO 22:00 → MEDTELE 11-30 01:08
PROVIDERS: ADMIT Hospitalist; ATTEND Internal Medicine

== ENCOUNTER 2023-07-07 14:02 | Inpatient (IN) ==
[2023-07-07] MEDS ORDERED: Vancomycin 1,250 MG in NS 0.9% 250 ml 250 ML IVPB ONE (15:00)
[2023-07-07] MEDS ORDERED: Piperacillin/Tazobac 3.375 BAG 3.375 GM/100 ML BAG IV SCH (15:00)
[2023-07-07] MEDS: ZOSYN 3.375 GM x ONE DOSE over 30 miuntes IV (16:07)
[2023-07-07 16:27] LABS: ABS Basophils 0.1 10^3/uL (0.0-0.1); ABS Eosinophils 0.2 10^3/uL (0.0-0.5); ABS Lymphocytes 2.2 10^3/uL (1.0-4.8); ABS Neutrophils 8.5 10^3/uL (1.5-7.6); ABS Nucleated RBC 0.02 10^3/ul; Eosinophil % 1.4 %; Hemoglobin 12.8 g/dL (11.5-14.3); Lymphocyte % 18.2 %; Mean Corpuscular Hemoglobin 26.7 pg (27-33); Mean Corpuscular Hgb Conc 32.1 g/dL (31-36); Mean Corpuscular Volume 83.2 fL (80-97); Mean Platelet Volume 7.5 fL (7.5-11.2); Nucleated Red Blood Cells % 0.1 %/100WBC (0.0-0.8); Platelet Count 377 10^3/uL (150-450); Red Blood Count 4.81 10^6/uL (3.63-4.92); Red Cell Distribution Width 17.9 % (12-17); White Blood Count 11.9 10^3/uL (3.8-11.8)
[2023-07-07 16:43] LABS: Albumin/Globulin Ratio 1.3 (1-3); C Reactive Protein 7.94 mg/L (<8.01); Calcium 9.5 mg/dL (8.6-10.3); Creatinine, Serum 0.55 mg/dL (0.51-0.95); Globulin 3.1 g/dL (2-4); Potassium 3.7 mmol/L (3.5-5.0); Total Bilirubin 0.6 mg/dL (0.2-1.0); Total Protein 7.1 g/dL (6.4-8.9); eGFR CKD-EPI 101.7 (>60)
[2023-07-07] MEDS: Vancomycin 2,000 MG in NS 0.9% 500 ml BAG 500 ML IVPB ONE (17:08)
[2023-07-07 18:22] LABS: Magnesium 1.8 mg/dL (1.9-2.7)
[2023-07-07] MEDS ORDERED: Zosyn per Pharmacy NOTE FOLLOW UP SCH (19:00)
[2023-07-07] MEDS ORDERED: Vancomycin per Pharmacy 1 EA NOTE FOLLOW UP SCH (19:00)
[2023-07-07] MEDS: Magnesium Sulfate IV 1GM/100ML 1 GM/100 ML BAG IV ONE (20:09)
[2023-07-07] MEDS: ZOSYN 3.375 GM Q8H per EXTENDED INFUSION IV SCH ×2 (22:00→23:57)
[2023-07-07] MEDS: Potassium Chlor 20 meq TAB.ER PO ONE (23:39)
[2023-07-07] MEDS: Potassium Chlor 10 meq TAB PO ONE (23:39)
[2023-07-08] MEDS: Vancomycin 1,250 MG in NS 0.9% 250 ml 250 ML IVPB SCH ×2 (04:10→04:16)
[2023-07-08 06:42] LABS: ABS Basophils 0.1 10^3/uL (0.0-0.1); ABS Eosinophils 0.2 10^3/uL (0.0-0.5); ABS Lymphocytes 2.2 10^3/uL (1.0-4.8); ABS Monocytes 0.9 10^3/uL (0.0-0.9); ABS Neutrophils 5.2 10^3/uL (1.5-7.6); Eosinophil % 2.9 %; Hematocrit 36.6 % (35-45); Hemoglobin 11.6 g/dL (11.5-14.3); Lymphocyte % 25.2 %; Mean Corpuscular Hemoglobin 26.4 pg (27-33); Mean Corpuscular Hgb Conc 31.7 g/dL (31-36); Mean Corpuscular Volume 83.3 fL (80-97); Mean Platelet Volume 7.5 fL (7.5-11.2); Platelet Count 328 10^3/uL (150-450); Red Blood Count 4.39 10^6/uL (3.63-4.92); Red Cell Distribution Width 17.5 % (12-17); White Blood Count 8.6 10^3/uL (3.8-11.8)
[2023-07-08 07:02] LABS: Calcium 8.7 mg/dL (8.6-10.3); Creatinine, Serum 0.52 mg/dL (0.51-0.95); Magnesium 1.8 mg/dL (1.9-2.7); Potassium 4.2 mmol/L (3.5-5.0)
[2023-07-08] MEDS: Empagliflozin 25 MG TAB PO SCH (09:04)
[2023-07-08] MEDS ORDERED: Vancomycin Trough Check NOTE FOLLOW UP ONE (19:30)
[2023-07-09] MEDS: Magnesium Sulfate 2 gm BAG 2 GM/50 ML BAG IVPB ONE (09:27)
[2023-07-09] MEDS: Magnesium Sulfate IV 1GM/100ML 1 GM/100 ML BAG IV ONE (11:05)
[2023-07-11] MEDS ORDERED: Senna TAB 8.6 mg TAB PO PRN (01:19)
[2023-07-11] MEDS: Polyethylene Glycol 3350 17 GM PACKET PO SCH (08:50)
[2023-07-12 09:56] VITALS: BP 131/90
[2023-07-12 14:01] LABS: Rapid COVID-19 Molecular Undetected (Undetected)
== END 2023-07-12 14:30 | DRG 871 ==
LOC: ED 14:02 → EDHOLD 14:02 → MEDTELE 20:12 → SUATTDRO 07-09 15:34
PROVIDERS: ADMIT Internal Medicine; ATTEND Hospitalist

== ENCOUNTER 2023-08-11 00:23 | Observation (INO) ==
[2023-08-11] MEDS: Lactated Ringers 1000 ml BAG 1,000 ML IV ONE (01:26)
[2023-08-11 01:31] LABS: ABS Basophils 0.2 10^3/uL (0.0-0.1); ABS Eosinophils 0.1 10^3/uL (0.0-0.5); ABS Lymphocytes 2.2 10^3/uL (1.0-4.8); ABS Monocytes 1.2 10^3/uL (0.0-0.9); ABS Neutrophils 9.4 10^3/uL (1.5-7.6); Eosinophil % 1.1 %; Hematocrit 40.3 % (35-45); Hemoglobin 12.8 g/dL (11.5-14.3); Mean Corpuscular Hgb Conc 31.8 g/dL (31-36); Mean Corpuscular Volume 81.6 fL (80-97); Platelet Count 284 10^3/uL (150-450); Red Blood Count 4.93 10^6/uL (3.63-4.92); Red Cell Distribution Width 17.7 % (12-17); White Blood Count 13.1 10^3/uL (3.8-11.8)
[2023-08-11 01:43] LABS: Activated Partial Thrombo Time 28.4 seconds (26.0-38.0); INR 1.07 (0.83-1.13)
[2023-08-11 02:05] LABS: Albumin 3.8 g/dL (3.2-5.2); Albumin/Globulin Ratio 1.3 (1-3); Calcium 9.3 mg/dL (8.6-10.3); Creatinine, Serum 0.6 mg/dL (0.51-0.95); Globulin 2.9 g/dL (2-4); Magnesium 1.6 mg/dL (1.9-2.7); Potassium 4.1 mmol/L (3.5-5.0); Total Bilirubin 0.8 mg/dL (0.2-1.0); Total Protein 6.7 g/dL (6.4-8.9); eGFR CKD-EPI 99.5 (>60)
[2023-08-11 02:15] LABS: T4, Total 13.11 mcg/dL (6.09-12.23)
[2023-08-11 02:19] LABS: TSH Ultra Thyroid Stim Horm 2.43 mcIU/mL (0.34-5.60)
[2023-08-11 03:23] LABS: High Sensitivity Troponin 1 Hr 7 pg/mL (<15)
[2023-08-11 04:49] LABS: Urine Appearance Clear; Urine Bacteria 1+ /HPF (Absent); Urine Bilirubin Negative (Negative); Urine Blood Negative (Negative); Urine Color Yellow; Urine Glucose 4+ (>=1000 mg/dL) (Negative); Urine Ketones Negative (Negative); Urine Nitrite 2+ (Negative); Urine Protein Negative (Negative); Urine Red Blood Cell Absent /HPF (0-Trace); Urine Squamous Epithelial Cell Present /HPF (Absent); Urine Urobilinogen Negative (Negative); Urine White Blood Cell 1+(6-10/hpf) /HPF (0-Trace)
[2023-08-11] MEDS: cefTRIAXone 1 gm/50 mL D5W 1 GM/50 ML BAG IV ONE (05:27)
[2023-08-11 07:46] LABS: C Reactive Protein 18.16 mg/L (<8.01)
[2023-08-11] MEDS ORDERED: Polyethylene Glycol 3350 17 GM PACKET PO PRN (10:13)
[2023-08-11] MEDS ORDERED: Senna TAB 8.6 mg TAB PO PRN (10:13)
[2023-08-11] MEDS ORDERED: Dextrose 50% Syringe 50 ml 25 GM/50 ML SYRINGE IV PUSH PRN (10:42)
[2023-08-11] MEDS ORDERED: Enoxaparin 40 MG/0.4 ML SYR SUBCUT SCH (11:00)
[2023-08-11] MEDS: Cefepime 2 GM in Dextrose 2 GM/50 ML BAG IV ONE (12:00)
[2023-08-11] MEDS: CMCS: Ketoconazole 2 % CREAM (NF) 30 GM TUBE TOPICAL SCH (12:00)
[2023-08-11] MEDS: NS 0.9% 1000 ml BAG 1,000 ML IV SCH (12:00)
[2023-08-11] MEDS: Magnesium Sulf 4 GM/100 ML IV 4,000 MG/100 ML BAG IVPB ONE (12:00)
[2023-08-11] MEDS: Empagliflozin 25 MG TAB PO SCH (12:00)
[2023-08-11] MEDS: ceFAZolin 2 GM PREMIX 2 GM/50 ML BAG IV SCH (19:50)
[2023-08-11] MEDS ORDERED: ceFAZolin 2 GM in NS PREMIX 2 GM/100 ML BAG IVPB SCH (20:00)
[2023-08-12 05:36] LABS: ABS Basophils 0.1 10^3/uL (0.0-0.1); ABS Eosinophils 0.3 10^3/uL (0.0-0.5); ABS Neutrophils 6.5 10^3/uL (1.5-7.6); Eosinophil % 3.1 %; Hematocrit 35.8 % (35-45); Hemoglobin 11.3 g/dL (11.5-14.3); Mean Corpuscular Hemoglobin 25.9 pg (27-33); Mean Corpuscular Hgb Conc 31.5 g/dL (31-36); Mean Corpuscular Volume 82.1 fL (80-97); Mean Platelet Volume 7.8 fL (7.5-11.2); Platelet Count 228 10^3/uL (150-450); Red Blood Count 4.36 10^6/uL (3.63-4.92); Red Cell Distribution Width 17.5 % (12-17)
[2023-08-12 05:54] LABS: Calcium 8.2 mg/dL (8.6-10.3); Creatinine, Serum 0.5 mg/dL (0.51-0.95); Magnesium 1.9 mg/dL (1.9-2.7); Phosphorus 3.6 mg/dL (2.5-5.0); Potassium 4.2 mmol/L (3.5-5.0)
[2023-08-12] MEDS: Magnesium Sulfate 2 gm BAG 2 GM/50 ML BAG IVPB ONE (10:01)
[2023-08-12] MEDS: Fluticasone NASAL SPRAY 50MCG 16 gm SPRAY BTL INTRANASAL PRN (10:07)
[2023-08-12] MEDS: Morphine 2 MG/ML SYRINGE IV PRN (12:40)
[2023-08-13 06:33] LABS: Calcium 8.1 mg/dL (8.6-10.3); Creatinine, Serum 0.62 mg/dL (0.51-0.95); Magnesium 1.8 mg/dL (1.9-2.7); Potassium 4.3 mmol/L (3.5-5.0); eGFR CKD-EPI 98.8 (>60)
[2023-08-13] MEDS: Magnesium Sulfate 2 gm BAG 2 GM/50 ML BAG IVPB ONE (08:39)
[2023-08-13 10:07] VITALS: BP 111/62
== END 2023-08-13 15:55 | disposition home or self-care (01) ==
LOC: EDHOLD 00:23 → ED 00:23 → SUATTDRO 10:13 → MEDTELE 14:46
PROVIDERS: ADMIT Hospitalist; ATTEND Student in an Organized Health Care Education/Training Program

== ENCOUNTER 2024-04-26 19:26 | Inpatient (IN) ==
[2024-04-26 20:08] LABS: Hematocrit 44.3 % (35-45); Mean Corpuscular Hemoglobin 26.4 pg (27-33); Mean Corpuscular Hgb Conc 31.5 g/dL (31-36); Mean Corpuscular Volume 83.7 fL (80-97); Mean Platelet Volume 8.2 fL (7.5-11.2); Platelet Count 221 10^3/uL (150-450); Red Blood Count 5.29 10^6/uL (3.63-4.92); White Blood Count 27.1 10^3/uL (3.8-11.8)
[2024-04-26 20:14] LABS: INR 1.16 (0.85-1.14)
[2024-04-26 20:33] LABS: Albumin 4.2 g/dL (3.2-5.2); Albumin/Globulin Ratio 1.6 (1-3); Calcium 9.3 mg/dL (8.6-10.3); Creatinine, Serum 0.63 mg/dL (0.51-0.95); Globulin 2.6 g/dL (2-4); Total Protein 6.8 g/dL (6.4-8.9); eGFR CKD-EPI 97.8 (>60)
[2024-04-26 20:38] LABS: ABS Lymphocytes 0.9 10^3/uL (1.0-4.8); ABS Monocytes 1.8 10^3/uL (0.0-0.9); ABS Neutrophils 24.2 10^3/uL (1.5-7.6); Anisocytosis 1+; Eosinophil % 0.1 %; Hypochromasia 1+; Lymphocyte % 3.4 %
[2024-04-26 21:21] LABS: High Sensitivity Troponin 1 Hr 10 pg/mL (<15)
[2024-04-26 22:34] LABS: Urine Appearance Clear; Urine Bilirubin Negative (Negative); Urine Blood Negative (Negative); Urine Color Yellow; Urine Glucose 4+ (>=1000 mg/dL) (Negative); Urine Ketones Negative (Negative); Urine Nitrite Negative (Negative); Urine Protein Trace (Negative); Urine Urobilinogen Negative (Negative); Urine pH 5.5 (5.0-8.0)
[2024-04-26] MEDS: fentaNYL 100 mcg/2 ml 50 MCG/ML VIAL IV SLOW PU ONE (23:17)
[2024-04-26] MEDS: Midazolam 2 mg/2 ml VIAL 1 mg/ml 2 ml VIAL (2 mg) IV SLOW PU ONE (23:18)
[2024-04-27 01:30] LABS: C Reactive Protein 11.33 mg/L (<8.01)
[2024-04-27 01:46] LABS: TSH Ultra Thyroid Stim Horm 0.88 mcIU/mL (0.34-5.60)
[2024-04-27] MEDS ORDERED: Sulfur Hexaflouride MICROSPHR 25 MG VIAL IV PRN (02:46)
[2024-04-27] MEDS: Acetaminophen IV 1 GM/100ML 1,000 MG/100 ML BAG IV PRN (03:01)
[2024-04-27] MEDS: Ondansetron 4 mg VIAL 2 MG/ML 2 ml VIAL IV PRN (03:01)
[2024-04-27 05:23] LABS: Hematocrit 36.9 % (35-45); Mean Corpuscular Hemoglobin 26.9 pg (27-33); Mean Corpuscular Hgb Conc 32.4 g/dL (31-36); Platelet Count 185 10^3/uL (150-450); Red Blood Count 4.45 10^6/uL (3.63-4.92); Red Cell Distribution Width 17.7 % (12-17); White Blood Count 23.4 10^3/uL (3.8-11.8)
[2024-04-27 05:38] LABS: ABS Lymphocytes 1.2 10^3/uL (1.0-4.8); ABS Monocytes 1.1 10^3/uL (0.0-0.9); ABS Nucleated RBC 0.01 10^3/ul; Lymphocyte % 5.2 %
[2024-04-27 06:03] LABS: Calcium 8.4 mg/dL (8.6-10.3); Creatinine, Serum 0.63 mg/dL (0.51-0.95); Magnesium 1.7 mg/dL (1.9-2.7); Potassium 3.9 mmol/L (3.5-5.0); eGFR CKD-EPI 97.8 (>60)
[2024-04-27] MEDS ORDERED: Dextrose 50% Syringe 50 ml 25 GM/50 ML SYRINGE IV PUSH PRN (06:13)
[2024-04-27] MEDS: HYDROcodone/ACETAMIN 5/325 mg TAB PO PRN (06:46)
[2024-04-27] MEDS: Magnesium Sulfate 2 gm BAG 2 GM/50 ML BAG IVPB ONE (06:52)
[2024-04-27] MEDS: cefTRIAXone 1 gm/50 mL D5W 1 GM/50 ML BAG IV SCH (07:54)
[2024-04-27] MEDS: Mometasone 220 MCG MDI INH SCH (08:31)
[2024-04-27] MEDS: Empagliflozin 25 MG TAB PO SCH (12:41)
[2024-04-28 06:55] LABS: ABS Eosinophils 0.1 10^3/uL (0.0-0.5); ABS Lymphocytes 1.6 10^3/uL (1.0-4.8); ABS Monocytes 1.1 10^3/uL (0.0-0.9); ABS Neutrophils 10.2 10^3/uL (1.5-7.6); Eosinophil % 1.1 %; Hematocrit 35.9 % (35-45); Hemoglobin 11.6 g/dL (11.5-14.3); Lymphocyte % 12.5 %; Mean Corpuscular Hemoglobin 26.8 pg (27-33); Mean Corpuscular Hgb Conc 32.5 g/dL (31-36); Mean Corpuscular Volume 82.4 fL (80-97); Mean Platelet Volume 8.2 fL (7.5-11.2); Platelet Count 169 10^3/uL (150-450); Red Blood Count 4.35 10^6/uL (3.63-4.92); Red Cell Distribution Width 17.6 % (12-17); White Blood Count 13.1 10^3/uL (3.8-11.8)
[2024-04-28 07:04] LABS: Calcium 8.4 mg/dL (8.6-10.3); Creatinine, Serum 0.71 mg/dL (0.51-0.95); Magnesium 1.9 mg/dL (1.9-2.7); Potassium 3.4 mmol/L (3.5-5.0); eGFR CKD-EPI 93.7 (>60)
[2024-04-28 17:06] LABS: TSH Ultra Thyroid Stim Horm 0.98 mcIU/mL (0.34-5.60)
[2024-04-29 06:19] LABS: ABS Eosinophils 0.2 10^3/uL (0.0-0.5); ABS Lymphocytes 1.9 10^3/uL (1.0-4.8); ABS Neutrophils 9.2 10^3/uL (1.5-7.6); Eosinophil % 1.3 %; Hemoglobin 11.4 g/dL (11.5-14.3); Lymphocyte % 15.5 %; Mean Corpuscular Hemoglobin 26.6 pg (27-33); Mean Corpuscular Hgb Conc 32.6 g/dL (31-36); Mean Corpuscular Volume 81.7 fL (80-97); Mean Platelet Volume 8.2 fL (7.5-11.2); Platelet Count 183 10^3/uL (150-450); Red Blood Count 4.28 10^6/uL (3.63-4.92); Red Cell Distribution Width 17.4 % (12-17); White Blood Count 12.2 10^3/uL (3.8-11.8)
[2024-04-29 06:36] LABS: Calcium 8.4 mg/dL (8.6-10.3); Creatinine, Serum 0.68 mg/dL (0.51-0.95); Magnesium 1.8 mg/dL (1.9-2.7); Potassium 3.7 mmol/L (3.5-5.0)
[2024-04-29] MEDS: Magnesium Sulfate 2 gm BAG 2 GM/50 ML BAG IVPB ONE (13:50)
[2024-04-29] MEDS: cefTRIAXone 1 gm/50 mL D5W 1 GM/50 ML BAG IV SCH (18:09)
[2024-04-30 06:34] LABS: ABS Basophils 0.1 10^3/uL (0.0-0.1); ABS Eosinophils 0.2 10^3/uL (0.0-0.5); ABS Lymphocytes 2.1 10^3/uL (1.0-4.8); ABS Monocytes 1.1 10^3/uL (0.0-0.9); ABS Neutrophils 7.8 10^3/uL (1.5-7.6); Eosinophil % 1.7 %; Hematocrit 36.1 % (35-45); Hemoglobin 11.6 g/dL (11.5-14.3); Lymphocyte % 18.6 %; Mean Corpuscular Hemoglobin 26.3 pg (27-33); Mean Corpuscular Volume 82.1 fL (80-97); Mean Platelet Volume 8.4 fL (7.5-11.2); Platelet Count 232 10^3/uL (150-450); Red Blood Count 4.39 10^6/uL (3.63-4.92); Red Cell Distribution Width 17.8 % (12-17); White Blood Count 11.3 10^3/uL (3.8-11.8)
[2024-04-30 06:46] LABS: Calcium 8.7 mg/dL (8.6-10.3); Creatinine, Serum 0.58 mg/dL (0.51-0.95); Potassium 3.7 mmol/L (3.5-5.0); eGFR CKD-EPI 99.7 (>60)
[2024-04-30 06:59] LABS: Magnesium 1.9 mg/dL (1.9-2.7)
[2024-05-01] MEDS: cefTRIAXone 1 gm/50 mL D5W 1 GM/50 ML BAG IV ONE (15:51)
[2024-05-01 19:01] VITALS: BP 101/68
== END 2024-05-01 19:15 | disposition home or self-care (01) | DRG 309 ==
LOC: EDHOLD 19:26 → ED 19:26 → EDHOLD 04-27 00:31 → SUATTDRO 04-27 02:06 → MEDTELE 04-27 02:32
PROVIDERS: ADMIT Internal Medicine; ATTEND Internal Medicine